=== PATIENT | female | born 1970 | race Caucasian/White ===

== ENCOUNTER 2019-09-07 18:00 | Emergency (ER) | payer SELFPAY ==
[~2019-09-07] VITALS: Ht 152.4 cm; Wt 59.0 kg
--- NOTE | 2019-09-07 18:30 | NUR ---
client stated to this RN that she no longer wanted to live, states that life without her son is too hard. client asked this RN to kill her, I advised Dr. Fulton of the conversation and called [facility] for sitter. client pulled her IV and let her arm dangle over the side of the bed to bleed onto the floor. this RN went into room to aske her why she had done that and she pretended to be unconcscious, clients eyes were twitching and client was asked to please stop this behavior. client awakened and began to cry.
[2019-09-07] MEDS ORDERED: SODIUM CHLORIDE 0.9% 1000ML 1,000 ML IV STA (19:11)
--- NOTE | 2019-09-07 19:20 | NUR ---
Seen pt lying on her right side, asleep. Sitter at bedside for continous monitoring.
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
[2019-09-07] MEDS ORDERED: ONDANSETRON HCL INJ 2MG/ML 2ML 2 MG/ML VIAL IV STA (20:36)
--- NOTE | 2019-09-07 20:54 | Diagnostic Imaging Report ---
Examination: Single AP view of the chest. COMPARISON: None. INDICATION: Seizure DISCUSSION: Lines/tubes: None. Lungs: The lungs are well inflated and clear. No pneumonia or pulmonary edema. Pleura: No pleural effusion or pneumothorax. Heart and mediastinum: The heart and the mediastinum are unremarkable. Bones and soft tissues: No acute bony abnormalities. IMPRESSION: 1. No acute cardiopulmonary abnormalities. Signed by: Dr. Daniel Parrish M.D. on 09/07/2019 8:50 PM
[2019-09-07 23:31] LABS: BASOPHILS # (AUTO) 0.1 (0.0-0.1); BASOPHILS % 0.9 % (0.0-1.0); EOSINOPHILS # (AUTO) 0.3 (0.0-0.4); EOSINOPHILS % 3.2 % (0.0-6.0); HEMATOCRIT 40.2 % (34.2-44.1); HEMOGLOBIN 13.3 g/dL (12.0-16.0); LYMPHOCYTES # (AUTO) 2.9 (1.0-3.2); LYMPHOCYTES % 36.2 % (18.0-39.1); MEAN CORPUSCULAR HEMOGLOBIN 32.1 pg (28-32); MEAN CORPUSCULAR HGB CONC 33.1 g/dL (31-35); MEAN CORPUSCULAR VOLUME 97.1 fL (81-99); MONOCYTES # (AUTO) 0.8 (0.2-0.8); MONOCYTES % 9.6 % (4.4-11.3); NEUTROPHILS # (AUTO) 4.1 (2.1-6.9); NEUTROPHILS % 49.7 % (38.7-80.0); PLATELET COUNT 288 x10e3/uL (140-360); RED BLOOD COUNT 4.14 x10e6/uL (3.6-5.1); RED CELL DISTRIBUTION WIDTH 14.1 % (11.7-14.4)
[2019-09-08 00:01] LABS: ALANINE AMINOTRANSFERASE 32 IU/L (0-55); ALBUMIN 3.8 g/dL (3.5-5.0); ALBUMIN/GLOBULIN RATIO 1.5 (0.8-2.0); ALKALINE PHOSPHATASE 76 IU/L (40-150); ANION GAP 15.1 mmol/L (8-16); BLOOD UREA NITROGEN 6 mg/dL (7-26); BUN/CREATININE RATIO 8 (6-25); CALCIUM 8.2 mg/dL (8.4-10.2); CARBON DIOXIDE 21 mmol/L (22-29); CHLORIDE 112 mmol/L (98-107); CREATINE KINASE 433 IU/L (29-168); CREATININE, SERUM 0.75 mg/dL (0.57-1.11); EST GLOMERULAR FILTRATION RATE > 60 ML/MIN (60-); GLUCOSE 102 mg/dL (74-118); POTASSIUM 3.1 mmol/L (3.5-5.1); SODIUM 145 mmol/L (136-145)
[2019-09-08 01:57] LABS: AMPHETAMINES SCREEN,URINE NEGATIVE (NEGATIVE); BENZODIAZEPINES SCREEN,URINE POSITIVE (NEGATIVE); PHENCYCLIDINE SCREEN,URINE NEGATIVE (NEGATIVE)
[2019-09-08] MEDS ORDERED: SODIUM CHLORIDE 0.9% 1000ML 1,000 ML IV STA (01:59)
[2019-09-08] MEDS: POTASSIUM CHLORIDE 20 MEQ TAB CR PO STA ×2 (05:45→06:10)
[2019-09-08] MEDS ORDERED: POTASSIUM CHLORIDE 20 MEQ TAB CR PO ONE (05:53)
[2019-09-08] MEDS ORDERED: SODIUM CHLORIDE 0.9% 1000ML 1,000 ML ONE (05:53)
== END 2019-09-08 09:11 | disposition home or self-care (01) ==
LOC: ER 18:00
DX: F10.10 Alcohol abuse, uncomplicated (principal); F17.210 Nicotine dependence, cigarettes, uncomplicated
CPT/HCPCS: 36415; 71045; 80053; 80307; 80320; 82550; 82553; 84484; 85025; 99285; J2405; J7030 ×2

== ENCOUNTER 2019-11-14 19:21 | Emergency (ER) | payer SELFPAY ==
[~2019-11-14] VITALS: Ht 152.4 cm; Wt 59.0 kg
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
[2019-11-14] MEDS ORDERED: BACITRACIN ZINC 0.9GM TP ONE (19:45)
--- NOTE | 2019-11-14 20:38 | Diagnostic Imaging Report ---
Exam: Left ankle 3 views History: Pain Comparison: None. Findings: No fracture or malalignment. Joint spaces preserved. No abnormal soft tissue calcification or soft tissue defect. Impression: No acute osseous abnormality Signed by: Dr. Daniel Parrish M.D. on 11/14/2019 8:35 PM
--- OUTSIDE RECORDS SUMMARY | 2019-11-14 22:39 | XMS REPORT | Continuity of Care Document ---
Author Author [facility] Organization [facility] Address [address] [place] [address] [address] [place] [address] Phone Unavailable Care Team Providers Care Hi Lo Driver Name Role Phone NO, PCP PCP Unavailable THEA MCKENZIE Attphys Unavailable Dameon JULES Attphys Unavailable Problems This patient has no known problems. Allergies, Adverse Reactions, Alerts This patient has no known allergies or adverse reactions. Social History Social Habit Start Date Stop Date Quantity Comments Source Sex Assigned At 1970 00:00:00 1970 00:00:00 Female [facility] Medications This patient has no known medications. Vital Signs Vital Name Observation Time Observation Value Comments Source Weight 2019-09-07 18:14:00 130 [lb_av] [facility] BMI (Body Mass Index) 2019-09-07 18:14:00 25.4 kg/m2 [facility] Procedures This patient has no known procedures. Plan of Care Planned Activity Planned Date Details Comments Source Instructions Alcohol Intoxication [facility] Results Test Description Test Time Test Comments Results Result Comments Source ANKLE 3+ VIEWS LEFT 2019-11-14 20:34:00 [facility] [address] [place], [place] [address] Patient Name: DORIAN DUBON MR #: [id number] : 1970 Age/Sex: 48/F Req #: [id number] Adm Physician: Ordered by: THEA MCKENZIE DO Report #: [id number] Location: ER Room/Bed: Procedure: [id number] DX/ANKLE 3+ VIEWS LEFT Exam Date: 11/14/19 Exam Time: 2009 REPORT STATUS: Signed Exam: Left ankle 3 views History: Pain Comparison: None. Findings: No fracture or malalignment. Joint spaces preserved. No abnormal soft tissue calcification or soft tissue defect. Impression: No acute osseous abnormality Signed by: Dr. Kristan Brennan M.D. on 11/14/2019 8:35 PM Dictated By: KRISTAN BRENNAN MD 34 Transcribed By: BETH on 11/14/192034 COPY TO: THEA MCKENZIE DO Urine opiates screening test 2019-09-08 01:10:00 Test Item Urine Opiates Screen (test code = 66147-1) NEGATIVE NEGATIVE ALL TESTS PERFORMED MANUALLY ON [employer] TOX/SEE TESTColumbus Community HospitalBarbiturates screen, [id number] 01:10:00* Test Item Value Reference Range Interpretation Comments Urine Barbiturates Screen (test code = 006505346) NEGATIVE NEGA TIVE [facility] HospitalU[facility] phencyclidine detection by screening [id number] 01:10:00* Test Item Value Reference Range Interpretation Comments Urine Phencyclidine Screen (test code = 66366-7) NEGATIVE NEGAT YAIMA [facility] HospitalUrine amphetamines detection by screen method > 1000 ng/bH1817-63-72 01:10:00* Test Item Value Reference Range Interpretation Comments Urine Amphetamines Screen (test code = 85110-3) NEGATIVE NEGATI VE [facility] HospitalFluoroscopic procedure less than one hour [id number] 01:10:00* Test Item Value Reference Range Interpretation Comments Urine Methamphetamines Screen (test code = Urine Metha mphetamines Screen) NEGATIVE NEGATIVE [facility] Hospital[facility] benzodiazepines detection by screening ilfmrc8285-45-71 01:10:00* Test Item Value Reference Range Interpretation Comments Urine Benzodiazepines Screen (test code = 29512-2) POSITIVE NEG ATIVE This test provides only a screen. Positive results should be repeated by a confi rmatory test.[facility] HospitalUrine cocaine measurement (mass/volume)2019-09-08 01:10:00* Test Item Value Reference Range Interpretation Comments Urine Cocaine Screen (test code = 3398-5) NEGATIVE NEGATIVE [facility] Hospital[facility] cannabinoids detection by screening udfutp2909-94-64 01:10:00* Test Item Value Reference Range Interpretation Comments Urine Cannabinoids Screen (test code = 52261-8) POSITIVE NEGATI VE This test provides only a screen. Positive results should be repeated by a confi rmatory test.[facility] HospitalU[facility] methadone screen 2019-09-08 01:10:00* Test Item Value Reference Range Interpretation Comments Urine Methadone Screen (test code = 26630-3) NEGATIVE NEGATIVE THESE RESULTS ARE FOR MEDICAL TREATMENT ONLYTHIS REPORT CONTAINS UNCONFIR MED SCREENING RESULTS*POSITIVE RESULTS WILL BE CONFIRMED BY REFERENCE LAB UPON R EQUEST CUT-OFFDRUG CLASS CONCENTRATION ng/mLAmphetamines 1000Methamphetamines 1000Cocaine Metabolite 300Opiate 300Phencyc lidine 25Cannabinoid 50Barbiturates 300Benzodiazepine 300Methadone 300[facility] automated count (number/volume) 2019-09-07 23:09:00* Test Item Value Reference Range Interpretation Comments White Blood Count (test code = 6690-2) 8.13 4.8-10.8 [facility]Blood erythrocytes automated count (number/volume)2019-09-07 23:09:00* Test Item Value Reference Range Interpretation Comments Red Blood Count (test code = 789-8) 4.14 3.6-5.1 [facility] HospitalBlood hemoglobin measurement (moles/volume)2019-09-07 23:09:00* Test Item Value Reference Range Interpretation Comments Hemoglobin (test code = 92773-8) 13.3 12.0-16.0 [facility] HospitalAutomated blood hematocrit (volume fraction)2019-09-07 23:09:00* Test Item Value Reference Range Interpretation Comments Hematocrit (test code = 4544-3) 40.2 34.2-44.1 [facility] HospitalAutomated erythrocyte mean corpuscular cwlypt5932-21-93 23:09:00* Test Item Value Reference Range Interpretation Comments Mean Corpuscular Volume (test code = 787-2) 97.1 81-99 [facility] HospitalAutom[facility] erythrocyte mean corpuscular hemoglobin (mass per erythrocyte)2019-09-07 23:09:00* Test Item Value Reference Range Interpretation Comments Mean Corpuscular Hemoglobin (test code = 785-6) 32.1 28-32 [facility] HospitalAutomated erythrocyte mean corpuscular hemoglobin concentration measurement (mass/volume)2019-09-07 23:09:00* Test Item Value Reference Range Interpretation Comments Mean Corpuscular Hemoglobin Concent (test code = 786-4) 33.1 31-35 [facility] HospitalRDW EjzDu-Mtg8897-60-29 23:09:00* Test Item Value Reference Range Interpretation Comments Red Cell Distribution Width (test code = 75855-9) 14.1 11.7 -14.4 [facility] HospitalAutom[facility] blood platelet count (count/volume)2019-09-07 23:09:00* Test Item Value Reference Range Interpretation Comments Platelet Count (test code = 777-3) 288 140-360 [facility] blood segmented neutrophil count as percentage of total bmohueqchf1783-27-98 23:09:00* Test Item Value Reference Range Interpretation Comments Neutrophils (%) (Auto) (test code = 10851-0) 49.7 38.7-80.0 [facility] HospitalAutom[facility] blood lymphocyte count as percentage ot total aawhjwyrmh8876-60-91 23:09:00* Test Item Value Reference Range Interpretation Comments Lymphocytes (%) (Auto) (test code = 736-9) 36.2 18.0-39.1 [facility] monocyte count as percentage of total pwpaueairj1586-12-61 23:09:00* Test Item Value Reference Range Interpretation Comments Monocytes (%) (Auto) (test code = 5905-5) 9.6 4.4-11.3 [facility] HospitalAutom[facility] blood eosinophil count as percentage of total zoxzmkbvxs7265-34-76 23:09:00* Test Item Value Reference Range Interpretation Comments Eosinophils (%) (Auto) (test code = 713-8) 3.2 0.0-6.0 [facility] HospitalAutnov[facility] hospitaled blood basophil count as percentage of total yyumfpekbv6082-34-99 23:09:00* Test Item Value Reference Range Interpretation Comments Basophils (%) (Auto) (test code = 706-2) 0.9 0.0-1.0 [facility] HospitalFluoroscopic procedure less than one hour jwjnrnjc5517-44-10 23:09:00* Test Item Value Reference Range Interpretation Comments IM GRANULOCYTES % (test code = IM GRANULOCYTES %) 0.4 0.0- 1.0 [facility] HospitalAutnov[facility] hospitaled blood neutrophil count 2019-09-07 23:09:00* Test Item Value Reference Range Interpretation Comments Neutrophils # (Auto) (test code = 751-8) 4.1 2.1-6.9 [facility] HospitalBlood lymphocytes count (number/volume) 2019-09-07 23:09:00* Test Item Value Reference Range Interpretation Comments Lymphocytes # (Auto) (test code = 76933-0) 2.9 1.0-3.2 [facility] monocytes automated count (number/volume)2019-09-07 23:09:00* Test Item Value Reference Range Interpretation Comments Monocytes # (Auto) (test code = 742-7) 0.8 0.2-0.8 [facility] HospitalAutomated blood eosinophil count 2019-09-07 23:09:00* Test Item Value Reference Range Interpretation Comments Eosinophils # (Auto) (test code = 711-2) 0.3 0.0-0.4 [facility] HospitalAutomated blood basophil count (count/volume)2019-09-07 23:09:00* Test Item Value Reference Range Interpretation Comments Basophils # (Auto) (test code = 704-7) 0.1 0.0-0.1 [facility] HospitalFluoroscopic procedure less than one hour qlprohlu9027-20-78 23:09:00* Test Item Value Reference Range Interpretation Comments Absolute Immature Granulocyte (auto (nely t code = Absolute Immature Granulocyte (auto) 0.03 0-0.1 [facility] or plasma sodium measurement (moles/volume)2019-09-07 23:09:00* Test Item Value Reference Range Interpretation Comments Sodium Level (test code = 2951-2) 145 136-145 [facility]ererum or plasma potassium measurement (moles/volume)2019-09-07 23:09:00* Test Item Value Reference Range Interpretation Comments Potassium Level (test code = 2823-3) 3.1 3.5-5.1 [facility]ere[facility] or plasma chloride measurement (moles/volume)2019-09-07 23:09:00* Test Item Value Reference Range Interpretation Comments Chloride Level (test code = 2075-0) 112 98-107 [facility]ererum or plasma carbon dioxide, total measurement (moles/volume)2019-09-07 23:09:00* Test Item Value Reference Range Interpretation Comments Carbon Dioxide Level (test code = 2028-9) 21 22- [facility]ererum or plasma anion dyx6529-75-90 23:09:00* Test Item Value Reference Range Interpretation Comments Anion Gap (test code = 29728-9) 15.1 8-16 [facility]ererum or plasma urea nitrogen measurement (mass/volume)2019-09-07 23:09:00* Test Item Value Reference Range Interpretation Comments Blood Urea Nitrogen (test code = 3094-0) 6 7-26 [facility]ererum or plasma creatinine measurement (mass/volume)2019-09-07 23:09:00* Test Item Value Reference Range Interpretation Comments Creatinine (test code = 2160-0) 0.75 0.57-1.11 [facility]ererum or plasma urea nitrogen/creatinine mass tvfct9601-53-49 23:09:00* Test Item Value Reference Range Interpretation Comments BUN/Creatinine Ratio (test code = 3097-3) 8 6-25 [facility] HospitalEstimated glomerular filtration rate (GFR) nqevbldgzftjj1528-42-88 23:09:00* Test Item Value Reference Range Interpretation Comments Estimat Glomerular Filtration Rate (test code = 344795062) > 60 >60 Ranges were taken from the National Kidney Disease Education Program and the [facility] Kidney Foundation literature.Reference ranges:60 or greater: Izzvdu69-07 ( for 3 consecutive months): Chronic kidney disease 15 or less: Kidney failureColumbus Community HospitalGlucose tbqdfdbccok0936-26-72 23:09:00* Test Item Value Reference Range Interpretation Comments Glucose Level (test code = EGL2672) 102 74-118 [facility]ererum or plasma calcium measurement (mass/volume)2019-09-07 23:09:00* Test Item Value Reference Range Interpretation Comments Calcium Level (test code = 27879-9) 8.2 8.4-10.2 [facility] HospitalFluoroscopic procedure less than one hour pfjvrott6664-71-72 23:09:00* Test Item Value Reference Range Interpretation Comments Aspartate Amino Transf (AST/SGOT) (test code = Aspartate Amino Transf (AST/SGOT)) 51 5-34 [facility]ererum or plasma alanine aminotransferase measurement (enzymatic activity/volume)2019-09-07 23:09:00* Test Item Value Reference Range Interpretation Comments Alanine Aminotransferase (ALT/SGPT) (test code = 1742-6) 32 0-55 [facility]ererum or plasma protein measurement (mass/volume)2019-09-07 23:09:00* Test Item Value Reference Range Interpretation Comments Total Protein (test code = 2885-2) 6.3 6.5-8.1 [facility]ererum or plasma albumin measurement (mass/volume)2019-09-07 23:09:00* Test Item Value Reference Range Interpretation Comments Albumin (test code = 1751-7) 3.8 3.5-5.0 [facility] HospitalPlasma globulin measurement (mass/volume) 2019-09-07 23:09:00* Test Item Value Reference Range Interpretation Comments Globulin (test code = 78284-6) 2.5 2.3-3.5 [facility]ererum or plasma albumin/globulin mass inrtu8427-31-48 23:09:00* Test Item Value Reference Range Interpretation Comments Albumin/Globulin Ratio (test code = 1759-0) 1.5 0.8-2.0 [facility]ererum or plasma alkaline phosphatase measurement (enzymatic activity/volume)2019-09-07 23:09:00* Test Item Value Reference Range Interpretation Comments Alkaline Phosphatase (test code = 6768-6) 76 40-150 [facility] Centererum or plasma creatine kinase measurement (enzymatic activity/volume)2019-09-07 23:09:00* Test Item Value Reference Range Interpretation Comments Creatine Kinase (test code = 2157-6) 433 29-168 [facility] Centererum or plasma creatine kinase MB measurement (mass/volume)2019-09-07 23:09:00* Test Item Value Reference Range Interpretation Comments Creatine Kinase MB (test code = 62621-2) 3.10 0-4.3 [facility] Centererum or plasma troponin i.cardiac measurement (mass/volume)2019-09-07 23:09:00* Test Item Value Reference Range Interpretation Comments Troponin I (test code = 38124-3) < 0.05 0.0-0.40 [facility] Centererum or plasma ethanol measurement (mass/volume)2019-09-07 23:09:00* Test Item Value Reference Range Interpretation Comments Ethyl Alcohol Level (test code = 5643-2) 210.8 0.0-10.0 [facility] HospitalCHEST SINGLE (PORTABLE)2019-09-07 20:49:00 [facility] [address] [place] [address] Patient Name: DORIAN DUBON MR #: [id number] : 1970 Age/Sex: 48/F Req #: [id number] Adm Physician: Ordered by: AMINAH GALLEGOS DO Report #: [id number] Location: ER Room/Bed: Procedure: [id number] DX/CHEST SIN GLE (PORTABLE) Exam Date: 09/07/19 Exam Time: 2014 REPORT STATUS: Signed Examination : Single AP view of the chest. COMPARISON: None. INDICATION: Seizure DISCUSSION: Lines/tubes: None. Lungs: The lungs are well in flated and clear. No pneumonia or pulmonary edema. Pleura: No pleural effu siddharth or pneumothorax. Heart and mediastinum: The heart and the mediastinum are unremarkable. Bones and soft tissues: No acute bony abnormalities. IMPRESSION: 1. No acute cardiopulmonary abnormalities. Signed by: Dr. Kristan Brennan M.D. on 09/07/2019 8:50 PM Dictated By: KRISTAN PATE MD 49 Trans cribed By: BETH on 09/07/192049 COPY TO: AMINAH GALLEGOS DO
== END 2019-11-14 21:10 | disposition home or self-care (01) ==
LOC: ER 19:32
DX: S91.002A Unspecified open wound, left ankle, initial encounter (principal); W10.8XXA Fall (on) (from) other stairs and steps, initial encounter; F10.10 Alcohol abuse, uncomplicated; F17.210 Nicotine dependence, cigarettes, uncomplicated
CPT/HCPCS: 99283

== ENCOUNTER 2019-12-06 08:51 | Emergency (ER) | payer SELFPAY ==
[~2019-12-06] VITALS: Ht 152.4 cm; Wt 59.0 kg
[2019-12-06] MEDS ORDERED: TYLENOL325 M2 PO (09:06)
[2019-12-06] MEDS ORDERED: AZITHROMYCIN250 MG PO (09:06)
[2019-12-06] MEDS ORDERED: DECADRON6 MG PO (09:06)
[2019-12-06] MEDS ORDERED: ZOFRAN4 MG SL (09:06)
[2019-12-06] MEDS ORDERED: ACETAMINOPHEN 325 MG TAB ONE (09:08)
[2019-12-06] MEDS ORDERED: ONDANSETRON HCL 4 MG ORAL DISINTEGRATING TAB ONE (09:08)
[2019-12-06] MEDS ORDERED: ACETAMINOPHEN 325 MG TAB PO ONE (09:15)
--- NOTE | 2019-12-06 09:17 | Emergency Department Note ---
History of Present Illnes History of Present Illness Chief Complaint: COVID PUI History of Present Illness This is a 49 year old female arrives the ED with complaints of cough fever and chills, states she is [facility] and there has been a recent outbreak of the coronavirus. Patient states she came to the ER to get checked out" with swabs. . 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 Arrival Mode: Car Onset (how long ago): day(s) Radiation: Reports non-radiation Severity: mild Duration (how long): day(s) Timing of current episode: constant Progression: waxing and waning Chronicity: new Context: Reports other (coronavirus exposure) Past Medical/Family History Physician Review I have reviewed the patient's past medical and family history. Any updates have been documented here. Past Medical History Recent Fever: No Clinical Suspicion of Infectio: Yes New/Unexplained Change in Ment: No Past Medical History: None Past Surgical History: Appendectomy, Hysterectomy, Other Surgery: PARTIAL HYSTERECTOMY RT KNEE SX Social History Physically hurt or threatened: No Review of Systems Review of Systems Constitutional: Reports fever EENTM: Reports no symptoms Cardiovascular: Reports no symptoms Respiratory: Reports as per HPI, Reports cough Gastrointestinal: Reports no symptoms Genitourinary: Reports no symptoms Musculoskeletal: Reports no symptoms Integumentary: Reports no symptoms Neurological: Reports no symptoms Psychological: Reports no symptoms Endocrine: Reports no symptoms Hematological/Lymphatic: Reports no symptoms Physical Exam Related Data Allergies: Coded Allergies: ketorolac (Verified Allergy, Intermediate, 12/06/19) meperidine (Verified Allergy, Intermediate, 12/06/19) tramadol (Verified Allergy, Intermediate, 12/06/19) Triage Vital Signs Vital Signs Date Time Temp Pulse Resp B/P (MAP) Pulse Ox O2 Delivery O2 Flow Rate FiO2 12/06/19 08:58 98.6 77 20 129/98 100 Room Air Vital signs reviewed: Yes Physical Exam CONSTITUTIONAL Constitutional: Present well-developed, Present well-nourished HENT HENT: Present normocephalic, Present atraumatic, Present oropharynx clear/moist, Present nose normal HENT L/R: Present left ext ear normal, Present right ext ear normal EYES Eyes: Reports PERRL, Reports conjunctivae normal NECK Neck: Present ROM normal PULMONARY Pulmonary: Present effort normal, Present breath sounds normal CARDIOVASCULAR Cardiovascular: Present regular rhythm, Present heart sounds normal, Present capillary refill normal, Present normal rate GASTROINTESTINAL Abdominal: Present soft, Present nontender, Present bowel sounds normal GENITOURINARY Genitourinary: Present exam deferred SKIN Skin: Present warm, Present dry MUSCULOSKELETAL Musculoskeletal: Present ROM normal NEUROLOGICAL Neurological: Present alert, Present oriented x 3, Present no gross motor or sensory deficits PSYCHOLOGICAL Psychological: Present mood/affect normal, Present judgement normal Assessment & Plan Medical Decision Making MDM 49-year-old well-appearing female arrives to the ED with complaints of cough fever loss of taste and smell. Patient is clinically presenting with signs and symptoms consistent with Covid 19. Patient informed she is positive until proven otherwise. Patient's oxygen saturation remained 99% even on exertion, no evidence of tachypnea or dyspnea noted in the ED. Spoke present length about the importance of sleeping on her stomach and rotating from side to side. Z-Aung given, signs and symptoms for return discussed. Assessment & Plan Final Impression: (1) COVID-19 Depart Disposition: HOME, SELF-CARE Last Vital Signs Date Time Temp Pulse Resp B/P (MAP) Pulse Ox O2 Delivery O2 Flow Rate FiO2 12/06/19 08:58 98.6 77 20 129/98 100 Room Air Home Meds Active Scripts Acetaminophen (Tylenol) 325 Mg Capsule, 650 MG PO Q8HR PRN for ELEVATED TEMPERATURE, #14 Prov:AMINAH GALLEGOS, DO 12/06/19 Dexamethasone (Decadron) 6 Mg Tablet, 6 MG PO DAILY, #5 Prov:AMINAH GALLEGOS, DO 12/06/19 Ondansetron Hcl* (ZOFRAN*) 4 Mg Tablet, 4 MG SL Q6HR PRN for NAUSEA, #14 MG 0 Refills Prov:SANGRDUTCHICA, DO 12/06/19 Azithromycin (Z-AUNG) 250 Mg Tablet, 1 PKG PO DIRECTED, #1 PKG 0 Refills Prov:AMINAH GALLEGOS DO 12/06/19 Medications in the ED Acetaminophen 650 mg STK-MED ONCE .ROUTE ; Start 12/06/19 at 09:08; Stop 12/06/19 at 09:01; Status DC Ondansetron HCl 4 mg STK-MED ONCE .ROUTE ; Start 12/06/19 at 09:08; Stop 12/06/19 at 09:01; Status DC [place], Dec 06, 2019 09:17
--- OUTSIDE RECORDS SUMMARY | 2019-12-06 09:20 | XMS REPORT | Clinical Summary ---
Author Author [facility] Organization [facility] Address Unknown Phone Unavailable Care Team Providers Care Hr Representative Name Role Phone PCP Unavailable Allergies Comments Active Allergy Reactions Severity Noted Date Povidone-Iodine 02/09/2019 Meperidine 02/09/2019 Ethyl Alcohol 02/09/2019 Ketorolac 02/09/2019 Tramadol 02/09/2019 Medications End Date Status Medication Sig Dispensed Refills Start Date Active gabapentin (NEURONTIN) Start with 1 80 tablet 2 800 mg tabletIndications: pills once 0 Radiculopathy day for 1-2 days and increase to 1 pills 2 times x 1-2 days and then if no side effects increase to 1 pills 3 times a day.. 07/19/2019 Discontinued (Therapy comple gretchen) acetaminophen-codeine Take 1 tablet 15 tablet 0 (TYLENOL/CODEINE #3) by mouth 9 300-30 mg per every 6 hours tabletIndications: as needed for Chronic low back pain Pain. with right-sided sciatica, unspecified back pain laterality 07/19/2019 Discontinued (Reorder) gabapentin (NEURONTIN) Take 1 tablet 70 tablet 1 0 800 mg tabletIndications: by mouth 3 0 Radiculopathy times daily. Active Problems Problem Noted Date Back pain 05/04/2019 Encounters Care Team Description Date Type Specialty Himanshu Delong MD Radiculopathy 07/19/2019 Telephonic Neurology Encounter Jesús Valencia MD Radiculopathy 06/01/2019 Hospital Radiology Encounter Jesús Valencia MD Khan, Abdul B, ResidentMD Radiculopathy (Primary Dx); Back pain 05/04/2019 Office Visit Neurosurgery Danitza Niteo Resident 05/04/2019 Orders Only Neurosurgery Dalton Mercado MD Chronic low back pain with right-sided s ciatica, unspecified back pain laterality (Primary Dx) 02/09/2019 Emergency Emergency Medicine after 12/05/2018 Family History Medical History Relation Name Comments Alzheimer's disease Mother Fibromyalgia Mother Relation Name Status Comments Mother Social History Date Tobacco Use Types Packs/Day Years Used Former Smoker Smokeless Tobacco: Never Used Sex Assigned at Date Recorded Not on file Industry Job Start Date Occupation Not on file Not on file Not on file Travel End Travel History Travel Start No recent travel history available. Last Filed Vital Signs Reading Time Taken Comments Vital Sign 105/73 05/04/2019 11:40 AM OIL OPERATOR Blood Pressure 108 05/04/2019 11:40 AM OIL OPERATOR Pulse 37 C (98.6 F) 05/04/2019 11:40 AM OIL OPERATOR Temperature 18 05/04/2019 11:40 AM OIL OPERATOR Respiratory Rate 99% 02/09/2019 12:08 PM CDT Oxygen Saturation - - Inhaled Oxygen Concentration 60.8 kg (134 lb) 05/04/2019 11:40 AM OIL OPERATOR Weight 157.5 cm (5' 2") 05/04/2019 11:40 AM OIL OPERATOR Height 24.51 05/04/2019 11:40 AM OIL OPERATOR Body Mass Index Plan of Treatment Health Maintenance Due Date Last Done Comments Cervical Cancer Scrn (3 1989 Yrs) Breast Cancer Scrn 2008 (Yearly) Colorectal Cancer Scrn 2018 Annual (FIT/FOBT) Age 50 to 75 IMM Influenza Seasonal 01/10/2020 Oct to June (>/= 19 yrs) Procedures Comments Procedure Name Priority Date/Time Associated Diag nosis MRI LUMBAR SPINE W/O OPAL 06/01/2019 Radiculop athy CONTRAST 10:26 AM OIL OPERATOR after 12/05/2018 Results * MRI LUMBAR SPINE W/O CONTRAST (06/01/2019 10:26 AM OIL OPERATOR) Specimen Impressions Performed At IMPRESSION: [facility] 1. Normal conus medullaris and cauda equina nerve roots. 2. Mild degenerative changes of the d isc and facet joints throughout the lumbar spine without significant sp inal canal or foraminal stenosis. No evidence of nerve root compression. 3. Subtle left-sided curvature. Dictated By: Jomar Grady MD, 06/04/2019 8 :11 AM I have reviewed the study and agree wit h the findings in this report. Signed By: Karis Silva MD, 06/05/2019 12 :52 AM Narrative Performed At Exam: MRI of the lumbar spine without contrast SMS History: Back pain, cauda equina syndro me suspected Radiculopathy Comparison studies: None Technique: Sagittal and axial T2, Sagittal T1 and Inversion recovery, axial T2 and spin density oblique. FINDINGS: Number of non-rib bearing lumbar verteb ral bodies: 5. Alignment: Normal lordosis.Subtle left- sided curvature. Soft tissues: No signal abnormalities. Posterior paraspinal muscles: Well pres erved. No signal abnormalities. Conus medullaris:Normal, ends at T12-L1 . Cauda equina: No masses or arachnoidi tis. Vertebrae: Normal in height and signal. No infection or neoplasm. Degenerative changes: Mildly degenerated discs from L1-2 to L 5-S1 with loss of normal T2 signal L1-L2: Minimal symmetric disc bulge without ca nal or foraminal stenosis. Patent spinal canal and foramina. L2-L3: Mild decreased disc height, asymmetric right disc bulge and bilateral facet arthroses. Minimal canal narrowin g. No foraminal stenosis. L3-L4 Mild asymmetric right disc bulge and bi lateral facet arthroses. No significant canal or foraminal stenoses . L4-L5: Mild bilateral facet arthroses. No sign ificant canal or foraminal stenoses. L5-S1: Mild facet arthrosis. No spinal canal o r foraminal stenosis. Procedure Note Interface, Rad/Mammog In - 06/05/2019 12:57 AM OIL OPERATOR Exam: MRI of the lumbar spine without contrast History: Back pain, cauda equina syndrome suspected Radiculopathy Comparison studies: None Technique: Sagittal and axial T2, Sagittal T1 and Inversion recovery, axial T2 and spin density oblique. FINDINGS: Number of non-rib bearing lumbar vertebral bodies: 5. Alignment: Normal lordosis.Subtle left-sided curvature. Soft tissues: No signal abnormalities. Posterior paraspinal muscles: Well preserved. No signal abnormalities. Conus medullaris:Normal, ends at T12-L1. Cauda equina: No masses or arachnoiditis. Vertebrae: Normal in height and signal. No infection or neoplasm. Degenerative changes: Mildly degenerated discs from L1-2 to L5-S1 with loss of normal T2 signal L1-L2: Minimal symmetric disc bulge without canal or foraminal stenosis. Patent spinal canal and foramina. L2-L3: Mild decreased disc height, asymmetric right disc bulge and bilateral facet arthroses. Minimal canal narrowing. No foraminal stenosis. L3-L4 Mild asymmetric right disc bulge and bilateral facet arthroses. No significant canal or foraminal stenoses. L4-L5: Mild bilateral facet arthroses. No significant canal or foraminal stenoses. L5-S1: Mild facet arthrosis. No spinal canal or foraminal stenosis. IMPRESSION IMPRESSION: 1. Normal conus medullaris and cauda eq uina nerve roots. 2. Mild degenerative changes of the dis c and facet joints throughout the lumbar spine without significant spinal canal or foraminal stenosis. No evidence of nerve root compression. 3. Subtle left-sided curvature. Dictated By: Jomar Grady MD, 06/04/2019 8:11 AM I have reviewed the study and agree with the findings in this report. Signed By: Karis Silva MD, 06/05/2019 12:52 AM Performing Organization Address City/State/Zipcode Ph one Number SMS after 12/05/2018 Insurance Type Payer Benefit Subscriber ID Effective Phone Address Plan / Dates Group [place] [employer] [place] 2019 [address] [employer] FAMILY - [id number] PLANNING [address] [place], [place] [id number] [facility] [employer] [employer] xxxxxxx 2019 [id number] [facility] [address] [place] [address]
--- OUTSIDE RECORDS SUMMARY | 2019-12-06 09:20 | XMS REPORT | Clinical Summary ---
Author Author [facility] Organization [facility] Address Unknown Phone Unavailable Care Team Providers Care User Experience Analyst Name Role Phone Selene Conteh MD PCP Allergies Comments Active Allergy Reactions Severity Noted Date Organ shut down Alcohol Other (See 04/15/2019 Comments) Isopropyl Alcohol Rash Low 04/15/2019 Prochlorperazine 07/12/2018 Meperidine 07/12/2018 Iodine Hives 08/20/2018 Ketorolac 07/12/2018 Tramadol 07/12/2018 Medications End Date Status Medication Sig Dispensed Refills Start Date Active gabapentin (NEURONTIN) Take 600 mg 0 600 mg tablet by mouth 3 (three) times a day. 12/17/2018 cyclobenzaprine Take 1 tablet 20 tablet 0 11/18/19 1 (FLEXERIL) 10 mg tablet (10 mg total) 9 by mouth 2 (two) times a day as needed for muscle spasms for up to 30 days. 02/02/2019 cyclobenzaprine Take 1 tablet 10 tablet 0 01/04/20 1 (FLEXERIL) 10 mg tablet (10 mg total) 9 by mouth 2 (two) times a day as needed for muscle spasms for up to 30 days. 01/08/2019 methylPREDNISolone follow 21 tablet 0 01 (MEDROL DOSEPAK) 4 mg package 9 tablet directions 01/04/2019 Discontinued (Reorder) acetaminophen-codeine Take 1 tablet 10 tablet 0 (TYLENOL WITH CODEINE #3) by mouth 9 300-30 mg per every 6 (six) tabletIndications: acute hours as pain needed for severe pain for up to 5 days .Acute Pain. 01/04/2019 Discontinued (Reorder) acetaminophen-codeine Take 1 tablet 10 tablet 0 (TYLENOL WITH CODEINE #3) by mouth 9 300-30 mg per every 6 (six) tabletIndications: acute hours as pain needed for severe pain for up to 5 days .Acute Pain. 01/09/2019 acetaminophen-codeine Take 1 tablet 10 tablet 0 (TYLENOL WITH CODEINE #3) by mouth 9 300-30 mg per every 6 (six) tabletIndications: acute hours as pain needed for severe pain for up to 5 days .Acute Pain. 02/08/2019 acetaminophen-codeine Take 1-2 15 tablet 0 01/10 (TYLENOL WITH CODEINE #3) tablets by 9 300-30 mg per mouth every 6 tabletIndications: acute (six) hours pain as needed for moderate pain for up to 4 days .Acute Pain. 03/15/2019 predniSONE (DELTASONE) 20 Take 2 20 tablet 0 mg tablet tablets (40 9 mg total) by mouth daily for 10 days. 04/04/2019 cyclobenzaprine Take 1 tablet 20 tablet 0 03/05/20 1 (FLEXERIL) 10 mg tablet (10 mg total) 9 by mouth 2 (two) times a day as needed for muscle spasms for up to 30 days. 04/15/2019 Discontinued (Med List Clean up) gabapentin (NEURONTIN) Take 300 mg 0 300 mg capsule by mouth 3 (three) times a day. 04/23/2019 methylPREDNISolone follow 21 tablet 0 02 (MEDROL, JOHNATHAN,) 4 mg package 0 tablet directions 04/25/2019 levoFLOXacin (LEVAQUIN) Take 1 tablet 7 tablet 0 750 MG tablet (750 mg 0 total) by mouth daily for 7 days. 05/18/2019 albuterol (PROAIR HFA) 90 Inhale 2 18 g 11 mcg/actuation inhaler puffs every 6 0 (six) hours as needed for wheezing for up to 30 days. 06/08/2019 acetaminophen-codeine Take 1 tablet 10 tablet 0 (TYLENOL WITH CODEINE #3) by mouth 0 300-30 mg per every 6 (six) tabletIndications: acute hours as pain needed for severe pain for up to 5 days .acute pain. Active Problems Problem Noted Date Acute renal failure 08/14/2018 Resolved Problems Problem Noted Date Resolved Date Lingular pneumonia 04/15/2019 04/18/2019 Encounters Care Team Description Date Type Specialty Ariana Real MD Sprain of left ankle, unspecified ligame nt, initial encounter (Primary Dx); Acute left ankle pain 06/03/2019 Emergency Emergency Medicine Yury Gamez Jr., MD Neela, Rekha Srinivas, MD Joglekar, Swati, MD Darr, Umar, MD Abouelseoud, Tanseem Hamad Mohamed A, MD Lingular pneumonia (Primary Dx) 04/15/2019 [facility] Internal Ks dicine - Encounter 04/18/2019 Anthony Prescott MD Chronic back pain, unspecified back loca tion, unspecified back pain laterality (Primary Dx) 03/05/2019 Emergency Emergency Medicine Eric Plata MD Chronic bilateral low back pain with rig ht-sided sciatica (Primary Dx) 02/04/2019 Emergency Emergency Medicine Carrillo Fiore MD Acute right-sided low back pain with augusto ateral sciatica (Primary Dx) 01/04/2019 Emergency Emergency Medicine Beltran Gomez MD Back pain with sciatica (Primary Dx) 01/03/2019 Emergency Emergency Medicine after 12/05/2018 Immunizations Name Administration Dates Next Due Pneumococcal 04/17/2019 (Deferred: Other - patient prefer Polysaccharide receiving at discharge) Social History Date Tobacco Use Types Packs/Day Years Used 07/16/2011 - 08/13/2018 Former Smoker Cigarettes 0.5 Smokeless Tobacco: Never Used Drinks/Week oz/Week Comments Alcohol Use stoipped alcohol use No Alcohol Habits Answer Date Recorded How often do you have a drink containing alcohol? Never 07/12/2018 How many drinks containing alcohol do you have on No t asked a typical day when you are drinking? How often do you have six or more drinks on one Not asked occasion? Sex Assigned at Date Recorded Not on file Industry Job Start Date Occupation Not on file Not on file Not on file Travel End Travel History Travel Start No recent travel history available. Last Filed Vital Signs Reading Time Taken Comments Vital Sign 100/71 06/03/2019 4:28 PM STARTING SHEET TANK OPERATOR Blood Pressure 92 06/03/2019 4:28 PM STARTING SHEET TANK OPERATOR Pulse 36.6 C (97.9 F) 06/03/2019 3:13 PM STARTING SHEET TANK OPERATOR Temperature 16 06/03/2019 4:28 PM STARTING SHEET TANK OPERATOR Respiratory Rate 96% 06/03/2019 4:28 PM STARTING SHEET TANK OPERATOR Oxygen Saturation - - Inhaled Oxygen Concentration 59 kg (130 lb) 06/03/2019 3:12 PM STARTING SHEET TANK OPERATOR Weight 157.5 cm (5' 2") 06/03/2019 3:12 PM STARTING SHEET TANK OPERATOR Height 23.78 06/03/2019 3:12 PM STARTING SHEET TANK OPERATOR Body Mass Index Plan of Treatment Health Maintenance Due Date Last Done Comments CERVICAL CANCER SCREENING 1989 BREAST CANCER SCREENING 2018 COLONOSCOPY SCREENING 2018 SHINGLES VACCINES (#1) 2018 INFLUENZA VACCINE 01/10/2020 01/09/2019 Procedures Comments Procedure Name Priority Date/Time Associated Diag nosis SPLINT APPLICATION Routine 06/03/2019 4:18 PM STARTING SHEET TANK OPERATOR XR ANKLE 3+ VW LEFT STAT 06/03/2019 3:37 PM STARTING SHEET TANK OPERATOR XR FOOT 3+ VW LEFT STAT 06/03/2019 3:37 PM STARTING SHEET TANK OPERATOR LACTIC ACID LEVEL Timed 04/16/2019 3:36 AM STARTING SHEET TANK OPERATOR LACTIC ACID LEVEL, SEPSIS Timed 04/15/2019 - NOW AND REPEAT 2X EVERY 11:56 PM STARTING SHEET TANK OPERATOR 3 HOURS LACTIC ACID LEVEL, SEPSIS Timed 04/15/2019 - NOW AND REPEAT 2X EVERY 8:51 PM STARTING SHEET TANK OPERATOR 3 HOURS LACTIC ACID LEVEL, SEPSIS Timed 04/15/2019 - NOW AND REPEAT 2X EVERY 5:44 PM STARTING SHEET TANK OPERATOR 3 HOURS CONSULT TO SEPSIS [facility]ine [facility]/15[facility]2019 [facility] RESPONSE TEAM 4:32 PM STARTING SHEET TANK OPERATOR CREATINE KINASE, TOTAL Routine 04/15/2019 (CPK) 3:21 PM STARTING SHEET TANK OPERATOR LACTIC ACID LEVEL Routine 04/15/2019 3:21 PM STARTING SHEET TANK OPERATOR BLOOD CULTURE, AEROBIC & Routine 04/15/2019 ANAEROBIC 10:47 AM STARTING SHEET TANK OPERATOR BLOOD CULTURE, AEROBIC & Routine 04/15/2019 ANAEROBIC 10:23 AM STARTING SHEET TANK OPERATOR XR CHEST 2 VW STAT 04/15/2019 9:28 AM STARTING SHEET TANK OPERATOR ESTIMATED GFR STAT 04/15/2019 9:03 AM STARTING SHEET TANK OPERATOR COMPREHENSIVE METABOLIC STAT 04/15/2019 PANEL 9:03 AM STARTING SHEET TANK OPERATOR HC COMPLETE BLD COUNT STAT 04/15/2019 W/AUTO DIFF 9:03 AM STARTING SHEET TANK OPERATOR STREP SCREEN CULTURE STAT 04/15/2019 9:00 AM STARTING SHEET TANK OPERATOR RESPIRATORY PATHOGEN Routine 04/15/2019 PANEL 8:46 AM STARTING SHEET TANK OPERATOR GROUP A STREP, RAPID Routine 04/15/2019 ANTIGEN 8:46 AM STARTING SHEET TANK OPERATOR INFLUENZA ANTIGEN TEST, Routine 04/15/2019 REFLEX NEGATIVE TO RPP 8:46 AM STARTING SHEET TANK OPERATOR MRI LUMBAR SPINE WO STAT 02/04/2019 CONTRAST 10:49 PM CDT ESTIMATED GFR STAT 02/04/2019 9:55 PM CDT COMPREHENSIVE METABOLIC STAT 02/04/2019 PANEL 9:55 PM CDT HC COMPLETE BLD COUNT STAT 02/04/2019 W/AUTO DIFF 9:[address] RENAL STONE PROTOCOL STAT 01/04/2019 10:53 PM CDT URINALYSIS SCREEN AND Routine 01/04/2019 MICROSCOPY, WITH REFLEX 8:[address] TO C[address]URE [address] LUMBAR SPINE WO STAT 01/03/2019 CONTRAST 12:04 PM CDT after 12/05/2018 Results * Splint Application (06/03/2019 4:18 PM STARTING SHEET TANK OPERATOR) Narrative Performed At Karl Dutton NP 2019 4:28 PM Splint Application Performed by: Karl Dutton NP Authorized by: Karl Dutton NP Consent: Consent obtained: Verbal Consent given by: Patient Risks discussed: Skin discoloration , distal paresthesia, pain and swelling Alternatives discussed: Referral Pre-procedure details: Sensation: Normal Skin color: [place] Procedure details: Laterality: Left Location: Ankle Ankle: L ankle Supplies used: Aircast and James wrap. Post-procedure details: Pain: Unchanged Sensation: Normal Skin color: [place] Patient tolerance of procedure: Cookie erated well, no immediate complications * XR Ankle 3+ Vw Left (06/03/2019 3:37 PM STARTING SHEET TANK OPERATOR) Specimen Narrative Performed At EXAMINATION: XR ANKLE 3 VW LEFT [facility] CLINICAL HISTORY: Ankle pain initia l exam COMPARISON: No Prior IMPRESSION: 1.The bones, soft tissues and joints ar e unremarkable. [facility]-[id number] Procedure Note Interface, Radiology Results Incoming - 06/03/2019 3:53 PM STARTING SHEET TANK OPERATOR EXAMINATION: XR ANKLE 3 VW LEFT CLINICAL HISTORY: Ankle pain initial exam COMPARISON: No Prior IMPRESSION: 1.The bones, soft tissues and joints are unremarkable. [id number] Performing Organization Address [facility] Ph one Number [facility] [address] [place] [address] * XR Foot 3+ Vw Left (06/03/2019 3:37 PM STARTING SHEET TANK OPERATOR) Specimen Narrative Performed At EXAMINATION: XR FOOT 3 VW LEFT [facility] CLINICAL HISTORY: Foot pain chronic etiol unknown initial exam COMPARISON: None. TECHNIQUE: 3 views of the left foot obt ained. IMPRESSION: Mild degenerative spurring at the ankle . Tiny plantar calcaneal spur. No acute fracture or dislocation or periarticula r erosion identified. [facility]-[id number] Procedure Note Interface, Radiology Results Incoming - 06/03/2019 3:42 PM STARTING SHEET TANK OPERATOR EXAMINATION: XR FOOT 3 VW LEFT CLINICAL HISTORY: Foot pain chronic etiol unknown initial exam COMPARISON: None. TECHNIQUE: 3 views of the left foot obtained. IMPRESSION: Mild degenerative spurring at the ankle. Tiny plantar calcaneal spur. No acute fracture or dislocation or periarticular erosion identified. [id number] Performing Organization Address [facility] one Number [facility] [address] [place] [address] * Lactic acid level (04/16/2019 3:36 AM STARTING SHEET TANK OPERATOR) Only the most recent of 2 results within the time period is included. Lactic acid 1.8 0.5 - 2.2 mmol/L [facility] Specimen Blood Performing Organization Address City/[facility] Ph one Number [facility] [address] [place] [address] PATHOLOGY AND GENOMIC MEDICINE [facility] [address] * Lactic acid level, SEPSIS - Now and repeat 2x every 3 hours (04/15/2019 11:56 PM STARTING SHEET TANK OPERATOR) Only the most recent of 3 results within the time period is included. Lactic acid 2.7 (H) 0.5 - 2.2 mmol/L [facility] Comment: [facility] Results called to and read [place] back by Ernesto Cordero/TAX PREPARER at HOSPITAL 04/16/2019 00:26 by ln. Specimen Blood Performing Organization Address City/State/[facility] Ph one Number [facility] [address] [place] [address] PATHOLOGY AND GENOMIC MEDICINE [facility] [address] * Sepsis Clinical Assessment (04/15/2019 4:32 PM STARTING SHEET TANK OPERATOR) Narrative Performed At Lucia Wilburn NP 04/15/2019 4:42 PM Source: Respiratory IVF Bolus: 500 cc bolus/ additional res ucitation in process IVF Maintenance: LR at 100/hr Blood Cultures: pending UA/UCX: n/a Sputum CX: RPP pending Lactic Acid: 3.5, continue to trend Anti-infective first dose: Azith/Roceph in Anti-infective scheduled dose: Azith/Ro cephin All measures in place for antibiotic co verage, continue trend lactic acid. Lingular PNA noted on chest xray. Discu ssed with Emmanual TAX PREPARER, additional fluid resuscitation being added. Defer further management to primary team. Patient appears in no acute distress at this time. Sepsis Clinical Assessment Performed by: Lucia Wilburn NP Authorized by: Lucia Wilburn NP Sepsis Clinical Assessment General Assessment Information Current sepsis score: 0 On comfort care?: No If score does not worsen, snooze alerts until: 04/15/2019 04:32 STARTING SHEET TANK OPERATOR SIRS Criteria Heart rate > 90 bpm due to acute condit ion Organ Dysfunction Lactate > 2.0 mmol/L due to acute condi tion Sepsis Assessment Clinical suspicion of infection? Yes Time of suspicion of infection: 020 4:33 PM Clinical suspicion of sepsis?: Yes Sepsis staging: Sepsis Sepsis protocol started? Yes Where did the protocol start?: ED Sta rted Clinical disposition: Remain in room Suspected Type/Source of Infection Suspected Type of Infection: Bacterial Suspected Source of Infection: Pneumoni a Other Acute Diagnoses Other Acute Diagnosis: Pneumonia Focus Exam Sepsis focus exam performed at 04/15/2019 4:33 PM Cardiopulmonary Exam Heart: Regular rate & rhythm Left Lung: Decreased Right Lung: Decreased Capillary Refill Capillary refill rate: Brisk, < 3 s Peripheral Pulses Left dorsalis pedis: Normal Right dorsalis pedis: Normal Left radial: Normal Right radial: Normal Skin Exam Skin exam: Skin color normal Sepsis Related Vitals Heart rate: 92 Temperature: (!) 97.3 F Respiratory rate: 17 Blood pressure: 90/54 Altered mental status: WBC (k/uL) Date Value 04/15/2019 10.1 02/04/2019 9.2 Weight-Based Fluid Bolus Calculation The recommended weight-based bolus volu me: 1,632 mL (dosing weight) Please refer to the MAR for actual med/ fluid administrations. * Creatine kinase, total (CPK) (04/15/2019 3:21 PM STARTING SHEET TANK OPERATOR) Creatine kinase 63 26 - 192 U/L [facility] Specimen Plasma specimen Performing Organization Address City/[facility] Ph one Number [facility] [address] [place] [address] PATHOLOGY AND GENOMIC MEDICINE [facility] [address] [facility] [address] * Blood culture, aerobic & anaerobic (04/15/2019 10:47 AM STARTING SHEET TANK OPERATOR) Only the most recent of 2 results within the time period is included. Blood culture No growth after 5 days of [facility] isolate incubation. [facility] Comment: HOSPITAL Specimen Information Specimen Source: Blood Specimen Site: LFT HAND Specimen Blood Performing Organization Address City/[facility] Ph one Number [facility] DEPARTMENT OF [address] [place] [address] PATHOLOGY AND GENOMIC MEDICINE [address] * XR Chest 2 Vw (04/15/2019 9:28 AM STARTING SHEET TANK OPERATOR) Specimen Narrative Performed At EXAMINATION: XR CHEST 2 VW [facility] CLINICAL HISTORY: Cough new onset COMPARISON: August 18, 2017 chest IMPRESSION: Moderate lingular pneumonia Previously noted right lower lobe pneum onia has cleared No congestion effusion or pneumothorax Cardiomediastinal silhouette normal siz e. Cervical fixator as on previous Two view chest. [id number] Procedure Note Hm Interface, Radiology Results Incoming - 04/15/2019 9:37 AM STARTING SHEET TANK OPERATOR EXAMINATION: XR CHEST 2 VW CLINICAL HISTORY: Cough new onset COMPARISON: August 18, 2017 chest IMPRESSION: Moderate lingular pneumonia Previously noted right lower lobe pneumonia has cleared No congestion effusion or pneumothorax Cardiomediastinal silhouette normal size. Cervical fixator as on previous Two view chest. [id number] Performing Organization Address [facility] Ph one Number [facility] [address] [place] [address] * Estimated GFR (04/15/2019 9:03 AM STARTING SHEET TANK OPERATOR) Only the most recent of 2 results within the time period is included. Pathologist [facility] Estimated GFR 74 mL/min/1.73 m2 [facility] Comment: [facility] G1 >=90 Normal or high G2 60-89 Mildly decreased G3a 45-59 Mildly to moderately decreased G3b 30-44 Moderately to severely decreased G4 15-29 Severely decreased G5 <15 Kidney failure The eGFR was calculated using the Chronic Kidney Disease Epidemiology Collaboration (CKD-EPI) equation. Interpretation is based on recommendations of the National Kidney Foundation-Kidney Disease Outcomes Quality Initiative (NKF-KDOQI) published in 2014. Specimen Plasma specimen Performing Organization Address City/[facility] Ph one Number [facility] [address] [place] [address] PATHOLOGY AND GENOMIC MEDICINE [facility] [address] * CBC with platelet and differential (04/15/2019 9:03 AM STARTING SHEET TANK OPERATOR) Only the most recent of 2 results within the time period is included. WBC 10.1 4.2 - 11.0 k/uL [facility] RBC 4.50 4.04 - 5.86 m/uL [facility] HGB 14.2 11.5 - 15.3 g/dL [facility] HCT 42.7 34.0 - 45.0 % [facility] MCV 94.9 80.0 - 98.0 fL [facility] MCH 31.6 27.0 - 34.0 pg [facility] MCHC 33.3 31.5 - 36.5 g/dL [facility] RDW - SD 44.8 37.0 - 51.0 fL [facility] MPV 9.8 7.4 - 10.4 fL [facility] Platelet count 320 150 - 400 k/uL [facility] Nucleated RBC 0.00 /100 WBC [facility] Neutrophils 68.4 (H) 36.0 - 66.0 % [facility] Lymphocytes 17.8 (L) 24.0 - 44.0 % [facility] Monocytes 9.7 (H) 0.0 - 6.0 % [facility] Eosinophils 3.0 0.0 - 6.0 % [facility] Basophils 0.7 0.0 - 1.2 % [facility] Immature 0.4 0.0 - 1.0 % [facility] granulocytes [facility] Specimen Blood Performing Organization Address City/State/Zipcode Ph one Number [facility] [place] [address] PATHOLOGY AND GENOMIC MEDICINE [address] * Comprehensive metabolic panel (04/15/2019 9:03 AM STARTING SHEET TANK OPERATOR) Only the most recent of 2 results within the time period is included. Sodium 135 135 - 150 mEq/L [facility] Potassium 4.2 3.5 - 5.0 mEq/L [facility] Chloride 99 98 - 112 mEq/L [facility] CO2 22 (L) 24 - 31 mmol/L [facility] Anion gap 14@ANIO 7 - 15 mEq/L [facility] BUN 8 7 - 18 mg/dL [facility] Creatinine 0.90 0.50 - 0.90 mg/dL [facility] Glucose 93 65 - 100 mg/dL [facility] Calcium 9.6 8.3 - 10.2 mg/dL [facility] Protein 7.4 6.3 - 8.3 g/dL [facility] Albumin 3.7 3.5 - 5.0 g/dL [facility] A/G ratio 1.0 0.7 - 3.8 [facility] Alkaline 77 0 - 104 U/L [facility] phosphatase [facility] AST 18 10 - 35 U/L [facility] ALT 14 5 - 50 U/L [facility] Total bilirubin 1.3 (H) 0.2 - 1.2 mg/dL [facility] Specimen Plasma specimen Performing Organization Address City/[facility] Ph one Number [facility] [address] [place] [id number] PATHOLOGY AND GENOMIC MEDICINE [facility] [address] [place] [address] * Strep screen culture (04/15/2019 9:00 AM STARTING SHEET TANK OPERATOR) [facility] Strep screen No beta hemolytic Streptococci [facility] culture isolate isolated [facility] Comment: HOSPITAL Specimen Information Specimen Source: Throat Specimen Site: Not otherwise specified Specimen Throat - Not otherwise specified Performing Organization Address City/[facility] Ph one Number [facility] DEPARTMENT OF [address] [place] [address] PATHOLOGY AND GENOMIC MEDICINE [address] * Respiratory pathogen panel (04/15/2019 8:46 AM STARTING SHEET TANK OPERATOR) [facility] Respiratory Negative for all pathogens [facility] pathogen panel tested: [facility] Negative for Adenovirus [facility] Negative for Coronavirus HKU1 Negative for Coronavirus NL63 Negative for Coronavirus 229E Negative for Coronavirus OC43 Negative for Human Metapneumovirus Negative for Rhinovirus/Enterovirus Negative for Influenza A Negative for Influenza A/H1 Negative for Influenza A/H3 Negative for Influenza A/H1-2009 Negative for Influenza B Negative for Parainfluenza Virus 1 Negative for Parainfluenza Virus 2 Negative for Parainfluenza Virus 3 Negative for Parainfluenza Virus 4 Negative for Respiratory Syncytial Virus Negative for Bordetella pertussis Negative for Chlamydophila pneumoniae Negative for Mycoplasma pneumoniae This real-time PCR assay detects the presence of nucleic acids (RNA or DNA) for the respiratory pathogens listed. A result of "Not-detected" does not exclude the possibility of the presence of one or more pathogens at concentrations less than the detectable limits of the assay. Comment: Specimen Information Specimen Source: Nasopharyngeal Specimen Site: Not otherwise specified Specimen Nasopharyngeal - Not otherwise specified Performing Organization Address City/[facility] Ph one Number [facility] [place] [place] [address] PATHOLOGY AND GENOMIC MEDICINE [address] * Influenza antigen test, reflex negative to RPP (04/15/2019 8:46 AM STARTING SHEET TANK OPERATOR) Influenza Negative for Influenza A/B [facility] antigen antigen. [facility] Comment: [place] Specimen [facility] Specimen Source: Nasopharyngeal Specimen Site: Not otherwise specified Specimen Nasopharyngeal - Not otherwise specified Performing Organization Address [facility] Ph one Number [facility] [address] [place] [address] PATHOLOGY AND GENOMIC MEDICINE [facility] [address] * Group A strep, rapid antigen (04/15/2019 8:46 AM STARTING SHEET TANK OPERATOR) Group A strep, Negative for Group A [facility] rapid antigen Streptococcus antigen. [facility] result Comment: [place] Specimen [facility] Specimen Source: Throat Specimen Site: Not otherwise specified Specimen Throat - Not otherwise specified Performing Organization Address [facility] Ph one Number [facility] [address] [place] [address] PATHOLOGY AND GENOMIC MEDICINE [facility] [address] * MRI Lumbar Spine Wo Contrast (02/04/2019 10:49 PM CDT) Specimen Narrative Performed At [facility] EXAMINATION: MRI LUMBAR SPINE WO CONT RAST CLINICAL HISTORY: subacute back pa in reports legs gave out COMPARISON: CT lumbar spine January 03, 2019 FINDINGS: There is no fracture demonstrated. L5-S1: There is no significant abnormal ity in the disc. There are mild to moderate hypertrophic changes in the fa cet joints without stenosis. L4-5: There is no significant abnormali ty in the disc. There are mild hypertrophic and degenerative changes t he facet joints without stenosis L3-4: There is minimal spondylosis and minimal loss of normal signal intensity in the disc. There is no stenosis. L2-3: There is moderate ventral spondyl osis and some loss of normal signal intensity in the disc. There is a minim al dorsal disc bulge. There is a minimal dorsal lateral annular fissure. There i s a possible minimal lateral foraminal disc protrusion on the left. There is however no foraminal stenosis. L1-2: There is moderate ventral spond ylosis. There is otherwise no significant abnormality in the disc. Imaging of the thoracolumbar junction d emonstrates no evidence of a conus lesion. IMPRESSION: Avsx-qh-nucmuhdy degenerative changes w ithout spinal canal or foraminal stenosis. There is no fracture demonstr ated. [id number] Procedure Note Interface, Radiology Results Incoming - 02/04/2019 11:00 PM CDT EXAMINATION: MRI LUMBAR SPINE WO CONTRAST CLINICAL HISTORY: subacute back pain reports legs gave out COMPARISON: CT lumbar spine January 03, 2019 FINDINGS: There is no fracture demonstrated. L5-S1: There is no significant abnormality in the disc. There are mild to moderate hypertrophic changes in the facet joints without stenosis. L4-5: There is no significant abnormality in the disc. There are mild hypertrophic and degenerative changes the facet joints without stenosis L3-4: There is minimal spondylosis and minimal loss of normal signal intensity in the disc. There is no stenosis. L2-3: There is moderate ventral spondylosis and some loss of normal signal intensity in the disc. There is a minimal dorsal disc bulge. There is a minimal dorsal lateral annular fissure. There is a possible minimal lateral foraminal disc protrusion on the left. There is however no foraminal stenosis. L1-2: There is moderate ventral spondylosis. There is otherwise no significant abnormality in the disc. Imaging of the thoracolumbar junction demonstrates no evidence of a conus lesion. IMPRESSION: Cygu-om-dsdwduww degenerative changes without spinal canal or foraminal stenosis. There is no fracture demonstrated. [id number] Performing Organization Address City/State/Zipcode Ph one Number [facility] [address] [place] [address] * CT Renal Stone Protocol (01/04/2019 10:53 PM CDT) Specimen Narrative Performed At Examination: [facility] Clinical History: Flank pain stone di sease suspected Comparison: None. Findings: CT scans are performed using radiation dose reduction techniques. Technical factors are evaluated and adjusted to e nsure appropriate moderation of exposure. Automated dose management technology is applied to adjust radiation exposure while achieving a diagnostic quality image. CT imaging wa s performed with iterative reconstruction techniques and/or automated exposure co ntrol to reduce radiation dose. CT scan of the abdomen and pelvis was p erformed without intravenous contrast. The liver, spleen, pancreas, gallbladde r, and adrenal glands are unremarkable. The kidneys are within normal limits wi thout hydronephrosis or urinary calculus. No bowel thickening or fat stranding is seen. No bowel dilatation is seen. Scattered colonic diverticuli are noted . No free air or fluid is seen. Urinary bladder is unremarkable. The visualized lung bases are clear. IMPRESSION: 1. Scattered colonic diverticuli withou t evidence of inflammation. 2. Otherwise no acute abnormality ident ified in the abdomen or pelvis. [id number] Procedure Note Interface, Radiology Results Incoming - 01/04/2019 11:02 PM CDT Examination: CT RENAL STONE PROTOCOL Clinical History: Flank pain stone disease suspected Comparison: None. Findings: CT scans are performed using radiation dose reduction techniques. Technical factors are evaluated and adjusted to ensure appropriate moderation of exposure. Automated dose management technology is applied to adjust radiation exposure while achieving a diagnostic quality image. CT imaging was performed with iterative reconstruction techniques and/or automated exposure control to reduce radiation dose. CT scan of the abdomen and pelvis was performed without intravenous contrast. The liver, spleen, pancreas, gallbladder, and adrenal glands are unremarkable. The kidneys are within normal limits without hydronephrosis or urinary calculus. No bowel thickening or fat stranding is seen. No bowel dilatation is seen. Scattered colonic diverticuli are noted. No free air or fluid is seen. Urinary bladder is unremarkable. The visualized lung bases are clear. IMPRESSION: 1. Scattered colonic diverticuli without evidence of inflammation. 2. Otherwise no acute abnormality identi fied in the abdomen or pelvis. [id number] Performing Organization Address City/[facility] Ph one Number [facility] [address] [place] [address] * Urinalysis screen and microscopy, with reflex to culture (01/04/2019 8:30 PM CDT) Specimen site Clean catch [facility] Color, UA Yellow [facility] Appearance, UA Clear [facility] Specific 1.020 1.001 - 1.035 [place] gravity, UA [facility] pH, UA 7.0 5.0 - 8.5 [facility] Protein, UA Negative Negative [facility] Glucose, UA Negative Negative [facility] Ketones, UA Negative Negative [facility] Bilirubin, UA Negative Negative [facility] Blood, UA Moderate (A) Negative [facility] Nitrite, UA Negative Negative [facility] Urobilinogen, Negative <2.0 [facility] Leukocyte Negative Negative [place] esterase, UA [facility] Epithelial Few /HPF [place] cells, UA [facility] WBC, UA None seen 0 - 5 /HPF [facility] RBC, UA 14 (H) 0 - 5 /HPF [facility] Bacteria, UA Trace None seen [facility] Yeast, UA None seen [facility] Yeast with None seen [place] pseudohyphae, [facility] Specimen Urine Performing Organization Address City/[facility] Ph one Number [facility] [address] [place] [address] PATHOLOGY AND GENOMIC MEDICINE [facility] [address] [place] [address] [address] * CT Lumbar Spine Wo Contrast (01/03/2019 12:04 PM CDT) Specimen Narrative Performed At EXAMINATION: CT LUMBAR SPINE WO CONTRAST [facility] T COMPARISON: None CLINICAL HISTORY: Back pain 6wks conservative tx persistent sx COMMENTS: Axial CT scan slices of the lumbar spine were obtained. Sagittal and coronal reconstructions were obtained. CT imaging was performed with iterative reconstruction technique and/or automated exposure control to reduce ra diation dose. FINDINGS: L5-S1 shows mild disc bulge and facet disease. L4-5 shows mild facet disease ligament flavum thickening. There is mild disc bulge. L3-4 shows minimal disc bulge and mild facet disease. L2-3 shows mild disc bulge. There is le ft lateral and foraminal mild broad-based disc protrusion. There is minimal narro wing left-sided foramen. There is mild facet disease. The lumbar spine shows no acute fractur e or subluxation. IMPRESSION: Mild degenerative change. The details can be further evaluated with MRI. [id number] Procedure Note Hm Interface, Radiology Results Incoming - 01/03/2019 12:14 PM CDT EXAMINATION: CT LUMBAR SPINE WO CONTRAST COMPARISON: None CLINICAL HISTORY: Back pain 6wks conservative tx persistent sx COMMENTS: Axial CT scan slices of the lumbar spine were obtained. Sagittal and coronal reconstructions were obtained. CT imaging was performed with iterative reconstruction technique and/or automated exposure control to reduce radiation dose. FINDINGS: L5-S1 shows mild disc bulge and facet disease. L4-5 shows mild facet disease ligament flavum thickening. There is mild disc bulge. L3-4 shows minimal disc bulge and mild facet disease. L2-3 shows mild disc bulge. There is left lateral and foraminal mild broad-based disc protrusion. There is minimal narrowing left-sided foramen. There is mild facet disease. The lumbar spine shows no acute fracture or subluxation. IMPRESSION: Mild degenerative change. The details can be further evaluated with MRI. 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
--- OUTSIDE RECORDS SUMMARY | 2019-12-06 09:21 | XMS REPORT | Continuity of Care Document ---
Author Author [facility] t Organization [facility] Address 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 Role Phone NO, PCP PCP Unavailable THEA MCKENZIE Attphys Unavailable Dameon JULES Attphys Unavailable Baljeet MA, Therese Downs Attphys Farhan MA, Eyjonny Attphys Erik MA, P Jesús Attphys Jasmina Mcnamara Attphys Franco MA, Osmany Cotton Attphys Maryanne MA, Narinder Mckoy Attphys Claudine MA, Nasra Attphys Andrew MA, Lela Attphys Frankie MA, Ashlee Gomez Attphys Selene Conteh Attphys Memo MedWill Kumar Attphys Unavailab Gilbert Khan Attphys Kenyon MA, Rubin Cruz Attphys [phone] Sandhya Jackman Attphys Nay Glynn Attphys Unavailable Marilu An Attphys Unavailable Ailin Morris Attphys Unavailable Brian Sepulveda Attphys Unavailable Rogelio MA, Chris Hoffman Attphys Plata MD, Aguila Reyes Attphys Adebayo MA, Adry Vizcaino Attphys Jason MA, Alex Gong Attphys Lani Leal Attphys Unavailable Alfredo, Will Merrill Attphys Unavailable Bethany Berumen Attphys Unavailable Idalmis Gurrola Attphys Unavailable Jennifer Alberts Attphys Unavailable Denisa Hays Attphys Unavailable Marlena Keys Attphys [phone] Alma Dutton Attphys Unavailable Louisa Wells Attphys Unavailable Mariama Hylton Attphys Nanette Houser Attphys Unavailable MACK WATKINS Admphys Unavailable Gilbert Mitchell Unavailable Selene Conteh Unavailable Payers Payer Name Policy Type Policy Number Effective Date Expiration Date S angie [employer] [employer]ANN[employer] [id number]/31/2019-10/30/[id number], [place] [address] xxxxxxx 2019 00:00:00 2020 23:59:59 [facility] PLANFINANCIAL ASSISTANCE [id number]/2019-10/30/[id number] [place] [address] xxxxxxx 2019 00:00:00 2020 23:59:59 [facility] [id number] 2018 00:00:00 2019 00:00 :00 [facility] Problems Condition Name Condition Details Condition Category Status Onset Date Resolution Date Last Treatment Date Treating Clinician Comments Source Back pain Back pain Disease Active 2019-05-04 00:00:[address] [facility] Chronic low back pain Condition Active 2019-02-14 00:00:0 0 2019-02-14 09:16:40 Gilbert Mitchell [facility] Screening for lipid disorder Condition Active 2018-09-27 00:00:00 2018-09-28 14[facility]08[facility] Depression / anxiety Condition Active 2018-09-27 00:00:00 2018-09-28 14:08:31 [facility] Elevated liver enzymes Condition Active 2018-09-27 00:00: 00 2018-09-28 14:08:31 [facility] Arm pain, left Condition Active 2018-09-27 00:00:00 [facility] 12-16-19 [facility]08[facility] failure Acute renal failure Disease Active 2018-08-14 00:00 :00 Pepito Mcnulty Wound of left ankle Problem Active [facility] History of Past Illness Condition Name Condition Details Condition Category Status Onset Date Resolution Date Last Treatment Date Treating Clinician Comments Source Lingular pneumonia Lingular pneumonia Disease Resolved 5 00:00:00 2019-04-18 00:00:00 2019-04-18 08:25:27 Pepito Mcnulty Allergies, Adverse Reactions, Alerts Allergy Name Allergy Type Status Severity Reaction(s) Onset Date Inacti ve Date Treating Clinician Comments Source Tramadol Allergy to substance Active Moderate 2019-11-14 00:00:00 [facility] Meperidine Allergy to substance Active Moderate 2019-11-14 00:00:0 0 [facility] Ketorolac Allergy to substance Active Moderate 2019-11-14 00:00:00 [facility] iodine DA Active 2019-09-24 00:00:00 [facility] tramadol DA Active 2019-09-24 00:00:00 [facility] ketorolac DA Active SV 2019-09-24 00:00:00 [facility] Alcohol Propensity to adverse reactions to drug Active Other (See Comments) 2019-04-15 00:00:00 Organ shut down [place] [facility] Isopropyl Alcohol Propensity to adverse reactions to drug Active Rash 2019-04-15 00:00:00 [place] [facility] Povidone-Iodine Propensity to adverse reactions to drug Active 2019-02-09 00:00:[address] [facility] Meperidine Propensity to adverse reactions to drug Active 2019-02-09 00:00:[address] [facility] Ethyl Alcohol Propensity to adverse reactions to drug Active 2019-02-09 00:00:[address] [facility] Ketorolac Propensity to adverse reactions to drug Active 2019-02-09 00:00:[address] [facility] Tramadol Propensity to adverse reactions to drug Active 2019-02-09 00:00:[address] [facility] TRAMADOL Drug allergy (disorder) Active 2018-09-27 00:00:00 [facility] TORADOL Drug allergy (disorder) Active 2018-09-27 00:00:00 [facility] LODINE Drug allergy (disorder) Active 2018-09-27 00:00:00 [facility] DEMEROL Drug allergy (disorder) Active 2018-09-27 00:00:00 [facility] COMPAZINE Drug allergy (disorder) Active 2018-09-27 00:00:0 0 [facility] Iodine Propensity to adverse reactions to drug Active Hives 2018-08-20 00:00:00 [facility] Prochlorperazine Propensity to adverse reactions to drug Active 2018-07-12 00:00:00 [facility] Meperidine Propensity to adverse reactions to drug Active 2018-07-12 00:00:00 [facility] Ketorolac Propensity to adverse reactions to drug Active 2018-07-12 00:00:00 [facility] Tramadol Propensity to adverse reactions to drug Active 2018-07-12 00:00:00 Pepito Lirianoist No Allergy Information Available DA Active U 2017-11-01 0 0:00:00 [facility] Family History Family Member Diagnosis Comments Start Date Stop Date Source Natural mother Alzheimer's disease [facility] Natural mother Fibromyalgia [facility] Social History Social Habit Start Date Stop Date Quantity Comments Source History SDOH Alcohol Std Drinks [facility] History SDOH Alcohol Binge [place] [facility] Sex Assigned At [facility] Cigarettes smoked current (pack per day) - Reported 00:00:00 2019-04-15 00:00:00 [facility] Alcohol intake 2019-04-15 00:00:00 2019-04-15 00:00:00 Current non-drinker of alcohol (finding) [facility] drug use, illicit 2019-02-14 08:06:28 2019-02-14 08:06:28 Never [facility] alcohol use 2019-02-14 08:06:28 2019-02-14 08:06:28 Never [facility] social history reviewed E&M 2019-02-14 08:06:28 2019-02-14 08:06 :28 reviewed today [facility] social history E&M 2019-02-14 08:06:28 2019-02-14 08:06:28 [place] e. Homeless. Employed part-time. Highest education level: 9th-12th grade. [facility] sexual orientation 2019-02-14 08:06:28 2019-02-14 08:06:28 Heterosexu al [facility] assessment of health literacy (NCQA [facility] 2014 Standard s, 3C10) 2019-02-14 08:06:28 2019-02-14 08:06:28 Adequate [facility] passive cigarette smoke exposure 2019-02-14 08:06:28 2019-02-14 08:06 :28 No [facility] time of call 2019-02-12 12:44:00 2019-02-12 12:44:00 02/12/2019 12:44 PM [facility] is there any chance that you could be ? 2018-10-30 0 8:39:36 2018-10-30 08:39:36 No 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 situation, assessment 2018-09-27 09:17:30 2018-09-27 09:17:30 pt lives i a homeless retirement here in [facility] Alcohol Comment 2018-08-14 00:00:00 2018-08-14 00:00:00 stoipped alco hol use Pepito Mcnulty History of tobacco use 2011-07-16 00:00:00 2018-08-13 00:00:00 Curren t smoker Pepito Mcnulty History SDOH Alcohol Frequency 2018-07-12 00:00:00 2018-07-12 00:00:0 0 1 Pepito Mcnulty Smoking Status Start Date Stop Date Source Former smoker 2019-04-15 00:00:00 2019-04-15 00:00:00 Pepito Mcnulty Medications Ordered Medication Name Filled Medication Name Start Date Stop Da te Current Medication? Ordering Clinician Indication Dosage Frequency Signature (SIG) Comments Components Source gabapentin (NEURONTIN) 800 mg tablet 2019-07-19 00:00:00 Yes Radiculopathy Start with 1 pills o nce day for 1-2 days and increase to 1 pills 2 times x 1-2 days and then if no side effects increase to 1 pills 3 times a day.. [facility] acetaminophen-codeine (TYLENOL WITH CODEINE #3) 300-30 mg pe r tablet 2019-06-03 00:00:00 2019-06-08 23:59:00 No acute pain 1{tbl} Q6H Take 1 tablet by mouth every 6 (six) hours as needed for severe pain for up to 5 days .acute pain. Pepito Mcnulty gabapentin (NEURONTIN) 800 mg tablet 2019-05-04 00:00: 00 2019-07-19 00:00:00 No Radiculopathy 800mg Take 1 tablet by mouth [address] [facility] gabapentin (NEURONTIN) 600 mg tablet 2019-04-18 14:50:09 Yes 600mg Q.[id number] Take 600 mg by mouth 3 (three) times a day. Pepito Mcnulty albuterol (PROAIR HFA) 90 mcg/actuation inhaler 2019-04-18 00:00:00 2019-05-18 23:59:00 No 2{puff} Q6H Inhale 2 puffs every 6 (six) hours as needed for wheezing for up to 30 days. Pepito shaw levoFLOXacin (LEVAQUIN) 750 MG tablet 2019-04-18 00:00 :00 2019-04-25 23:59:00 No 750mg QD Take 1 tablet (750 mg total) by mouth da govind for 7 days. Pepito Mcnulty methylPREDNISolone (MEDROL, JOHNATHAN,) 4 mg tablet 20 30-04-07 00:00:00 2019-04-23 23:59:00 No follow package directions Pepito Mcnulty gabapentin (NEURONTIN) 300 mg capsule 2019-04-16 16:37 :06 2019-04-15 00:00:00 No 300mg Q.[id number] Take 300 mg b y mouth 3 (three) times a day. Pepito Mcnulty cyclobenzaprine (FLEXERIL) 10 mg tablet 00:00:00 2019-04-04 23:59:00 No 10mg Q.5D Take 1 tablet (10 mg total) by mouth 2 (two) times a day as needed for muscle spasms for up to 30 days. Pepito Mcnulty predniSONE (DELTASONE) 20 mg tablet 2019-03-05 00:00:0 0 2019-03-15 23:59:00 No 40mg QD Take 2 tablets (40 mg total) by mouth da govind for 10 days. Pepito Mcnulty (GABAPENTIN) 600 MG TABS 2019-02-14 00:00:00 Yes Selene Wero 1{Tablet} 3xD 1 tablet three times a day [facility] TYLENOL WITH CODEINE #3 (ACETAMINOPHEN-CODEINE) 300-30 MG TA BS 2019-02-14 00:00:00 Yes Gilbert Mitchell 1{Tablet} 4xD take 1 tablet every 6 hours as needed [facility] acetaminophen-codeine (TYLENOL/CODEINE #3) 300-30 mg per tab let 2019-02-09 00:00:00 2019-07-19 00:00:00 No Chronic low back pain with right-sided sciatica, unspecified back pain laterality 1{tbl} Take 1 tablet by mouth every 6 hours as needed for Pain. Alvaro bates acetaminophen-codeine (TYLENOL WITH CODEINE #3) 300-30 mg pe r tablet 2019-02-04 00:00:00 2019-02-08 23:59:00 No acute pain 1{tbl} Q6H Take 1-2 tablets by mouth every 6 (six) hours as needed for moderate pain for up to 4 days .Acute Pain. Pepito Mcnulty acetaminophen-codeine (TYLENOL WITH CODEINE #3) 300-30 mg pe r tablet 2019-01-04 00:00:00 2019-01-09 23:59:00 No acute pain 1{tbl} Q6H Take 1 tablet by mouth every 6 (six) hours as needed for severe pain for up to 5 days .Acute Pain. Pepito Mcnulty acetaminophen-codeine (TYLENOL WITH CODEINE #3) 300-30 mg pe r tablet 2019-01-04 00:00:00 2019-01-04 00:00:00 No acute pain 1{tbl} Q6H Take 1 tablet by mouth every 6 (six) hours as needed for severe pain for up to 5 days .Acute Pain. Pepito Mcnulty acetaminophen-codeine (TYLENOL WITH CODEINE #3) 300-30 mg pe r tablet 2019-01-04 00:00:00 2019-01-04 00:00:00 No acute pain 1{tbl} Q6H Take 1 tablet by mouth every 6 (six) hours as needed for severe pain for up to 5 days .Acute Pain. Pepito Mcnulty cyclobenzaprine (FLEXERIL) 10 mg tablet 00:00:00 2019-02-02 23:59:00 No 10mg Q.5D Take 1 tablet (10 mg total) by mouth 2 (two) times a day as needed for muscle spasms for up to 30 days. Pepito Mcnulty methylPREDNISolone (MEDROL DOSEPAK) 4 mg tablet 2019-01-03 00:00:00 2019-01-08 23:59:00 No follow package directions Pepito Mcnulty cyclobenzaprine (FLEXERIL) 10 mg tablet 00:00:00 2018-12-17 23:59:00 No 10mg Q.5D Take 1 tablet (10 mg total) by mouth 2 (two) times a day as needed for muscle spasms for up to 30 days. Pepito Mcnulty MOBIC (MELOXICAM) 15 MG TABS 2018-10-30 00:00:00 Yes Selene Wero 1{Tablet} 1xD 1 by mouth daily [facility] D[employer] WELLBUTRIN XL (BUPROPION HCL) 150 MG [id number] 2018-09-27 00:00:00 Yes Selene Wero 1{Tablet} 1xD 1 tab By Mouth Every Day [facility] (GABAPENTIN) 300 MG CAPS 2018-09-27 00:00:00 Yes Selene Wero 1{Capsule} 3xD 1 by mouth three times a day as needed [facility] TYLENOL WITH CODEINE #3 (ACETAMINOPHEN-CODEINE) 300-30 MG TA BS 2018-09-27 00:00:00 Yes Selene Wero 1 by mouth every 6-8 ho urs as needed [facility] Immunizations Ordered Immunization Name Filled Immunization Name Date Status Comments Source engerix-b im 20 mcg/ml [id number] 2018-11-02 14:04: 00 Completed [facility] Vital Signs Vital Name Observation Time Observation Value Comments Source Weight 2019-11-14 19:36:00 130 [lb_av] [facility] BMI (Body Mass Index) 2019-11-14 19:36:00 25.4 kg/m2 [facility] Weight 2019-09-07 18:14:00 130 [lb_av] [facility] BMI (Body Mass Index) 2019-09-07 18:14:00 25.4 kg/m2 [facility] Systolic blood pressure 2019-06-03 16:28:10 100 mm[Hg] Pepito Mcnulty Diastolic blood pressure 2019-06-03 16:28:10 71 mm[Hg] Pepito Mcnulty Heart rate 2019-06-03 16:28:10 92 /min [place] [facility] Respiratory rate 2019-06-03 16:28:10 16 /min Joaquin Mcnulty Oxygen saturation in Arterial blood by Pulse oximetry 06-03 16:28:10 96 /min [facility] Body temperature 2019-06-03 15:13:48 36.61 Ashley Joaquin Mcnulty Body height 2019-06-03 15:12:00 157.5 cm Pepito Mcnulty Body weight 2019-06-03 15:12:00 58.968 kg Pepito Mcnulty BMI 2019-06-03 15:12:00 23.78 kg/m2 Pepito Mcnulty Systolic blood pressure 2019-05-04 11:40:00 105 mm[Hg] [facility] Diastolic blood pressure 2019-05-04 11:40:00 73 mm[Hg] [facility] Heart rate 2019-05-04 11:40:00 108 /min [facility] Body temperature 2019-05-04 11:40:00 37 Ashley Suni is [facility] Respiratory rate 2019-05-04 11:40:00 18 /min Suni is [facility] Body height 2019-05-04 11:40:00 157.5 cm [facility] Body weight 2019-05-04 11:40:00 60.782 kg [facility] BMI 2019-05-04 11:40:00 24.51 kg/m2 [facility] Oxygen saturation in Arterial blood by Pulse oximetry 2018-04 12:08:00 99 /min [facility] Procedures Procedure Date / Time Performed Performing Clinician [facility] e SPLINT APPLICATION 2019-06-03 16:18:40 Karl Dutton XR ANKLE 3+ VW LEFT 2019-06-03 15:37:57 Ariana Real XR FOOT 3+ VW LEFT 2019-06-03 15:37:14 Karl Dutton MRI LUMBAR SPINE W/O CONTRAST 2019-06-01 10:26:40 Danitza N[address] [facility] LACTIC ACID LEVEL 2019-04-16 03:36:00 Ernesto Cordero LACTIC ACID LEVEL, SEPSIS - NOW AND REPEAT 2X EVERY 3 HOURS 2019-04-15 23:56:00 Valentina Abbott LACTIC ACID LEVEL, SEPSIS - NOW AND REPEAT 2X EVERY 3 HOURS 2019-04-15 20:51:00 Valentina Abbott LACTIC ACID LEVEL, SEPSIS - NOW AND REPEAT 2X EVERY 3 HOURS 2019-04-15 17:44:00 Valentina Abbott CONSULT TO SEPSIS RESPONSE TEAM 2019-04-15 16:32:18 Lucia Encarnacion LACTIC ACID LEVEL 2019-04-15 15:21:00 Zach Smith CREATINE KINASE, TOTAL (CPK) 2019-04-15 15:21:00 Tracy Smith BLOOD CULTURE, AEROBIC & ANAEROBIC 2019-04-15 10:47:00 EsperanzaElizabethlinden Mcnulty BLOOD CULTURE, AEROBIC & ANAEROBIC 2019-04-15 10:23:00 EsperanzaElizabethlinden Mcnulty XR CHEST 2 VW 2019-04-15 09:28:19 MataElizabethlinden Mcnulty HC COMPLETE BLD COUNT W/AUTO DIFF 2019-04-15 09:03:00 EsperanzaLeonardlinden Mcnulty COMPREHENSIVE METABOLIC PANEL 2019-04-15 09:03:00 Esperanza Elizabethnarayan Briceñolinden Mcnulty ESTIMATED GFR 2019-04-15 09:03:00 EsperanzaElizabethlinden Mcnulty STREP SCREEN CULTURE 2019-04-15 09:00:00 Yury Gamez INFLUENZA ANTIGEN TEST, REFLEX NEGATIVE TO RPP 2019-04-15 08 :46:00 Esperanza Elizabeth Mcnulty GROUP A STREP, RAPID ANTIGEN 2019-04-15 08:46:00 Michelle Matany Katelyn Mcnulty RESPIRATORY PATHOGEN PANEL 2019-04-15 08:46:00 Elizabeth Mata MRI LUMBAR SPINE WO CONTRAST 2019-02-04 22:49:52 Rico Plata HC COMPLETE BLD COUNT W/AUTO DIFF 2019-02-04 21:55:00 Tameka Plata COMPREHENSIVE METABOLIC PANEL 2019-02-04 21:55:00 Shin Plata ESTIMATED GFR 2019-02-04 21:55:[address] RENAL STONE PROTOCOL 2019-01-04 22:53:11 Karl Dutton URINALYSIS SCREEN AND MICROSCOPY, WITH REFLEX TO CULTURE 201 12-18-25 20:30:[address] LUMBAR SPINE WO CONTRAST 2019-01-03 12:04:25 Ayanna Lemon [facility] Brief Follow Up 2018-11-27 12:59:34 Bethany Berumen [facility] Psychotherapy 30 (16-37*) min - [id number] (with patient an d/or family member) 2018-11-27 12:59:34 Bethany Berumen [facility] First Vx - Ix admin via ID IM or jet injects without c ounseling by physician 2018-11-02 14:03:08 Wero Selene [facility] Engerix-B Injection Suspension 20 MCG/ML 2018-11-02 14:03:08 Elliott Selene jackson [facility] Vaccines Ordered - Print Consent/Declination Forms 2018-10-10 10:26:59 Wero Selene [facility] IBH Assessment - Monotyper 2018-10-18 14:03:02 Chase Berumen [facility] Diagnostic evaluation (no medical) - [id number] 2018-10-18 14:03:02 Kanu goodson [facility] Plan of Care Planned Activity Planned Date Details Comments Source [facility] Scheduled Test 2020-01-10 00:00:00 IMM Influenza Seas onal Jan to June (>/= 19 yrs) [code = IMM Influenza Seasonal Jan to June (>/= 19 yrs)] [facility] Scheduled Test 2020-01-10 00:00:00 INFLUENZA VACCINE [code = INFLUENZA VACCINE] [facility] Scheduled Test 2018 00:00:00 Screening for luis gnant neoplasm of colon (procedure) [code = 316835227] [facility] Scheduled Test 2018 00:00:00 BREAST CANCER SCRE ENING [code = BREAST CANCER SCREENING] [facility] Scheduled Test 2018 00:00:00 COLONOSCOPY SCREEN ING [code = COLONOSCOPY SCREENING] [facility] Scheduled Test 2018 00:00:00 SHINGLES VACCINES (#1) [code = SHINGLES VACCINES (#1)] [facility] Scheduled Test 2008 00:00:00 Breast Cancer Scrn (Yearly) [code = Breast Cancer Scrn (Yearly)] [facility] Scheduled Test 1989 00:00:00 Screening for luis gnant neoplasm of cervix (procedure) [code = 502192709] [facility] Scheduled Test 1989 00:00:00 Screening for luis gnant neoplasm of cervix (procedure) [code = 705377231] [facility] Wound Care (General) [facility] Encounters Start Date/Time End Date/Time Encounter Type Admission Type Attendi Clinicians Care Facility Care Department Encounter ID Source 2019-11-14 19:32:00 2019-11-14 21:10:00 Departed Emergency Room THEA MCKENZIE [facility] [id number] [facility] 2019-09-07 18:00:00 2019-09-08 09:11:00 Departed Emergency Room MARIE LUKE [facility] [id number] [facility] 2019-07-19 07:15:16 2019-07-19 07:15:16 Outpatient [facility] [id number] [facility] 2019-07-03 00:00:00 2019-07-03 00:00:00 Outpatient [facility] [id number] [facility] 2019-06-21 00:00:00 2019-06-21 00:00:00 Outpatient [facility] [id number] [facility] 2019-06-19 00:00:00 2019-06-19 00:00:00 Outpatient [facility] [id number] [facility] 2019-06-08 00:00:00 2019-06-08 00:00:00 Outpatient [facility] [id number] [facility] 2019-06-03 00:00:00 2019-06-03 00:00:00 Emergency PAUL REAL [facility] [id number] [facility] 2019-06-01 08:56:05 2019-06-01 08:56:05 Outpatient [facility] [id number] [facility] 2019-05-04 11:39:40 2019-05-04 11:39:40 Outpatient [facility] [id number] [facility] 2019-04-15 00:00:00 2019-04-18 00:00:00 Inpatient ARVIND ESCUDERO [facility] [id number] [facility] 2019-03-19 00:00:00 2019-03-19 00:00:00 Office Visit Selene Francis Jaquelin S [facility] Encounter/[id number] [facility] 2019-03-16 00:00:00 2019-03-16 00:00:00 Office Visit Gilbert Recinos Jaquelin S [facility] Encounter/[id number] [facility] 2019-03-05 00:00:00 2019-03-05 00:00:00 Emergency VALENTE SPARKS [id number] [facility] 2019-03-05 00:00:00 2019-03-05 00:00:00 [facility] Encounter/[id number] [facility] 2019-02-14 00:00:00 2019-02-14 00:00:00 Office Visit Gilbert Mitchell [facility] Encounter/[id number] [facility] 2019-02-14 00:00:00 2019-02-14 00:00:00 [facility]/[id number] [facility] 2019-02-14 00:00:00 2019-02-14 00:00:00 Office Visit Gilbert Recinos Kiera Perez, Maria Castillo Cruz, Jeanette [facility] Encounter/[id number] [facility] 2019-02-12 00:00:00 2019-02-12 00:00:00 Office Visit Selene Francis Lindsey Martinez, Luis E [facility] Encounter/[id number] [facility] 2019-02-09 10:17:54 2019-02-09 10:17:54 Emergency [facility] [id number] [facility] 2019-02-04 00:00:00 2019-02-04 00:00:00 Emergency TAMEKA PLATA [facility] [id number] [facility] 2019-02-04 00:00:00 2019-02-04 00:00:00 Office Visit Gilbert Mitchell [facility] Encounter/[id number] [facility] 2019-02-04 00:00:00 2019-02-04 00:00:00 Office [facility] Encounter/[id number] [facility] 2019-01-04 00:00:00 2019-01-04 00:00:00 Office Visit Selene Conteh [facility] Encounter/[id number] [facility] 2019-01-03 00:00:00 2019-01-03 00:00:00 Office Visit Selene Cnoteh [id number] [facility] 2018-11-29 00:00:00 2018-11-29 00:00:00 Office Visit Selene Conteh [facility] Encounter/[id number] [facility] 2018-11-29 00:00:00 2018-11-29 00:00:00 Office Visit Selene Francis Rebeca [facility] [facility] Practice Encounter/[id number] [facility] 2018-11-28 00:00:00 2018-11-28 00:00:00 Office Visit Ailin Morris [facility] Encounter/[id number] [facility] 2018-11-17 00:00:00 2018-11-17 00:00:00 Office Visit Selene Conteh [facility] Encounter/[id number] [facility] 2018-11-02 00:00:00 2018-11-02 00:00:00 Office Visit Dameon Fuentes [facility] Encounter/[id number] [facility] 2018-10-30 00:00:00 2018-10-30 00:00:00 Office Visit Bethany Berumen [facility] Encounter/[id number] [facility] 2018-10-30 00:00:00 2018-10-30 00:00:00 [facility][id number] [facility] 2018-10-30 00:00:00 2018-10-30 00:00:00 [facility] En[facility]/[id number] [facility] 2018-10-30 00:00:00 2018-10-30 00:00:00 Office Visit Selene Francis Jacqueline Gonzales, Christina [facility] Encounter/[id number] [facility] 2018-10-10 00:00:00 2018-10-10 00:00:00 Office Visit Ata Bethany [facility] Encounter/[id number] [facility] 2018-10-10 00:00:00 2018-10-10 00:00:00 [facility] Encounter/[id number] [facility] 2018-10-10 00:00:00 2018-10-10 00:00:00 [facility] Encounter/[id number] [facility] 2018-09-27 00:00:00 2018-09-27 00:00:00 [facility] Encounter/[id number] [facility] 2018-09-27 00:00:00 2018-09-27 00:00:00 [facility] Encounter/[id number] [facility] 2018-09-27 00:00:00 2018-09-27 00:00:00 Office Visit Selene Francis Sandra Garcia, Alma Wells, Lani Melgar [facility] Encounter/[id number] [facility] 2018-08-29 00:00:00 2018-08-29 00:00:00 Office Visit Ailin Morris [facility] Encounter/[id number] [facility] 2018-08-28 00:00:00 2018-08-28 00:00:00 Office Visit Mariama Riggins Lindsey Foster, [place] [facility] Encounter/[id number] [facility] 2018-08-23 00:00:00 2018-08-23 00:00:00 Office Visit Selene Conteh [facility] Encounter/[id number] [facility] 2018-08-21 00:00:00 2018-08-21 00:00:00 Office Visit Selene Conteh [facility] Encounter/[id number] [facility] Results Test Description Test Time Test Comments Results Result Comments Source ANKLE 3+ VIEWS LEFT 2019-11-14 20:34:00 [place] [address] Patient Name: DORIAN DUBON MR #: [id number] : 1970 Age/Sex: 48/F Req #: [id number] Adm Physician: Ordered by: THEA MCKENZIE DO Report #: [id number] Location: ER Room/Bed: Procedure: [id number] DX/ANKLE 3+ VIEWS LEFT Exam Date: 11/14/19 [...] on 11/14/192034 COPY TO: THEA MCKENZIE DO TROPONIN-I 2019-10-27 02:29:00 Test Item TROPONIN-I (test code = TROPI) <0.015 ng/mL 0-0.045 N - XR CHEST 1 [id number] 23:58:00 FAX: Shireen Cleveland DO [place]: B St: REG Name: DORIAN KNAPP [facility] : [birth year] Age/S: 48/F [address] [facility] Unit #: [id number] Loc: [place] [address] Phys: Shireen Cleveland DO Acct: [id number] Dis Date: Status: REG ER PHONE #: [phone] Exam Date: 10/26/2019 6581 FAX #: [phone] Reason: CHEST PAIN EXAMS: CPT CODE: [id number] XR CHEST 1 V 47895 Location: H 3 CHEST X- RAY: PA frontal projection, one view, 10/26/19 CLINICAL HISTORY: Chest pain, emergency room presentation COMPARISON EXAMS: 10/10/19 chest x-ray exam FINDINGS: Heart, lungs, and media stinal structures are within normal limits. No evolving process or pleura l based finding. No active CHF or pneumonia. IMPRESSION: No acute finding at 9460 Reported and signed by: Ludmila Mccormick M.D. CC: Shireen Cleveland DO Technologist: RT JAMES(R) Trnscrd Date/Time/By: 10/26/2019 (2037) : By: [email or web address] Orig Print D/T: S: 10/27/2019 (0002) PAGE 1 Signed Report HEPATIC FUNCTION [id number] 23:53:00* Test Item Value Reference Range Interpretation Comments TOTAL PROTEIN (test code = PROT) 7.5 gram/dL 6.4-8.2 N ALBUMIN (test code = ALB) 3.7 g/dL 3.4-5.0 N GLOBULIN (test code = GLOB) 3.8 gram/dL 2.7-4.2 N ALBUMIN/GLOBULIN RATIO (test code = A/G) 1.0 0.75-1.50 N BILIRUBIN TOTAL (test code = BILT) 0.90 mg/dL 0.0-1.0 N BILIRUBIN DIRECT (test code = BILD) 0.24 mg/dL 0.0-0.20 H SGOT/AST (test code = AST) 30 IUnit/L 15-37 N SGPT/ALT (test code = ALT) 35 IUnit/L 12-78 N ALKALINE PHOSPHATASE TOTAL (test code = ALKP) 113 IUnit/L 45-117 N Note change in reference range due to change in reagent. [id number] 23:53:00* Test Item Value Reference Range Interpretation Comments LIPASE (test code = LIP) 94 U/L 73.0-393.0 N [id number] 23:53:00* Test Item Value Reference Range Interpretation Comments TROPONIN-I (test code = TROPI) <0.015 ng/mL 0-0.045 N BASIC METABOLIC [id number] 23:49:00* Test Item Value Reference Range Interpretation Comments SODIUM (test code = NA) 145 mmol/L 136-145 N POTASSIUM (test code = K) 3.4 mmol/L 3.5-5.1 L CHLORIDE (test code = CL) 108.0 mmol/L 98-107 H CARBON DIOXIDE (test code = CO2) 28.0 mmol/L 21-32 N ANION GAP (test code = GAP) 12.4 10-20 N GLUCOSE (test code = GLU) 126 mg/dL 74-106 H BLOOD UREA NITROGEN (test code = BUN) 8 mg/dL 7-18 N GLOMERULAR FILTRATION RATE (test code = GFR) > 60 mL/min >=60 Estimated GFR by using Modified MDRD formula.Chronic kidney disease is defined as either kidney damageor GFR <60 mL/min/1.73 m2 for >3 months. CREATININE (test code = CREAT) 0.70 mg/dL 0.55-1.02 N Note change in reference range due to change in reagent. BUN/CREATININE RATIO (test code = BUN/CREA) 10.9 10-20 N CALCIUM (test code = CA) 8.5 mg/dL 8.5-10.1 N HCG SERUM [id number] 23:49:00* Test Item Value Reference Range Interpretation Comments HCG SERUM QUAL (test code = HCGQL) NEGATIVE NEGATIVE This HCGQL test is NOT applicable for MALE patients.Check with nurse about probable order error.If Tumor Marker Test needed, nurse should order test "HCGTU"(Test #550.39912) BASIC METABOLIC [id number] 23:41:00* Test Item Value Reference Range Interpretation Comments SODIUM (test code = NA) 145 mmol/L 136-145 N POTASSIUM (test code = K) 3.4 mmol/L 3.5-5.1 L CHLORIDE (test code = CL) 108.0 mmol/L 98-107 H CARBON DIOXIDE (test code = CO2) mmol/L 21-32 ANION GAP (test code = GAP) 10-20 GLUCOSE (test code = GLU) mg/dL 74-106 BLOOD UREA NITROGEN (test code = BUN) mg/dL 7-18 GLOMERULAR FILTRATION RATE (test code = GFR) mL/min >=60 CREATININE (test code = CREAT) mg/dL 0.55-1.02 BUN/CREATININE RATIO (test code = BUN/CREA) 10-20 CALCIUM (test code = CA) mg/dL 8.5-10.1 HCG SERUM [id number] 23:41:00* Test Item Value Reference Range Interpretation Comments HCG SERUM QUAL (test code = HCGQL) NEGATIVE NEGATIVE This HCGQL test is NOT applicable for MALE patients.Check with nurse about probable order error.If Tumor Marker Test needed, nurse should order test "HCGTU"(Test #550.98575) BASIC METABOLIC [id number] 23:39:00* Test Item Value Reference Range Interpretation Comments SODIUM (test code = NA) mmol/L 136-145 POTASSIUM (test code = K) mmol/L 3.5-5.1 CHLORIDE (test code = CL) mmol/L 98-107 CARBON DIOXIDE (test code = CO2) mmol/L 21-32 ANION GAP (test code = GAP) 10-20 GLUCOSE (test code = GLU) mg/dL 74-106 BLOOD UREA NITROGEN (test code = BUN) mg/dL 7-18 GLOMERULAR FILTRATION RATE (test code = GFR) mL/min >=60 CREATININE (test code = CREAT) mg/dL 0.55-1.02 BUN/CREATININE RATIO (test code = BUN/CREA) 10-20 CALCIUM (test code = CA) mg/dL 8.5-10.1 HCG SERUM [id number] 23:39:00* Test Item Value Reference Range Interpretation Comments HCG SERUM QUAL (test code = HCGQL) NEGATIVE NEGATIVE This HCGQL test is NOT applicable for MALE patients.Check with nurse about probable order error.If Tumor Marker Test needed, nurse should order test "HCGTU"(Test #550.07635) CBC W/AUTO [id number] 23:26:00* Test Item Value Reference Range Interpretation Comments WHITE BLOOD CELL (test code = WBC) 7.6 K/mm3 4.5-12.5 N RED BLOOD CELL (test code = RBC) 4.90 mill/mm3 3.7-5.2 N HEMOGLOBIN (test code = HGB) 16.2 gram/dL 11.5-15.5 H HEMATOCRIT (test code = HCT) 46.1 % 36.0-46.0 H MEAN CELL VOLUME (test code = MCV) 94.1 fL 80-98 N MEAN CELL HGB (test code = MCH) 33.1 picogram 27.0-33.0 H MEAN CELL HGB CONCETRATION (test code = MCHC) 35.1 gram/dL 33.0-36. 0 N RED CELL DISTRIBUTION WIDTH (test code = RDW) 14.4 % 11.6-16. 2 N RED CELL DISTRIBUTION WIDTH SD (test code = RDW-SD) 49.1 fL 37 .0-51.0 N PLATELET COUNT (test code = PLT) 293 K/mm3 150-450 N MEAN PLATELET VOLUME (test code = MPV) 9.6 fL 6.7-11.0 N NEUTROPHIL % (test code = NT%) 38.4 % 39.0-69.0 L IMMATURE GRANULOCYTE % (test code = IG%) 0.3 % 0.0-5.0 N LYMPHOCYTE % (test code = LY%) 52.8 % 25.0-55.0 N MONOCYTE % (test code = MO%) 7.3 % 0.0-10.0 N EOSINOPHIL % (test code = EO%) 0.8 % 0.0-5.0 N BASOPHIL % (test code = BA%) 0.4 % 0.0-1.0 N NUCLEATED RBC % (test code = NRBC%) 0.0 % 0-0 N NEUTROPHIL # (test code = NT#) 2.92 K/mm3 1.8-7.7 N IMMATURE GRANULOCYTE # (test code = IG#) 0.02 x10 3/uL 0-0.03 N LYMPHOCYTE # (test code = LY#) 4.00 K/mm3 1.0-5.0 N MONOCYTE # (test code = MO#) 0.55 K/mm3 0-0.8 N EOSINOPHIL # (test code = EO#) 0.06 K/mm3 0.0-0.5 N BASOPHIL # (test code = BA#) 0.03 K/mm3 0.0-0.2 N NUCLEATED RBC # (test code = NRBC#) 0.00 K/mm3 0.0-0.1 N MANUAL DIFF REQUIRED (test code = MDIFF) NO - CT HEAD/BRAIN W/O [id number] 23:08:00 Name: DORIAN DUBON [facility] : 1970 Age/S: 48 / F [address] [facility] Unit #: [id number] Loc: [place] [address] Phys: Shireen Cleveland DO Acct: [id number] Dis Date: Status: REG ER PHONE #: [phone] Exam Date: 10/26/2019 1422 FAX #: [phone] Reason: Headache EXAMS: CPT CODE: [id number] CT HEAD/BRAIN W/O CONT 43512 EXAM: - CT HEAD/BRAIN W/O CONT HISTORY: AMS. TECHNIQUE: Axial tomograms through the brain were obtained without intravenous contrast. This exam was performed according to our departmental dose-optimization program, which includes automated exposure control, adjustment of the mA and/or kV according to patient size and/or use of iterative reconstruction technique. COMPARISON: October 10, 2019. FINDINGS: There is no intracranial hemorrhage, mass, or mass effect. The ventricular system and sulci are age-appropriate. There is no significant change compared to previous exam. The osseous structures and orbits, show no sig nificant abnormalities. The visualized sinuses are relatively clear. The soft tissues are unremarkable. IMPRESSION: No evidence of acute intracranial hemorrhage. No interval change. at 2308 Reported and signed by: Jordon Jacobson MD CC: Shireen Cleveland DO Technologist:YUKO HERRON, RT; Jemal Xiao CTDI: DLP: Trnscb Date/Time: 10/26/2019 (2307) t.[email or web address] Orig Print D/T: S: 10/26/2019 (7602) PAGE 1 Signed Report DRUGS OF ABUSE SCREEN [id number] 01:50:00* Test Item Value Reference Range Interpretation Comments UA PH DIPSTICK (test code = DOUG) 6.0 5.0-8.0 URN COCAINE (test code = COCAURN) NEGATIVE <300 ng/mL URN CANNABINOIDS (test code = CANNABURN) POSITIVE <50 ng/mL A This test provides only a preliminary test result. A morespecific alternate chemical method must be used in order toobtain a confirmed analytical result. Gas chromatography/mass spectrometry (GC/MS) is thepreferred confirmatory method. Other chemical confirmationmethods are available. Clinical consideration and professional judgment should be applied to any drug of abusetest result, particularly when preliminary positive resultsare used.Unconfirmed screening results must not be used fornon-medical purposes (e.g., employment testing, legaltesting). URN AMPHETAMINE (test code = AMPHETURN) NEGATIVE <1000 ng/mL URN BARBITURATE (test code = BARBITURN) NEGATIVE <200 ng/mL URN BENZODIAZEPINE (test code = BENZOURN) NEGATIVE <200 ng/mL URN OPIATES (test code = OPIATURN) NEGATIVE <300 ng/mL URN PHENCYCLIDINE (PCP) (test code = PHENCURN) NEGATIVE <25 ng/ mL URN METHADONE (test code = METHAURN) NEGATIVE <300 ng/mL DRUGS OF ABUSE SCREEN [id number] 00:16:00* Test Item Value Reference Range Interpretation Comments UA PH DIPSTICK (test code = DOUG) 5.0-8.0 URN COCAINE (test code = COCAURN) NEGATIVE <300 ng/mL URN CANNABINOIDS (test code = CANNABURN) POSITIVE <50 ng/mL A This test provides only a preliminary test result. A morespecific alternate chemical method must be used in order toobtain a confirmed analytical result. Gas chromatography/mass spectrometry (GC/MS) is thepreferred confirmatory method. Other chemical confirmationmethods are available. Clinical consideration and professional judgment should be applied to any drug of abusetest result, particularly when preliminary positive resultsare used.Unconfirmed screening results must not be used fornon-medical purposes (e.g., employment testing, legaltesting). URN AMPHETAMINE (test code = AMPHETURN) NEGATIVE <1000 ng/mL URN BARBITURATE (test code = BARBITURN) NEGATIVE <200 ng/mL URN BENZODIAZEPINE (test code = BENZOURN) NEGATIVE <200 ng/mL URN OPIATES (test code = OPIATURN) NEGATIVE <300 ng/mL URN PHENCYCLIDINE (PCP) (test code = PHENCURN) NEGATIVE <25 ng/ mL URN METHADONE (test code = METHAURN) NEGATIVE <300 ng/mL - CTA [id number] 22:12:00 Name: DORIAN DUBON [facility] : 1970 Age/S: 48 / F [address] [facility] Unit #: [id number] Loc: [place] [address] Phys: Shireen Cleveland DO Acct: [id number] Dis Date: Status: REG ER PHONE #: [phone] Exam Date: 10/10/20192129 FAX #: [phone] Reason: HEADACHE EXAMS: CPT CODE: [id number] CTA HEAD 81375 HISTORY: HEADACHE TECHNIQUE: Cerebral CT angiography was acquired in the axial plane after bolus IV administration of iodinated contrast. . Coronal and sagittal reformats were obtained. Automated exposure control for dose reduction. COMPARISON: None FINDINGS: Bilateral distal cervical ICAs are patent. Atherosclerotic vascular calcification and luminal irregularity of the bilateral cavernous ICA segments. Bilateral petrous and supraclinoid ICA segments are patent. Normal enhancement of the bilateral ophthalmic arteries. Bilateral A1 and distal SANTA segments are patent. Anterior communicating artery is present. Bilateral M1 and distal MCA branches are patent. No aneurysm. Bilateral distal vertebral arteries are patent. Basilar artery is patent. Bilateral PICAs and SCAs are patent. Normal appearance of the basilar tip. Bilateral P1 and distal CAD DRAFTER segments are patent. Bilateral posterior communicating arteries are present. No aneurysm. Dural venous sinuses and proximal internal jugular veins are patent. Visualized brain parenchyma is unremarkable. No mass- effect or midline shift. No hydrocephalus. Visualized paranasal sinuses and mastoid air cells are clear. Regional osseous structures structures are intact. IMPRESSION: Negative c erebral CT angiography. Location: [facility] Signed by Jason Oliveira MD on 10/10/2019 at 2212 Reported and signed by: Jason Oliveira MD PAGE 1 Signed Report (CONTINUED) Name: DORIAN DUBON [facility] : 1970 Age/S: 48 / F [address] [facility] Unit #: [id number] Loc: [place] [address] Phys: Shireen Cleveland DO Acct: [id number] Dis Date: Status: REG ER PHONE #: [phone] Exam Date: 20190 FAX #: [phone] Reason: HEADACHE EXAMS: CPT CODE: [id number] CTA HEAD 36323 <Continued> CC: Shireen Cleveland DO Technologist:Joie Henry RT(R); NASEEM Ramirez CTDI: DLP: Trnscb Date/Time: 10/10/2019 (2211) t.SDR.RR31/t.SDR.RR31 Orig Print D/T: S: 10/10/2019 (5) PAGE 2 Signed Report - XR CHEST 1 [id number] 18:29:00 FAX: Shireen Cleveland DO [place]: B St: REG Name: DORIAN KNAPP [facility] : [birth year] Age/S: 48/F [facility] Unit #: [id number] Loc: [facility] [place] [address] Phys: Shireen Cleveland DO Acct: [id number] Dis Date: Status: REG ER PHONE #: [phone] Exam Date: 10/10/2019 1800 FAX #: [phone] Reason: Altered Mental Status EXAMS: CPT CODE: [id number] XR CHEST 1 V 06564 REASON FOR EXAM: Altered M ental Status Exam Order Date: 10/10/2019 4:04 PM Order ing MMartinez: Shireen Cleveland DO PROCEDURE: - XR CHEST 1 V COMPARISON: Chest x-ray August 29, 2019 FINDINGS: The aniceto ngs are clear. There is no pleural effusion or pneumothorax. Pulmonary va scularity is within normal limits. Cardiomediastinal silhouette is normal in size for technique. The mediastinal contours are within normal limits. Hardware in the cervical spine is unchanged from the prior exam. The visualized upper abdomen is within normal limits. IMPRESSION: No acute cardiopulmonary process. Location: [facility] at 1829 Reported and signed by: Jason Gonzalez CC: Shireen Cleveland DO Techno logist: RT IHSAN(R) Trnscrd Date/Time /By: 10/10/2019 (1828) : By: [email or web address] Orig Print D/T: S: 10/10/2019 ( 183) PAGE 1 Signed Report COVID 19 INHOUSE [id number] 18:17:00* Test Item Value Reference Range Interpretation Comments COVID 19 INHOUSE AG (test code = [id number]) NEGATIVE Is patient requiring admission or transfer? YIndication for rapid COVID-19 testi ng: Mod Clinical SuspicionURINALYSIS [id number] 18:06:00* Test Item Value Reference Range Interpretation Comments UA COLOR (test code = COLU) COLORLESS YELLOW A UA APPEARANCE (test code = APPU) CLEAR CLEAR UA GLUCOSE DIPSTICK (test code = DGLUU) NEGATIVE mg/dL NEGATIVE UA BILIRUBIN DIPSTICK (test code = BILU) NEGATIVE mg/dL NEGATIVE UA KETONE DIPSTICK (test code = KETU) NEGATIVE mg/dL NEGATIVE UA SPECIFIC GRAVITY (test code = SGU) 1.004 1.001-1.035 UA BLOOD DIPSTICK (test code = GERA) 0.1 mg/dL (1+) mg/dL NEGATIVE A UA PH DIPSTICK (test code = DOUG) 6.0 5.0-8.0 UA PROTEIN DIPSTICK (test code = PROU) NEGATIVE mg/dL NEGATIVE UA UROBILINIOGEN DIPSTICK (test code = URO) Normal mg/dL NEGATIVE UA NITRITE DIPSTICK (test code = YRIS) NEGATIVE NEGATIVE UA LEUKOCYTE ESTERASE W REFLEX (test code = LEUUR) 250 Sam/u L (2+) Sam/uL NEGATIVE A UA WBC (test code = WBCU) 10-20 per HPF 0-5 A UA RBC (test code = RBCU) 0-2 #/HPF 0-5 UA WBC CLUMPS (test code = WBCUCL) 3-6 /HPF NONE A UA EPITHELIAL CELLS (test code = EPIU) FEW per HPF FEW UA BACTERIA (test code = BACU) MANY #/HPF NONE UA RENAL CELLS (test code = LILIA) FEW #/HPF 0-5 UA YEAST (test code = YEASTU) FEW #/HPF NONE Urine Source? Clean CatchBASIC METABOLIC [id number] 17:31:00* Test Item Value Reference Range Interpretation Comments SODIUM (test code = NA) 143 mmol/L 136-145 N POTASSIUM (test code = K) 3.4 mmol/L 3.5-5.1 L CHLORIDE (test code = CL) 111.0 mmol/L 98-107 H CARBON DIOXIDE (test code = CO2) 23.0 mmol/L 21-32 N ANION GAP (test code = GAP) 12.4 10-20 N GLUCOSE (test code = GLU) 112 mg/dL 74-106 H BLOOD UREA NITROGEN (test code = BUN) 6 mg/dL 7-18 L GLOMERULAR FILTRATION RATE (test code = GFR) > 60 mL/min >=60 Estimated GFR by using Modified MDRD formula.Chronic kidney disease is defined as either kidney damageor GFR <60 mL/min/1.73 m2 for >3 months. CREATININE (test code = CREAT) 0.70 mg/dL 0.55-1.02 N Note change in reference range due to change in reagent. BUN/CREATININE RATIO (test code = BUN/CREA) 9.0 10-20 L CALCIUM (test code = CA) 8.8 mg/dL 8.5-10.1 N HEPATIC FUNCTION [id number] 17:31:00* Test Item Value Reference Range Interpretation Comments TOTAL PROTEIN (test code = PROT) 7.8 gram/dL 6.4-8.2 N ALBUMIN (test code = ALB) 4.0 g/dL 3.4-5.0 N GLOBULIN (test code = GLOB) 3.8 gram/dL 2.7-4.2 N ALBUMIN/GLOBULIN RATIO (test code = A/G) 1.1 0.75-1.50 N BILIRUBIN TOTAL (test code = BILT) 0.80 mg/dL 0.0-1.0 N BILIRUBIN DIRECT (test code = BILD) 0.20 mg/dL 0.0-0.20 N SGOT/AST (test code = AST) 28 IUnit/L 15-37 N SGPT/ALT (test code = ALT) 32 IUnit/L 12-78 N ALKALINE PHOSPHATASE TOTAL (test code = ALKP) 115 IUnit/L 45-117 N Note change in reference range due to change in reagent. [id number] 17:31:00* Test Item Value Reference Range Interpretation Comments TROPONIN-I (test code = TROPI) <0.015 ng/mL 0-0.045 N [id number] 17:24:00* Test Item Value Reference Range Interpretation Comments ALCOHOL (test code = ALC) 268 mg/dL 0.0-3.0 H -- INTERPRETIVE DATA NOTE: POSITIVE SCREENING RESULTS SHOULD BE CONSIDERED PRESUMPTIVE.WHEN COLLECTED FOR MEDICAL PURPOSES ONLY. SPECIMEN WILL NOTBE COLLECTED BY CHAIN OF CUSTODY.IF A CONFIRMATION OF POSITIVE RESULTS IS DESIRED, ACONFIRMATION TEST MUST BE REQUESTED BY THE PHYSICIAN [facility] THE [facility]IENT. BASIC METABOLIC [id number] 17:22:00* Test Item Value Reference Range Interpretation Comments SODIUM (test code = NA) 143 mmol/L 136-145 N POTASSIUM (test code = K) 3.4 mmol/L 3.5-5.1 L CHLORIDE (test code = CL) 111.0 mmol/L 98-107 H CARBON DIOXIDE (test code = CO2) mmol/L 21-32 ANION GAP (test code = GAP) 10-20 GLUCOSE (test code = GLU) mg/dL 74-106 BLOOD UREA NITROGEN (test code = BUN) mg/dL 7-18 GLOMERULAR FILTRATION RATE (test code = GFR) mL/min >=60 CREATININE (test code = CREAT) mg/dL 0.55-1.02 BUN/CREATININE RATIO (test code = BUN/CREA) 10-20 CALCIUM (test code = CA) mg/dL 8.5-10.1 HEPATIC FUNCTION [id number] 17:22:00* Test Item Value Reference Range Interpretation Comments TOTAL PROTEIN (test code = PROT) gram/dL 6.4-8.2 ALBUMIN (test code = ALB) g/dL 3.4-5.0 GLOBULIN (test code = GLOB) gram/dL 2.7-4.2 ALBUMIN/GLOBULIN RATIO (test code = A/G) 0.75-1.50 BILIRUBIN TOTAL (test code = BILT) mg/dL 0.0-1.0 BILIRUBIN DIRECT (test code = BILD) mg/dL 0.0-0.20 SGOT/AST (test code = AST) IUnit/L 15-37 SGPT/ALT (test code = ALT) IUnit/L 12-78 ALKALINE PHOSPHATASE TOTAL (test code = ALKP) IUnit/L 45-117 [id number] 17:22:00* Test Item Value Reference Range Interpretation Comments TROPONIN-I (test code = TROPI) ng/mL 0-0.045 - CT HEAD/BRAIN W/O [id number] 17:18:00 Name: DORIAN DUBON [facility] : 1970 Age/S: 48 / F [address] [facility] Unit #: [id number] Loc: [place] [address] Phys: Shireen Cleveland DO Acct: [id number] Dis Date: Status: REG ER PHONE #: [phone] Exam Date: 10/10/2019 1650 FAX #: [phone] Reason: Altered Mental Status EXAMS: CPT CODE: [id number] CT HEAD/BRAIN W/O CONT 56919 HISTORY: Altered Mental Status TECHNIQUE: Noncontrast 2.[address] of the head. Examination acquired within 24 hours of arrival. Automated exposure control for dose reduction. COMPARISON: None FINDINGS: No lacerations or contusions of the scalp or facial soft tissues. Calvarium and skull base are intact. No acute hemorrhage. No intracranial mass, mass effect, or midline shift. No effacement of the sulci or veras- white matter interface. No cortical atrophy. No signs of white matter small-vessel disease. No hydrocephalus.. No extra-axial fluid collection. Visualized paranasal sinuses are clear. Mastoid air cells and middle ear cavities are clear. Orbital contents are unremarkable. IMPRESSION: Negative CT head. Location: [facility] at 1718 Reported and signed by: Jason Oliveira MD CC: Shireen Cleveland DO Technologist:Joie Henry RT(R); NASEEM Ramirez CTDI: DLP: Trnscb Date/Time: 10/10/2019 (1718) [email or web address] Orig Print D/T: S: 10/10/2019 (1723) PAGE 1 Signed Report CBC W/AUTO [id number] 17:05:00* Test Item Value Reference Range Interpretation Comments WHITE BLOOD CELL (test code = WBC) 8.2 K/mm3 4.5-12.5 N RED BLOOD CELL (test code = RBC) 4.75 mill/mm3 3.7-5.2 N HEMOGLOBIN (test code = HGB) 15.6 gram/dL 11.5-15.5 H HEMATOCRIT (test code = HCT) 45.9 % 36.0-46.0 N MEAN CELL VOLUME (test code = MCV) 96.6 fL 80-98 N MEAN CELL HGB (test code = MCH) 32.8 picogram 27.0-33.0 N MEAN CELL HGB CONCETRATION (test code = MCHC) 34.0 gram/dL 33.0-36. 0 N RED CELL DISTRIBUTION WIDTH (test code = RDW) 14.2 % 11.6-16. 2 N RED CELL DISTRIBUTION WIDTH SD (test code = RDW-SD) 50.5 fL 37 .0-51.0 N PLATELET COUNT (test code = PLT) 459 K/mm3 150-450 H MEAN PLATELET VOLUME (test code = MPV) 9.5 fL 6.7-11.0 N NEUTROPHIL % (test code = NT%) 53.8 % 39.0-69.0 N IMMATURE GRANULOCYTE % (test code = IG%) 0.2 % 0.0-5.0 N LYMPHOCYTE % (test code = LY%) 35.8 % 25.0-55.0 N MONOCYTE % (test code = MO%) 5.7 % 0.0-10.0 N EOSINOPHIL % (test code = EO%) 3.5 % 0.0-5.0 N BASOPHIL % (test code = BA%) 1.0 % 0.0-1.0 N NUCLEATED RBC % (test code = NRBC%) 0.0 % 0-0 N NEUTROPHIL # (test code = NT#) 4.40 K/mm3 1.8-7.7 N IMMATURE GRANULOCYTE # (test code = IG#) 0.02 x10 3/uL 0-0.03 N LYMPHOCYTE # (test code = LY#) 2.93 K/mm3 1.0-5.0 N MONOCYTE # (test code = MO#) 0.47 K/mm3 0-0.8 N EOSINOPHIL # (test code = EO#) 0.29 K/mm3 0.0-0.5 N BASOPHIL # (test code = BA#) 0.08 K/mm3 0.0-0.2 N NUCLEATED RBC # (test code = NRBC#) 0.00 K/mm3 0.0-0.1 N MANUAL DIFF REQUIRED (test code = MDIFF) NO [id number] 16:49:00* Test Item Value Reference Range Interpretation Comments GLUBED (test code = GLUBED) 111 mg/dL 74-106 H Performed by certified grinder setup operator at [facility] - US ABDOMEN [id number] 11:02:00 Name: DORIAN DUBON [facility] : 1970 Age/S: 48 / F [address] [facility] Unit #: [id number] Loc: [place] [address] Phys: Lexa Escobar MD Acct: [id number] Dis Date: Status: REG ER PHONE #: [phone] Exam Date: 09/24/2019 1041 FAX #: [phone] Reason: upper abdominal pain EXAMS: CPT CODE: [id number] US ABDOMEN COMPLETE [address] REASON FOR EXAM: upper abdominal pain EXAM ORDER DATE: 09/24/2019 10:09 AM Attending MMartinez: Lexa Escobar MD PROCEDURE: - US ABDOMEN COMPLETE Technique: Grayscale and color Doppler images of the abdomen. Comparison study: None FINDINGS: Aorta and IVC: Patent and grossly normal in caliber. Liver: Size: 13.1 cm craniocaudally Parenchyma and contour: Smooth contour. Normal echogenicity. Cysts and/or masses: None. Intrahepatic bile ducts: No intrahepatic biliary ductal dilation Common bile duct: 3.2 mm in diameter. No echogenic filling defects in visualized duct. Gallbladder: Stones/sludge: No intraluminal stones or sludge. Wall: 1.4 mm in thickness. No discontinuity. No polyps. No pericholecystic fluid. No hyperemia. Sonographic Valenzuela's sign: Negative Portal vein: Portal vein caliber is within normal limits. Portal vein is patent with hepatopetal flow. Pancreas: Incompletely visualized. However the visualized portions are grossly within normal limits. Right kidney: parenchyma echogenicity: Normal echogenicity size: 9.1 x 4.5 x 4.2 cm stones: none cysts/masses: none hydronephrosis: none PAGE 1 Signed Report (CONTINUED) Name: DORIAN DUBON [facility] : 1970 Age/S: 48 / F [address] [facility] Unit #: [id number] Loc: [place] [address] Phys: Lexa Escobar MD Acct: [id number] Dis Date: Status: REG ER PHONE #: [phone] Exam Date: 09/24/2019 1041 FAX #: [phone] Reason: upper abdominal pain EXAMS: CPT CODE: [id number] US ABDOMEN COMPLETE 95459 < Continued> Left kidney: parenchyma echogenicity: Normal echogenicity size: 9.9 x 4.9 x 5.0 cm stones: none cysts/masses: none hydronephrosis: none Spleen: size: 8.0 x 2.8 x 3.5 cm cysts/masses: Parenchyma is sonographically unremarkable. Ascites/pleural effusions: None IMPRESSION: Sonographically unremarkable abdomen. Location: [facility] at 1102 Reported and signed by: Jason Oliveira MD CC: Lexa Escobar MD Technologist: Karlene Sanchez RDMS Trnscb Date/Time: 09/24/2019 (1101) [email or web address] Orig Print D/T: S: 09/24/2019 (4168) Probe: PAGE 2 Signed Report URINALYSIS [id number] 10:21:00* Test Item Value Reference Range Interpretation Comments UA COLOR (test code = COLU) YELLOW YELLOW UA APPEARANCE (test code = APPU) HAZY CLEAR A UA GLUCOSE DIPSTICK (test code = DGLUU) norm mg/dL NEGATIVE UA BILIRUBIN DIPSTICK (test code = BILU) NEGATIVE mg/dL NEGATIVE UA KETONE DIPSTICK (test code = KETU) neg mg/dL NEGATIVE UA SPECIFIC GRAVITY (test code = SGU) 1.015 1.001-1.035 UA BLOOD DIPSTICK (test code = GERA) 250 (4+) Brice/uL NEGATIVE A UA PH DIPSTICK (test code = DOUG) 7.0 5.0-8.0 UA PROTEIN DIPSTICK (test code = PROU) 15 (TRACE) mg/dL Neg-15 A UA UROBILINIOGEN DIPSTICK (test code = URO) norm mg/dL 0.0-0.2 UA NITRITE DIPSTICK (test code = YRIS) NEGATIVE NEGATIVE UA LEUKOCYTE ESTERASE DIPSTICK (test code = LEUU) 100 Sam/uL (1+) u L NEGATIVE A UA WBC (test code = WBCU) 6-10 per HPF 0-5 A UA RBC (test code = RBCU) 11-20 per HPF 0-5 UA EPITHELIAL CELLS (test code = EPIU) Moderate (5-10/hpf) per HPF Few UA BACTERIA (test code = BACU) FEW per HPF NONE UA MUCUS (test code = MUCU) MODERATE per LPF NONE-FEW A Urine Source? Clean CatchURINALYSIS [id number] 10:15:00* Test Item Value Reference Range Interpretation Comments UA COLOR (test code = COLU) YELLOW YELLOW UA APPEARANCE (test code = APPU) HAZY CLEAR A UA GLUCOSE DIPSTICK (test code = DGLUU) norm mg/dL NEGATIVE UA BILIRUBIN DIPSTICK (test code = BILU) NEGATIVE mg/dL NEGATIVE UA KETONE DIPSTICK (test code = KETU) neg mg/dL NEGATIVE UA SPECIFIC GRAVITY (test code = SGU) 1.015 1.001-1.035 UA BLOOD DIPSTICK (test code = GERA) 250 (4+) Brice/uL NEGATIVE A UA PH DIPSTICK (test code = DOUG) 7.0 5.0-8.0 UA PROTEIN DIPSTICK (test code = PROU) 15 (TRACE) mg/dL Neg-15 A UA UROBILINIOGEN DIPSTICK (test code = URO) norm mg/dL 0.0-0.2 UA NITRITE DIPSTICK (test code = YRIS) NEGATIVE NEGATIVE UA LEUKOCYTE ESTERASE DIPSTICK (test code = LEUU) 100 Sam/uL (1+) u L NEGATIVE A UA WBC (test code = WBCU) per HPF 0-5 UA RBC (test code = RBCU) per HPF 0-5 UA EPITHELIAL CELLS (test code = EPIU) per HPF Few UA BACTERIA (test code = BACU) per HPF NONE Urine Source? Clean CatchBASIC METABOLIC [id number] 09:55:00* Test Item Value Reference Range Interpretation Comments SODIUM (test code = NA) 147 mmol/L 136-145 H POTASSIUM (test code = K) 3.9 mmol/L 3.5-5.1 N CHLORIDE (test code = CL) 112 mmol/L 101-109 H CARBON DIOXIDE (test code = CO2) 30.3 mmol/L 21-32 N ANION GAP (test code = GAP) 9 mmol/L 10-20 L GLUCOSE (test code = GLU) 95 mg/dL 74-106 N BLOOD UREA NITROGEN (test code = BUN) 9 mg/dL 3-21 N GLOMERULAR FILTRATION RATE (test code = GFR) > 60 mL/min >=60 Estimated GFR by using Modified MDRD formula.Chronic kidney disease is defined as either kidney damageor GFR <60 mL/min/1.73 m2 for >3 months. CREATININE (test code = CREAT) 0.93 mg/dL 0.55-1.3 N BUN/CREATININE RATIO (test code = BUN/CREA) 9.7 10-20 L CALCIUM (test code = CA) 8.2 mg/dL 8.4-10.2 L HEPATIC FUNCTION [id number] 09:55:00* Test Item Value Reference Range Interpretation Comments TOTAL PROTEIN (test code = PROT) 6.0 g/dL 6.5-8.4 L ALBUMIN (test code = ALB) 3.3 g/dL 3.4-4.8 L GLOBULIN (test code = GLOB) 2.7 G/DL 1-10 N ALBUMIN/GLOBULIN RATIO (test code = A/G) 1.22 RATIO 0.75-1.50 N BILIRUBIN TOTAL (test code = BILT) 0.40 mg/dL 0.0-1.0 N BILIRUBIN DIRECT (test code = BILD) 0.10 mg/dL 0.0-0.30 N SGOT/AST (test code = AST) 20 U/L 6-32 N SGPT/ALT (test code = ALT) 25 U/L 12-78 N N ote: Change in REFERENCE RANGE due to new reagent method. ALKALINE PHOSPHATASE TOTAL (test code = ALKP) 72 U/L 38-126 N [id number] 09:55:00* Test Item Value Reference Range Interpretation Comments LIPASE (test code = LIP) 126 U/L 128-270 L HCG SERUM [id number] 09:55:00* Test Item Value Reference Range Interpretation Comments HCG SERUM QUAL (test code = HCGQL) NEGATIVE NEGATIVE This HCGQL test is NOT applicable for MALE patients.Check with nurse about probable order error.If Tumor Marker Test needed, nurse should order test "HCGTU"(Test #550.80163) [id number] 09:55:00* Test Item Value Reference Range Interpretation Comments TROPONIN-I (test code = TROPI) <0.015 ng/mL 0.00-0.056 N BASIC METABOLIC [id number] 09:52:00* Test Item Value Reference Range Interpretation Comments SODIUM (test code = NA) 147 mmol/L 136-145 H POTASSIUM (test code = K) 3.9 mmol/L 3.5-5.1 N CHLORIDE (test code = CL) 112 mmol/L 101-109 H CARBON DIOXIDE (test code = CO2) 30.3 mmol/L 21-32 N ANION GAP (test code = GAP) 9 mmol/L 10-20 L GLUCOSE (test code = GLU) 95 mg/dL 74-106 N BLOOD UREA NITROGEN (test code = BUN) 9 mg/dL 3-21 N GLOMERULAR FILTRATION RATE (test code = GFR) > 60 mL/min >=60 Estimated GFR by using Modified MDRD formula.Chronic kidney disease is defined as either kidney damageor GFR <60 mL/min/1.73 m2 for >3 months. CREATININE (test code = CREAT) 0.93 mg/dL 0.55-1.3 N BUN/CREATININE RATIO (test code = BUN/CREA) 9.7 10-20 L CALCIUM (test code = CA) 8.2 mg/dL 8.4-10.2 L HEPATIC FUNCTION [id number] 09:52:00* Test Item Value Reference Range Interpretation Comments TOTAL PROTEIN (test code = PROT) gram/dL 6.4-8.2 ALBUMIN (test code = ALB) g/dL 3.4-5.0 GLOBULIN (test code = GLOB) g/dL 2.7-4.2 ALBUMIN/GLOBULIN RATIO (test code = A/G) 0.75-1.50 BILIRUBIN TOTAL (test code = BILT) mg/dL 0.2-1.2 BILIRUBIN DIRECT (test code = BILD) mg/dL 0.0-0.20 SGOT/AST (test code = AST) IUnit/L 15-37 SGPT/ALT (test code = ALT) U/L 10-69 ALKALINE PHOSPHATASE TOTAL (test code = ALKP) IUnit/L 45-117 [id number] 09:52:00* Test Item Value Reference Range Interpretation Comments LIPASE (test code = LIP) Unit/L 144-286 HCG SERUM [id number] 09:52:00* Test Item Value Reference Range Interpretation Comments HCG SERUM QUAL (test code = HCGQL) NEGATIVE NEGATIVE This HCGQL test is NOT applicable for MALE patients.Check with nurse about probable order error.If Tumor Marker Test needed, nurse should order test "HCGTU"(Test #550.72422) [id number] 09:52:00* Test Item Value Reference Range Interpretation Comments TROPONIN-I (test code = TROPI) ng/mL 0-0.045 BASIC METABOLIC [id number] 09:47:00* Test Item Value Reference Range Interpretation Comments SODIUM (test code = NA) mmol/L 135-148 POTASSIUM (test code = K) mmol/L 3.5-5.1 CHLORIDE (test code = CL) mmol/L 101-109 CARBON DIOXIDE (test code = CO2) mmol/L 21-32 ANION GAP (test code = GAP) mmol/L 10-20 GLUCOSE (test code = GLU) mg/dL 74-106 BLOOD UREA NITROGEN (test code = BUN) mg/dL 3-21 GLOMERULAR FILTRATION RATE (test code = GFR) mL/min >=60 CREATININE (test code = CREAT) mg/dL 0.55-1.3 BUN/CREATININE RATIO (test code = BUN/CREA) 10-20 CALCIUM (test code = CA) mg/dL 8.4-10.2 HEPATIC FUNCTION [id number] 09:47:00* Test Item Value Reference Range Interpretation Comments TOTAL PROTEIN (test code = PROT) gram/dL 6.4-8.2 ALBUMIN (test code = ALB) g/dL 3.4-5.0 GLOBULIN (test code = GLOB) g/dL 2.7-4.2 ALBUMIN/GLOBULIN RATIO (test code = A/G) 0.75-1.50 BILIRUBIN TOTAL (test code = BILT) mg/dL 0.2-1.2 BILIRUBIN DIRECT (test code = BILD) mg/dL 0.0-0.20 SGOT/AST (test code = AST) IUnit/L 15-37 SGPT/ALT (test code = ALT) U/L 10-69 ALKALINE PHOSPHATASE TOTAL (test code = ALKP) IUnit/L 45-117 [id number] 09:47:00* Test Item Value Reference Range Interpretation Comments LIPASE (test code = LIP) Unit/L 144-286 HCG SERUM [id number] 09:47:00* Test Item Value Reference Range Interpretation Comments HCG SERUM QUAL (test code = HCGQL) NEGATIVE NEGATIVE This HCGQL test is NOT applicable for MALE patients.Check with nurse about probable order error.If Tumor Marker Test needed, nurse should order test "HCGTU"(Test #[id number]) [id number] 09:47:00* Test Item Value Reference Range Interpretation Comments TROPONIN-I (test code = TROPI) ng/mL 0-0.045 CBC W/O [id number] 09:45:00* Test Item Value Reference Range Interpretation Comments WHITE BLOOD CELL (test code = WBC) 7.3 K/mm3 4.5-12.5 N RED BLOOD CELL (test code = RBC) 3.70 mill/mm3 3.7-5.2 N HEMOGLOBIN (test code = HGB) 12.4 gram/dL 11.5-15.5 N HEMATOCRIT (test code = HCT) 38.0 % 36.0-46.0 N MEAN CELL VOLUME (test code = MCV) 102.7 fL 80-98 H MEAN CELL HGB (test code = MCH) 33.5 picogram 27.0-33.0 H MEAN CELL HGB CONCETRATION (test code = MCHC) 32.6 gram/dL 33.0-36. 0 L RED CELL DISTRIBUTION WIDTH (test code = RDW) 14.3 % 11.6-16. 2 N RED CELL DISTRIBUTION WIDTH SD (test code = RDW-SD) 55.2 fL 37 .0-51.0 H PLATELET COUNT (test code = PLT) 239 K/mm3 150-450 N MEAN PLATELET VOLUME (test code = MPV) 10.4 fL 6.7-11.0 N Urine opiates screening [id number] 01:10:00* Test Item Value Reference Range Interpretation Comments Urine Opiates Screen (test code = 27772-0) NEGATIVE NEGATIVE ALL TESTS PERFORMED MANUALLY ON BIORAD TOX/SEE TESTD[facility] TexasBarbiturates screen, [id number] 01:10:00* Test Item Value Reference Range Interpretation Comments Urine Barbiturates Screen (test code = 504830332) NEGATIVE NEGA TIVE [facility] TexasUrine phencyclidine detection by screening [id number] 01:10:00* Test Item Value Reference Range Interpretation Comments Urine Phencyclidine Screen (test code = 79965-6) NEGATIVE NEGAT YAIMA [facility] TexasUrine amphetamines detection by screen method > 1000 [id number] 01:10:00* Test Item Value Reference Range Interpretation Comments Urine Amphetamines Screen (test code = 48918-9) NEGATIVE NEGATI VE [facility] TexasFluoroscopic procedure less than one hour [id number] 01:10:00* Test Item Value Reference Range Interpretation Comments Urine Methamphetamines Screen (test code = Urine Metha mphetamines Screen) NEGATIVE NEGATIVE [facility] TexasUrine benzodiazepines detection by screening [id number] 01:10:00* Test Item Value Reference Range Interpretation Comments Urine Benzodiazepines Screen (test code = 01987-1) POSITIVE NEG ATIVE This test provides only a screen. Positive results should be repeated by a confi rmatory test.[facility] TexasUrine cocaine measurement (mass/volume)2019-09-08 01:10:00* Test Item Value Reference Range Interpretation Comments Urine Cocaine Screen (test code = 3398-5) NEGATIVE NEGATIVE [facility] TexasUrine cannabinoids detection by screening [id number] 01:10:00* Test Item Value Reference Range Interpretation Comments Urine Cannabinoids Screen (test code = 79767-8) POSITIVE NEGATI VE This test provides only a screen. Positive results should be repeated by a confi rmatory test.[facility] TexasUrine methadone screen 2019-09-08 01:10:00* Test Item Value Reference Range Interpretation Comments Urine Methadone Screen (test code = 02259-2) NEGATIVE NEGATIVE THESE RESULTS ARE FOR MEDICAL TREATMENT ONLYTHIS REPORT CONTAINS UNCONFIR MED SCREENING RESULTS*POSITIVE RESULTS WILL BE CONFIRMED BY REFERENCE LAB UPON R EQUEST CUT-OFFDRUG CLASS CONCENTRATION ng/mLAmphetamines 1000Methamphetamines 1000Cocaine Metabolite 300Opiate 300Phencyc lidine 25Cannabinoid 50Barbiturates 300Benzodiazepine 300Methadone 300[facility] CenterU[facility] opiates screening [id number] 01:10:00* Test Item Value Reference Range Interpretation Comments Urine Opiates Screen (test code = 80977-7) NEGATIVE NEGATIVE ALL TESTS PERFORMED MANUALLY ON sage[employer] TOX/SEE TESTD[facility] of TexasBarbiturates screen, [id number] 01:10:00* Test Item Value Reference Range Interpretation Comments Urine Barbiturates Screen (test code = 712635294) NEGATIVE NEGA TIVE [facility] TexasUrine phencyclidine detection by screening [id number] 01:10:00* Test Item Value Reference Range Interpretation Comments Urine Phencyclidine Screen (test code = 28029-2) NEGATIVE NEGAT YAIMA [facility] TexasUrine amphetamines detection by screen method > 1000 [id number] 01:10:00* Test Item Value Reference Range Interpretation Comments Urine Amphetamines Screen (test code = 75995-0) NEGATIVE NEGATI VE [facility] TexasFluoroscopic procedure less than one hour [id number] 01:10:00* Test Item Value Reference Range Interpretation Comments Urine Methamphetamines Screen (test code = Urine Metha mphetamines Screen) NEGATIVE NEGATIVE [facility] TexasUrine benzodiazepines detection by screening [id number] 01:10:00* Test Item Value Reference Range Interpretation Comments Urine Benzodiazepines Screen (test code = 71816-4) POSITIVE NEG ATIVE This test provides only a screen. Positive results should be repeated by a confi rmatory test.[facility] TexasUrine cocaine measurement (mass/volume)2019-09-08 01:10:00* Test Item Value Reference Range Interpretation Comments Urine Cocaine Screen (test code = 3398-5) NEGATIVE NEGATIVE [facility] TexasUrine cannabinoids detection by screening [id number] 01:10:00* Test Item Value Reference Range Interpretation Comments Urine Cannabinoids Screen (test code = 58392-7) POSITIVE NEGATI VE This test provides only a screen. Positive results should be repeated by a confi rmatory test.[facility] TexasUrine methadone screen 2019-09-08 01:10:00* Test Item Value Reference Range Interpretation Comments Urine Methadone Screen (test code = 94334-3) NEGATIVE NEGATIVE THESE RESULTS ARE FOR MEDICAL TREATMENT ONLYTHIS REPORT CONTAINS UNCONFIR MED SCREENING RESULTS*POSITIVE RESULTS WILL BE CONFIRMED BY REFERENCE LAB UPON R EQUEST CUT-OFFDRUG CLASS CONCENTRATION ng/mLAmphetamines 1000Methamphetamines 1000Cocaine Metabolite 300Opiate 300Phencyc lidine 25Cannabinoid 50Barbiturates 300Benzodiazepine 300Methadone 300[facility] CenterBlood leukocytes automated count (number/volume) 2019-09-07 23:09:00* Test Item Value Reference Range Interpretation Comments White Blood Count (test code = 6690-2) 8.13 4.8-10.8 [facility] TexasBlood erythrocytes automated count (number/volume)2019-09-07 23:09:00* Test Item Value Reference Range Interpretation Comments Red Blood Count (test code = 789-8) 4.14 3.6-5.1 [facility] TexasBlood hemoglobin measurement (moles/volume)2019-09-07 23:09:00* Test Item Value Reference Range Interpretation Comments Hemoglobin (test code = 89203-2) 13.3 12.0-16.0 [facility] TexasAutomated blood hematocrit (volume fraction)2019-09-07 23:09:00* Test Item Value Reference Range Interpretation Comments Hematocrit (test code = 4544-3) 40.2 34.2-44.1 [facility] TexasAutomated erythrocyte mean corpuscular [id number] 23:09:00* Test Item Value Reference Range Interpretation Comments Mean Corpuscular Volume (test code = 787-2) 97.1 81-99 [facility] TexasAutomated erythrocyte mean corpuscular hemoglobin (mass per erythrocyte)2019-09-07 23:09:00* Test Item Value Reference Range Interpretation Comments Mean Corpuscular Hemoglobin (test code = 785-6) 32.1 28-32 [facility] TexasAutomated erythrocyte mean corpuscular hemoglobin concentration measurement (mass/volume)2019-09-07 23:09:00* Test Item Value Reference Range Interpretation Comments Mean Corpuscular Hemoglobin Concent (test code = 786-4) 33.1 31-35 [facility] of TexasRDW [id number] 23:09:00* Test Item Value Reference Range Interpretation Comments Red Cell Distribution Width (test code = 14501-0) 14.1 11.7 -14.4 [facility] TexasAutomated blood platelet count (count/volume)2019-09-07 23:09:00* Test Item Value Reference Range Interpretation Comments Platelet Count (test code = 777-3) 288 140-360 [facility] TexasAutcritical access hospitaled blood segmented neutrophil count as percentage of total [id number] 23:09:00* Test Item Value Reference Range Interpretation Comments Neutrophils (%) (Auto) (test code = 59385-6) 49.7 38.7-80.0 [facility] blood lymphocyte count as percentage ot total [id number] 23:09:00* Test Item Value Reference Range Interpretation Comments Lymphocytes (%) (Auto) (test code = 736-9) 36.2 18.0-39.1 [facility] TexasAutomated blood monocyte count as percentage of total vseciacvgp8656-00-20 23:09:00* Test Item Value Reference Range Interpretation Comments Monocytes (%) (Auto) (test code = 5905-5) 9.6 4.4-11.3 [facility] TexasAutcritical access hospitaled blood eosinophil count as percentage of total [id number] 23:09:00* Test Item Value Reference Range Interpretation Comments Eosinophils (%) (Auto) (test code = 713-8) 3.2 0.0-6.0 [facility] TexasAutomated blood basophil count as percentage of total [id number] 23:09:00* Test Item Value Reference Range Interpretation Comments Basophils (%) (Auto) (test code = 706-2) 0.9 0.0-1.0 [facility] TexasFluoroscopic procedure less than one hour [id number] 23:09:00* Test Item Value Reference Range Interpretation Comments IM GRANULOCYTES % (test code = IM GRANULOCYTES %) 0.4 0.0- 1.0 [facility] TexasAutomated blood neutrophil count 2019-09-07 23:09:00* Test Item Value Reference Range Interpretation Comments Neutrophils # (Auto) (test code = 751-8) 4.1 2.1-6.9 [facility] TexasBlood lymphocytes count (number/volume) 2019-09-07 23:09:00* Test Item Value Reference Range Interpretation Comments Lymphocytes # (Auto) (test code = 45921-8) 2.9 1.0-3.2 [facility] TexasBlood monocytes automated count (number/volume)2019-09-07 23:09:00* Test Item Value Reference Range Interpretation Comments Monocytes # (Auto) (test code = 742-7) 0.8 0.2-0.8 [facility] TexasAutomated blood eosinophil count 2019-09-07 23:09:00* Test Item Value Reference Range Interpretation Comments Eosinophils # (Auto) (test code = 711-2) 0.3 0.0-0.4 [facility] TexasAutomated blood basophil count (count/volume)2019-09-07 23:09:00* Test Item Value Reference Range Interpretation Comments Basophils # (Auto) (test code = 704-7) 0.1 0.0-0.1 [facility] TexasFluoroscopic procedure less than one hour [id number] 23:09:00* Test Item Value Reference Range Interpretation Comments Absolute Immature Granulocyte (auto (nely t code = Absolute Immature Granulocyte (auto) 0.03 0-0.1 [facility] Campuserum or plasma sodium measurement (moles/volume)2019-09-07 23:09:00* Test Item Value Reference Range Interpretation Comments Sodium Level (test code = 2951-2) 145 136-145 [facility] Campuserum or plasma potassium measurement (moles/volume)2019-09-07 23:09:00* Test Item Value Reference Range Interpretation Comments Potassium Level (test code = 2823-3) 3.1 3.5-5.1 [facility] Campuserum or plasma chloride measurement (moles/volume)2019-09-07 23:09:00* Test Item Value Reference Range Interpretation Comments Chloride Level (test code = 2075-0) 112 98-107 [facility] Campuserum or plasma carbon dioxide, total measurement (moles/volume)2019-09-07 23:09:00* Test Item Value Reference Range Interpretation Comments Carbon Dioxide Level (test code = 2028-9) [facility] Campuserum or plasma anion [id number] 23:09:00* Test Item Value Reference Range Interpretation Comments Anion Gap (test code = 49379-2) 15.1 8-16 [facility] Campuserum or plasma urea nitrogen measurement (mass/volume)2019-09-07 23:09:00* Test Item Value Reference Range Interpretation Comments Blood Urea Nitrogen (test code = 3094-0) 6 7-26 [facility] [facility] creatinine [facility] (mass/volume)2019-09-07 23:09:00* Test Item Value Reference Range Interpretation Comments Creatinine (test code = 2160-0) 0.75 0.57-1.11 [facility] urea nitrogen/creatinine mass [id number] 23:09:00* Test Item Value Reference Range Interpretation Comments BUN/Creatinine Ratio (test code = 3097-3) 8 6-25 [facility] TexasEstimated glomerular filtration rate (GFR) bxomqrflxucnd6707-26-22 23:09:00* Test Item Value Reference Range Interpretation Comments Estimat Glomerular Filtration Rate (test code = 092296379) > 60 >60 Ranges were taken from the National Kidney Disease Education Program and the [facility] literature.Reference ranges:60 or greater: Bnhukn79-57 ( for 3 consecutive months): Chronic kidney disease 15 or less: Kidney failureD[facility] of TexasGlucose tygdyglnvwv1157-18-54 23:09:00* Test Item Value Reference Range Interpretation Comments Glucose Level (test code = BEY4813) 102 74-118 [facility] calcium measurement (mass/volume)2019-09-07 23:09:00* Test Item Value Reference Range Interpretation Comments Calcium Level (test code = 55815-3) 8.2 8.4-10.2 [facility] TexasFluoroscopic procedure less than one hour kttrryyy1036-21-35 23:09:00* Test Item Value Reference Range Interpretation Comments Aspartate Amino Transf (AST/SGOT) (test code = Aspartate Amino Transf (AST/SGOT)) 51 5-34 [facility] alanine aminotransferase measurement (enzymatic activity/volume)2019-09-07 23:09:00* Test Item Value Reference Range Interpretation Comments Alanine Aminotransferase (ALT/SGPT) (test code = 1742-6) 32 0-55 [facility] protein measurement (mass/volume)2019-09-07 23:09:00* Test Item Value Reference Range Interpretation Comments Total Protein (test code = 2885-2) 6.3 6.5-8.1 [facility] albumin measurement (mass/volume)2019-09-07 23:09:00* Test Item Value Reference Range Interpretation Comments Albumin (test code = 1751-7) 3.8 3.5-5.0 [facility] TexasPlasma globulin measurement (mass/volume) 2019-09-07 23:09:00* Test Item Value Reference Range Interpretation Comments Globulin (test code = 52287-3) 2.5 2.3-3.5 [facility] albumin/globulin mass gozsr8444-39-16 23:09:00* Test Item Value Reference Range Interpretation Comments Albumin/Globulin Ratio (test code = 1759-0) 1.5 0.8-2.0 [facility] alkaline phosphatase measurement (enzymatic activity/volume)2019-09-07 23:09:00* Test Item Value Reference Range Interpretation Comments Alkaline Phosphatase (test code = 6768-6) 76 40-150 [facility] plasma creatine kinase measurement (enzymatic activity/volume)2019-09-07 23:09:00* Test Item Value Reference Range Interpretation Comments Creatine Kinase (test code = 2157-6) 433 29-168 [facility] plasma creatine kinase MB measurement (mass/volume)2019-09-07 23:09:00* Test Item Value Reference Range Interpretation Comments Creatine Kinase MB (test code = 74662-5) 3.10 0-4.3 [facility] plasma troponin i.cardiac measurement (mass/volume)2019-09-07 23:09:00* Test Item Value Reference Range Interpretation Comments Troponin I (test code = 18981-7) < 0.05 0.0-0.40 [facility] plasma ethanol measurement (mass/volume)2019-09-07 23:09:00* Test Item Value Reference Range Interpretation Comments Ethyl Alcohol Level (test code = 5643-2) 210.8 0.0-10.0 [facility] TexasBlood leukocytes automated count (number/volume)2019-09-07 23:09:00* Test Item Value Reference Range Interpretation Comments White Blood Count (test code = 6690-2) 8.13 4.8-10.8 [facility] TexasBlood erythrocytes automated count (number/volume)2019-09-07 23:09:00* Test Item Value Reference Range Interpretation Comments Red Blood Count (test code = 789-8) 4.14 3.6-5.1 [facility] TexasBlood hemoglobin measurement (moles/volume)2019-09-07 23:09:00* Test Item Value Reference Range Interpretation Comments Hemoglobin (test code = 61334-9) 13.3 12.0-16.0 [facility] TexasAutomated blood hematocrit (volume fraction)2019-09-07 23:09:00* Test Item Value Reference Range Interpretation Comments Hematocrit (test code = 4544-3) 40.2 34.2-44.1 [facility] TexasAutomated erythrocyte mean corpuscular bdlslv0127-70-64 23:09:00* Test Item Value Reference Range Interpretation Comments Mean Corpuscular Volume (test code = 787-2) 97.1 81-99 [facility] TexasAutomated erythrocyte mean corpuscular hemoglobin (mass per erythrocyte)2019-09-07 23:09:00* Test Item Value Reference Range Interpretation Comments Mean Corpuscular Hemoglobin (test code = 785-6) 32.1 28-32 [facility] TexasAutomated erythrocyte mean corpuscular hemoglobin concentration measurement (mass/volume)2019-09-07 23:09:00* Test Item Value Reference Range Interpretation Comments Mean Corpuscular Hemoglobin Concent (test code = 786-4) 33.1 31-35 [facility] of TexasRDW VlkJx-Jnb1529-60-29 23:09:00* Test Item Value Reference Range Interpretation Comments Red Cell Distribution Width (test code = 74407-6) 14.1 11.7 -14.4 [facility] TexasAutomated blood platelet count (count/volume)2019-09-07 23:09:00* Test Item Value Reference Range Interpretation Comments Platelet Count (test code = 777-3) 288 140-360 [facility] TexasAutcritical access hospitaled blood segmented neutrophil count as percentage of total hytlzudurt8448-12-04 23:09:00* Test Item Value Reference Range Interpretation Comments Neutrophils (%) (Auto) (test code = 50483-3) 49.7 38.7-80.0 [facility] TexasAutomated blood lymphocyte count as percentage ot total dhkhhfwmxo3603-42-42 23:09:00* Test Item Value Reference Range Interpretation Comments Lymphocytes (%) (Auto) (test code = 736-9) 36.2 18.0-39.1 [facility] TexasAutomated blood monocyte count as percentage of total cvcdxnzvmx6796-24-63 23:09:00* Test Item Value Reference Range Interpretation Comments Monocytes (%) (Auto) (test code = 5905-5) 9.6 4.4-11.3 [facility] TexasAutomated blood eosinophil count as percentage of total zjbzayjdlc8380-90-78 23:09:00* Test Item Value Reference Range Interpretation Comments Eosinophils (%) (Auto) (test code = 713-8) 3.2 0.0-6.0 [facility] TexasAutomated blood basophil count as percentage of total bqnqofgybd3248-08-98 23:09:00* Test Item Value Reference Range Interpretation Comments Basophils (%) (Auto) (test code = 706-2) 0.9 0.0-1.0 [facility] TexasFluoroscopic procedure less than one hour mxyjkvkf3114-28-89 23:09:00* Test Item Value Reference Range Interpretation Comments IM GRANULOCYTES % (test code = IM GRANULOCYTES %) 0.4 0.0- 1.0 [facility] TexasAutomated blood neutrophil count 2019-09-07 23:09:00* Test Item Value Reference Range Interpretation Comments Neutrophils # (Auto) (test code = 751-8) 4.1 2.1-6.9 [facility] TexasBlood lymphocytes count (number/volume) 2019-09-07 23:09:00* Test Item Value Reference Range Interpretation Comments Lymphocytes # (Auto) (test code = 05263-8) 2.9 1.0-3.2 [facility] TexasBlst. john[facility] hospital monocytes automated count (number/volume)2019-09-07 23:09:00* Test Item Value Reference Range Interpretation Comments Monocytes # (Auto) (test code = 742-7) 0.8 0.2-0.8 [facility] TexasAutomated blood eosinophil count 2019-09-07 23:09:00* Test Item Value Reference Range Interpretation Comments Eosinophils # (Auto) (test code = 711-2) 0.3 0.0-0.4 [facility] TexasAutomated blood basophil count (count/volume)2019-09-07 23:09:00* Test Item Value Reference Range Interpretation Comments Basophils # (Auto) (test code = 704-7) 0.1 0.0-0.1 [facility] TexasFluoroscopic procedure less than one hour nivjkzsg4431-28-28 23:09:00* Test Item Value Reference Range Interpretation Comments Absolute Immature Granulocyte (auto (nely t code = Absolute Immature Granulocyte (auto) 0.03 0-0.1 [facility] sodium measurement (moles/volume)2019-09-07 23:09:00* Test Item Value Reference Range Interpretation Comments Sodium Level (test code = 2951-2) 145 136-145 [facility] potassium measurement (moles/volume)2019-09-07 23:09:00* Test Item Value Reference Range Interpretation Comments Potassium Level (test code = 2823-3) 3.1 3.5-5.1 [facility] plasma chloride measurement (moles/volume)2019-09-07 23:09:00* Test Item Value Reference Range Interpretation Comments Chloride Level (test code = 2075-0) 112 98-107 [facility] plasma carbon dioxide, total measurement (moles/volume)2019-09-07 23:09:00* Test Item Value Reference Range Interpretation Comments Carbon Dioxide Level (test code = 2028-9) 21 - [facility] plasma anion [id number] 23:09:00* Test Item Value Reference Range Interpretation Comments Anion Gap (test code = 96129-4) 15.1 8-16 [facility] plasma urea nitrogen measurement (mass/volume)2019-09-07 23:09:00* Test Item Value Reference Range Interpretation Comments Blood Urea Nitrogen (test code = 3094-0) 6 7-26 [facility] plasma creatinine measurement (mass/volume)2019-09-07 23:09:00* Test Item Value Reference Range Interpretation Comments Creatinine (test code = 2160-0) 0.75 0.57-1.11 [facility] plasma urea nitrogen/creatinine mass dlnbb8277-23-31 23:09:00* Test Item Value Reference Range Interpretation Comments BUN/Creatinine Ratio (test code = 3097-3) 8 6-25 [facility] TexasEstimated glomerular filtration rate (GFR) iwqgctigbvlsm0114-43-54 23:09:00* Test Item Value Reference Range Interpretation Comments Estimat Glomerular Filtration Rate (test code = 361410617) > 60 >60 Ranges were taken from the National Kidney Disease Education Program and the [facility] literature.Reference ranges:60 or greater: Cpojfd75-12 ( for 3 consecutive months): Chronic kidney disease 15 or less: Kidney failureD[facility] The University of TexasGlucose abmhviqwkfg7543-24-46 23:09:00* Test Item Value Reference Range Interpretation Comments Glucose Level (test code = DGA4735) 102 74-118 [facility] calcium measurement (mass/volume)2019-09-07 23:09:00* Test Item Value Reference Range Interpretation Comments Calcium Level (test code = 38323-3) 8.2 8.4-10.2 [facility] plasma total bilirubin measurement (mass/volume)2019-09-07 23:09:00* Test Item Value Reference Range Interpretation Comments Total Bilirubin (test code = 1975-2) 0.7 0.2-1.2 [facility] TexasFluoroscopic procedure less than one hour vftigmmd3230-12-98 23:09:00* Test Item Value Reference Range Interpretation Comments Aspartate Amino Transf (AST/SGOT) (test code = Aspartate Amino Transf (AST/SGOT)) 51 5-34 [facility] alanine aminotransferase measurement (enzymatic activity/volume)2019-09-07 23:09:00* Test Item Value Reference Range Interpretation Comments Alanine Aminotransferase (ALT/SGPT) (test code = 1742-6) 32 0-55 [facility] protein measurement (mass/volume)2019-09-07 23:09:00* Test Item Value Reference Range Interpretation Comments Total Protein (test code = 2885-2) 6.3 6.5-8.1 [facility] albumin measurement (mass/volume)2019-09-07 23:09:00* Test Item Value Reference Range Interpretation Comments Albumin (test code = 1751-7) 3.8 3.5-5.0 [facility] TexasPlasma globulin measurement (mass/volume) 2019-09-07 23:09:00* Test Item Value Reference Range Interpretation Comments Globulin (test code = 48620-2) 2.5 2.3-3.5 [facility] albumin/globulin mass yevbo5635-30-96 23:09:00* Test Item Value Reference Range Interpretation Comments Albumin/Globulin Ratio (test code = 1759-0) 1.5 0.8-2.0 [facility] alkaline phosphatase measurement (enzymatic activity/volume)2019-09-07 23:09:00* Test Item Value Reference Range Interpretation Comments Alkaline Phosphatase (test code = 6768-6) 76 40-150 [facility] plasma creatine kinase measurement (enzymatic activity/volume)2019-09-07 23:09:00* Test Item Value Reference Range Interpretation Comments Creatine Kinase (test code = 2157-6) 433 29-168 [facility] plasma creatine kinase MB measurement (mass/volume)2019-09-07 23:09:00* Test Item Value Reference Range Interpretation Comments Creatine Kinase MB (test code = 52348-9) 3.10 0-4.3 [facility] plasma troponin i.cardiac measurement (mass/volume)2019-09-07 23:09:00* Test Item Value Reference Range Interpretation Comments Troponin I (test code = 81133-5) < 0.05 0.0-0.40 [facility] ethanol measurement (mass/volume)2019-09-07 23:09:00* Test Item Value Reference Range Interpretation Comments Ethyl Alcohol Level (test code = 5643-2) 210.8 0.0-10.0 [facility] TexasCHEST SINGLE (PORTABLE)2019-09-07 20:49:00 [place] [address] Patient Name: DORIAN DUBON MR #: [id number] : 1970 Age/Sex: 48/F Req #: [id number] Adm Physician: Ordered by: AMINAH GALLEGOS DO Report #: [id number] Location: ER Room/Bed: Procedure: [id number] DX/CHEST SIN GLE (PORTABLE) Exam Date: 09/07/19 Exam Time: 2014 REPORT STATUS: Signed Examination: Single AP view of the chest. COMPARISON: [...] on 09/07/192049 COPY TO: AMINAH GALLEGOS DO URINALYSIS [id number] 23:42:00* Test Item Value Reference Range Interpretation Comments UA COLOR (test code = COLU) Light-Yellow YELLOW UA APPEARANCE (test code = APPU) CLEAR CLEAR UA GLUCOSE DIPSTICK (test code = DGLUU) NEGATIVE mg/dL NEGATIVE UA BILIRUBIN DIPSTICK (test code = BILU) NEGATIVE mg/dL NEGATIVE UA KETONE DIPSTICK (test code = KETU) NEGATIVE mg/dL NEGATIVE UA SPECIFIC GRAVITY (test code = SGU) 1.021 1.001-1.035 UA BLOOD DIPSTICK (test code = GERA) 0.2 mg/dL (2+) mg/dL NEGATIVE A UA PH DIPSTICK (test code = DOUG) 7.0 5.0-8.0 UA PROTEIN DIPSTICK (test code = PROU) 10 (Trace) mg/dL NEGATIVE A UA UROBILINIOGEN DIPSTICK (test code = URO) Normal mg/dL NEGATIVE UA NITRITE DIPSTICK (test code = YRIS) NEGATIVE NEGATIVE UA LEUKOCYTE ESTERASE W REFLEX (test code = LEUUR) NEGATIVE Sam/uL NEGATIVE UA WBC (test code = WBCU) 0-5 per HPF 0-5 UA RBC (test code = RBCU) 6-10 #/HPF 0-5 A UA EPITHELIAL CELLS (test code = EPIU) None seen per HPF FEW UA BACTERIA (test code = BACU) MODERATE #/HPF NONE A UA MUCUS (test code = MUCU) FEW #/LPF FEW Urine Source? Clean CatchDRUGS OF ABUSE SCREEN [id number] 23:42:00* Test Item Value Reference Range Interpretation Comments URN COCAINE (test code = COCAURN) NEGATIVE <300 ng/mL URN CANNABINOIDS (test code = CANNABURN) POSITIVE <50 ng/mL A This test provides only a preliminary test result. A morespecific alternate chemical method must be used in order toobtain a confirmed analytical result. Gas chromatography/mass spectrometry (GC/MS) is thepreferred confirmatory method. Other chemical confirmationmethods are available. Clinical consideration and professional judgment should be applied to any drug of abusetest result, particularly when preliminary positive resultsare used.Unconfirmed screening results must not be used fornon-medical purposes (e.g., employment testing, legaltesting). URN AMPHETAMINE (test code = AMPHETURN) NEGATIVE <1000 ng/mL URN BARBITURATE (test code = BARBITURN) NEGATIVE <200 ng/mL URN BENZODIAZEPINE (test code = BENZOURN) NEGATIVE <200 ng/mL URN OPIATES (test code = OPIATURN) NEGATIVE <300 ng/mL URN PHENCYCLIDINE (PCP) (test code = PHENCURN) NEGATIVE <25 ng/ mL URN METHADONE (test code = METHAURN) NEGATIVE <300 ng/mL Urine Source? Clean CatchURINALYSIS [id number] 23:22:00* Test Item Value Reference Range Interpretation Comments UA COLOR (test code = COLU) Light-Yellow YELLOW UA APPEARANCE (test code = APPU) CLEAR CLEAR UA GLUCOSE DIPSTICK (test code = DGLUU) NEGATIVE mg/dL NEGATIVE UA BILIRUBIN DIPSTICK (test code = BILU) NEGATIVE mg/dL NEGATIVE UA KETONE DIPSTICK (test code = KETU) NEGATIVE mg/dL NEGATIVE UA SPECIFIC GRAVITY (test code = SGU) 1.021 1.001-1.035 UA BLOOD DIPSTICK (test code = GERA) 0.2 mg/dL (2+) mg/dL NEGATIVE A UA PH DIPSTICK (test code = DOUG) 7.0 5.0-8.0 UA PROTEIN DIPSTICK (test code = PROU) 10 (Trace) mg/dL NEGATIVE A UA UROBILINIOGEN DIPSTICK (test code = URO) Normal mg/dL NEGATIVE UA NITRITE DIPSTICK (test code = YRIS) NEGATIVE NEGATIVE UA LEUKOCYTE ESTERASE W REFLEX (test code = LEUUR) NEGATIVE Sam/uL NEGATIVE UA WBC (test code = WBCU) 0-5 per HPF 0-5 UA RBC (test code = RBCU) 6-10 #/HPF 0-5 A UA EPITHELIAL CELLS (test code = EPIU) None seen per HPF FEW UA BACTERIA (test code = BACU) MODERATE #/HPF NONE A UA MUCUS (test code = MUCU) FEW #/LPF FEW Urine Source? Clean CatchDRUGS OF ABUSE SCREEN [id number] 23:22:00* Test Item Value Reference Range Interpretation Comments URN COCAINE (test code = COCAURN) <300 ng/mL URN CANNABINOIDS (test code = CANNABURN) <50 ng/mL URN AMPHETAMINE (test code = AMPHETURN) <1000 ng/mL URN BARBITURATE (test code = BARBITURN) <200 ng/mL URN BENZODIAZEPINE (test code = BENZOURN) <200 ng/mL URN OPIATES (test code = OPIATURN) <300 ng/mL URN PHENCYCLIDINE (PCP) (test code = PHENCURN) <25 ng/ mL URN METHADONE (test code = METHAURN) <300 ng/mL Urine Source? Clean CatchURINALYSIS [id number] 23:17:00* Test Item Value Reference Range Interpretation Comments UA COLOR (test code = COLU) Light-Yellow YELLOW UA APPEARANCE (test code = APPU) CLEAR CLEAR UA GLUCOSE DIPSTICK (test code = DGLUU) NEGATIVE mg/dL NEGATIVE UA BILIRUBIN DIPSTICK (test code = BILU) NEGATIVE mg/dL NEGATIVE UA KETONE DIPSTICK (test code = KETU) NEGATIVE mg/dL NEGATIVE UA SPECIFIC GRAVITY (test code = SGU) 1.021 1.001-1.035 UA BLOOD DIPSTICK (test code = GERA) 0.2 mg/dL (2+) mg/dL NEGATIVE A UA PH DIPSTICK (test code = DOUG) 7.0 5.0-8.0 UA PROTEIN DIPSTICK (test code = PROU) 10 (Trace) mg/dL NEGATIVE A UA UROBILINIOGEN DIPSTICK (test code = URO) Normal mg/dL NEGATIVE UA NITRITE DIPSTICK (test code = YRIS) NEGATIVE NEGATIVE UA LEUKOCYTE ESTERASE W REFLEX (test code = LEUUR) NEGATIVE Sam/uL NEGATIVE UA WBC (test code = WBCU) per HPF 0-5 UA RBC (test code = RBCU) per HPF 0-5 UA EPITHELIAL CELLS (test code = EPIU) per HPF Few UA BACTERIA (test code = BACU) per HPF NONE Urine Source? Clean CatchDRUGS OF ABUSE SCREEN [id number] 23:17:00* Test Item Value Reference Range Interpretation Comments URN COCAINE (test code = COCAURN) <300 ng/mL URN CANNABINOIDS (test code = CANNABURN) <50 ng/mL URN AMPHETAMINE (test code = AMPHETURN) <1000 ng/mL URN BARBITURATE (test code = BARBITURN) <200 ng/mL URN BENZODIAZEPINE (test code = BENZOURN) <200 ng/mL URN OPIATES (test code = OPIATURN) <300 ng/mL URN PHENCYCLIDINE (PCP) (test code = PHENCURN) <25 ng/ mL URN METHADONE (test code = METHAURN) <300 ng/mL Urine Source? Clean Catch- XR CHEST 1 [id number] 22:36:00 FAX: Danya Sutton [phone] [place]: [address] St: REG Name: DORIAN KNAPP [facility] : [birth year] Age/S: 48/F [address] Unit #: [id number] Loc: [place] [address] Phys: Danya Alejandro MD Acct: [id number] Dis Date: Status: REG ER PHONE #: [phone] Exam Date: 09/06/20192204 FAX #: [phone] Reason: CHEST PAIN EXAMS: CPT CODE: [id number] XR CHEST 1 V 88844 LOCATION: H43 EXAM: - XR CHEST 1 V HISTORY: CHEST PAIN TECHNIQUE: Frontal view of the chest. COMPARISON: 11/01/2017 FINDINGS: The lungs are adequately inflated and clear. No evidence of pne umothorax or pleural effusion. Normal heart size. Mediastinal con tours are within normal limits. Partially visualized postsurgical changes noted at the lower cervical spine. IMPRESSION: No evidence of acute cardiopulmonary disease. at 2236 Reported and signed by: Bruna Carty M.D. CC: Danya Alejandro MD Technologist: JOSESITO RM; Zachery Landry De [place] R panchito, RT(R Trnscrd Date/Time/By: 09/06/2019 (8) : By: [email or web address] Orig Print D/T: S: 09/06/2019 (3528) PAGE 1 Signed Report B-TYPE NATRIURETIC [id number] 21:52:00* Test Item Value Reference Range Interpretation Comments B-TYPE NATRIURETIC PEPTIDE (test code = BNP) 30.77 pgram/mL 0-100 N BASIC METABOLIC [id number] 21:34:00* Test Item Value Reference Range Interpretation Comments SODIUM (test code = NA) 145 mmol/L 136-145 N POTASSIUM (test code = K) 3.2 mmol/L 3.5-5.1 L CHLORIDE (test code = CL) 108.0 mmol/L 98-107 H CARBON DIOXIDE (test code = CO2) 23.0 mmol/L 21-32 N ANION GAP (test code = GAP) 17.2 10-20 N GLUCOSE (test code = GLU) 111 mg/dL 74-106 H BLOOD UREA NITROGEN (test code = BUN) 11 mg/dL 7-18 N GLOMERULAR FILTRATION RATE (test code = GFR) > 60 mL/min >=60 Estimated GFR by using Modified MDRD formula.Chronic kidney disease is defined as either kidney damageor GFR <60 mL/min/1.73 m2 for >3 months. CREATININE (test code = CREAT) 0.80 mg/dL 0.55-1.02 N Note change in reference range due to change in reagent. BUN/CREATININE RATIO (test code = BUN/CREA) 13.0 10-20 N CALCIUM (test code = CA) 9.0 mg/dL 8.5-10.1 N HEPATIC FUNCTION [id number] 21:34:00* Test Item Value Reference Range Interpretation Comments TOTAL PROTEIN (test code = PROT) 7.7 gram/dL 6.4-8.2 N ALBUMIN (test code = ALB) 4.0 g/dL 3.4-5.0 N GLOBULIN (test code = GLOB) 3.7 gram/dL 2.7-4.2 N ALBUMIN/GLOBULIN RATIO (test code = A/G) 1.1 0.75-1.50 N BILIRUBIN TOTAL (test code = BILT) 0.50 mg/dL 0.0-1.0 N BILIRUBIN DIRECT (test code = BILD) 0.15 mg/dL 0.0-0.20 N SGOT/AST (test code = AST) 26 IUnit/L 15-37 N SGPT/ALT (test code = ALT) 26 IUnit/L 12-78 N ALKALINE PHOSPHATASE TOTAL (test code = ALKP) 90 IUnit/L 45-117 N Note change in reference range due to change in reagent. [id number] 21:34:00* Test Item Value Reference Range Interpretation Comments LIPASE (test code = LIP) 107 U/L 73.0-393.0 N [id number] 21:34:00* Test Item Value Reference Range Interpretation Comments MAGNESIUM (test code = MAG) 2.3 mg/dL 1.8-2.4 N HCG SERUM [id number] 21:34:00* Test Item Value Reference Range Interpretation Comments HCG SERUM QUAL (test code = HCGQL) NEGATIVE NEGATIVE This HCGQL test is NOT applicable for MALE patients.Check with nurse about probable order error.If Tumor Marker Test needed, nurse should order test "HCGTU"(Test #[id number]) [id number] 21:34:00* Test Item Value Reference Range Interpretation Comments TROPONIN-I (test code = TROPI) <0.015 ng/mL 0-0.045 N [id number] 21:34:00* Test Item Value Reference Range Interpretation Comments ALCOHOL (test code = ALC) 265 mg/dL 0.0-3.0 H -- INTERPRETIVE DATA NOTE: POSITIVE SCREENING RESULTS SHOULD BE CONSIDERED PRESUMPTIVE.WHEN COLLECTED FOR MEDICAL PURPOSES ONLY. SPECIMEN WILL NOTBE COLLECTED BY CHAIN OF CUSTODY.IF A CONFIRMATION OF POSITIVE RESULTS IS DESIRED, ACONFIRMATION TEST MUST BE REQUESTED BY THE PHYSICIAN AT ANADDITIONAL CHARGE TO THE PATIENT. PROTHROMBIN [id number] 21:32:00* Test Item Value Reference Range Interpretation Comments PROTHROMBIN TIME PATIENT (test code = PTP) 10.2 seconds 9.0-14.0 N INTERNATIONAL NORMAL RATIO (test code = INR) 0.9 0.8-1.2 N The therapeutic range for oral anticoagulant therapy formost indications is an international normalized ratio (INR)of between 2.0 and 3.0. The recommended therapeutic INRrange for various clinical situations is listed below: Clinical Situation INR range Pulmonary e mbolism treatment (2.0-3.0)Venous thrombosis treatmentVenous thrombosis prophylaxis (high risk surgery)Prevention of systemic embolism from: Acute myocardial infarction Valvular heart disease Atrial fibrillation Mechanical prosthetic heart valves (2.5-3.5) IS PATIENT ON ANTICOAGULANTS? NTHROMBOPLASTIN TIME [id number] 21:32:00* Test Item Value Reference Range Interpretation Comments THROMBOPLASTIN TIME PARTIAL (test code = PTT) 33.8 seconds 23.0-37. 0 N IS PATIENT ON ANTICOAGULANTS? [id number] 21:29:00* Test Item Value Reference Range Interpretation Comments ACETAMINOPHEN (test code = ACET) < 10 mcg/mL 10-30 L A RANGE OF 10-30 mcg/mL IS A THERAPEUTIC RANGE. TOXIC CONCENTRATIONS: >150 mcg/mL AT 4 HOURS AFTER INGESTION >= 50 mcg/mL AT 12 HOURS AFTER INGESTION [id number] 21:29:00* Test Item Value Reference Range Interpretation Comments SALICYLATE (test code = DIANN) < 1.7 mg/dL 2.8-20.0 L BASIC METABOLIC [id number] 21:23:00* Test Item Value Reference Range Interpretation Comments SODIUM (test code = NA) 145 mmol/L 136-145 N POTASSIUM (test code = K) 3.2 mmol/L 3.5-5.1 L CHLORIDE (test code = CL) 108.0 mmol/L 98-107 H CARBON DIOXIDE (test code = CO2) mmol/L 21-32 ANION GAP (test code = GAP) 10-20 GLUCOSE (test code = GLU) mg/dL 74-106 BLOOD UREA NITROGEN (test code = BUN) mg/dL 7-18 GLOMERULAR FILTRATION RATE (test code = GFR) mL/min >=60 CREATININE (test code = CREAT) mg/dL 0.55-1.02 BUN/CREATININE RATIO (test code = BUN/CREA) 10-20 CALCIUM (test code = CA) mg/dL 8.5-10.1 HEPATIC FUNCTION [id number] 21:23:00* Test Item Value Reference Range Interpretation Comments TOTAL PROTEIN (test code = PROT) gram/dL 6.4-8.2 ALBUMIN (test code = ALB) g/dL 3.4-5.0 GLOBULIN (test code = GLOB) gram/dL 2.7-4.2 ALBUMIN/GLOBULIN RATIO (test code = A/G) 0.75-1.50 BILIRUBIN TOTAL (test code = BILT) mg/dL 0.0-1.0 BILIRUBIN DIRECT (test code = BILD) mg/dL 0.0-0.20 SGOT/AST (test code = AST) IUnit/L 15-37 SGPT/ALT (test code = ALT) IUnit/L 12-78 ALKALINE PHOSPHATASE TOTAL (test code = ALKP) IUnit/L 45-117 [id number] 21:23:00* Test Item Value Reference Range Interpretation Comments LIPASE (test code = LIP) U/L 73.0-393.0 [id number] 21:23:00* Test Item Value Reference Range Interpretation Comments MAGNESIUM (test code = MAG) mg/dL 1.8-2.4 HCG SERUM [id number] 21:23:00* Test Item Value Reference Range Interpretation Comments HCG SERUM QUAL (test code = HCGQL) NEGATIVE NEGATIVE This HCGQL test is NOT applicable for MALE patients.Check with nurse about probable order error.If Tumor Marker Test needed, nurse should order test "HCGTU"(Test #550.35203) [id number] 21:23:00* Test Item Value Reference Range Interpretation Comments TROPONIN-I (test code = TROPI) ng/mL 0-0.045 [id number] 21:23:00* Test Item Value Reference Range Interpretation Comments ALCOHOL (test code = ALC) mg/dL 0-3 BASIC METABOLIC [id number] 21:22:00* Test Item Value Reference Range Interpretation Comments SODIUM (test code = NA) mmol/L 136-145 POTASSIUM (test code = K) mmol/L 3.5-5.1 CHLORIDE (test code = CL) mmol/L 98-107 CARBON DIOXIDE (test code = CO2) mmol/L 21-32 ANION GAP (test code = GAP) 10-20 GLUCOSE (test code = GLU) mg/dL 74-106 BLOOD UREA NITROGEN (test code = BUN) mg/dL 7-18 GLOMERULAR FILTRATION RATE (test code = GFR) mL/min >=60 CREATININE (test code = CREAT) mg/dL 0.55-1.02 BUN/CREATININE RATIO (test code = BUN/CREA) 10-20 CALCIUM (test code = CA) mg/dL 8.5-10.1 HEPATIC FUNCTION [id number] 21:22:00* Test Item Value Reference Range Interpretation Comments TOTAL PROTEIN (test code = PROT) gram/dL 6.4-8.2 ALBUMIN (test code = ALB) g/dL 3.4-5.0 GLOBULIN (test code = GLOB) gram/dL 2.7-4.2 ALBUMIN/GLOBULIN RATIO (test code = A/G) 0.75-1.50 BILIRUBIN TOTAL (test code = BILT) mg/dL 0.0-1.0 BILIRUBIN DIRECT (test code = BILD) mg/dL 0.0-0.20 SGOT/AST (test code = AST) IUnit/L 15-37 SGPT/ALT (test code = ALT) IUnit/L 12-78 ALKALINE PHOSPHATASE TOTAL (test code = ALKP) IUnit/L 45-117 [id number] 21:22:00* Test Item Value Reference Range Interpretation Comments LIPASE (test code = LIP) U/L 73.0-393.0 [id number] 21:22:00* Test Item Value Reference Range Interpretation Comments MAGNESIUM (test code = MAG) mg/dL 1.8-2.4 HCG SERUM [id number] 21:22:00* Test Item Value Reference Range Interpretation Comments HCG SERUM QUAL (test code = HCGQL) NEGATIVE NEGATIVE This HCGQL test is NOT applicable for MALE patients.Check with nurse about probable order error.If Tumor Marker Test needed, nurse should order test "HCGTU"(Test #550.83541) [id number] 21:22:00* Test Item Value Reference Range Interpretation Comments TROPONIN-I (test code = TROPI) ng/mL 0-0.045 [id number] 21:22:00* Test Item Value Reference Range Interpretation Comments ALCOHOL (test code = ALC) mg/dL 0-3 CBC W/O [id number] 21:21:00* Test Item Value Reference Range Interpretation Comments WHITE BLOOD CELL (test code = WBC) 10.7 K/mm3 4.5-12.5 N RED BLOOD CELL (test code = RBC) 4.51 mill/mm3 3.7-5.2 N HEMOGLOBIN (test code = HGB) 14.4 gram/dL 11.5-15.5 N HEMATOCRIT (test code = HCT) 43.0 % 36.0-46.0 N MEAN CELL VOLUME (test code = MCV) 95.3 fL 80-98 N MEAN CELL HGB (test code = MCH) 31.9 picogram 27.0-33.0 N MEAN CELL HGB CONCETRATION (test code = MCHC) 33.5 gram/dL 33.0-36. 0 N RED CELL DISTRIBUTION WIDTH (test code = RDW) 14.2 % 11.6-16. 2 N PLATELET COUNT (test code = PLT) 334 K/mm3 150-450 N MEAN PLATELET VOLUME (test code = MPV) 10.1 fL 6.7-11.0 N CBC W/O [id number] 21:19:00* Test Item Value Reference Range Interpretation Comments WHITE BLOOD CELL (test code = WBC) K/mm3 4.5-12.5 RED BLOOD CELL (test code = RBC) mill/mm3 3.7-5.2 HEMOGLOBIN (test code = HGB) 14.4 gram/dL 11.5-15.5 N HEMATOCRIT (test code = HCT) 43.0 % 36.0-46.0 N MEAN CELL VOLUME (test code = MCV) fL 80-98 MEAN CELL HGB (test code = MCH) picogram 27.0-33.0 MEAN CELL HGB CONCETRATION (test code = MCHC) gram/dL 33.0-36. 0 RED CELL DISTRIBUTION WIDTH (test code = RDW) % 11.6-16. 2 PLATELET COUNT (test code = PLT) K/mm3 150-450 MEAN PLATELET VOLUME (test code = MPV) fL 6.7-11.0 MRI LUMBAR SPINE W/O [id number] 00:52:18IMPRESSION: 1. Normal conus medullaris and cauda equina nerve roots.2. Mild degenerative changes of the disc and facet joints throughoutthe lumbar spine without significant spinal canal or foraminal stenosis.No evidence of nerve root compression.3. Subtle left-sided curvature. Dictated By: Jomar Grady MD, 06/04/2019 8:11 AM I have reviewed the study and agree with the findings in this report. Signed By: Karis Silva MD, 06/05/2019 12:52 AM Interface, Rad/Mammog In - 06/05/2019 12:57 AM CSTExam: MRI of the lumbar spine without contrastHistory: Back pain, cauda equina syndrome suspected Radiculopathy Comparison studies: NoneTechnique: Sagittal and axial T2, Sagittal T1 and Inversion recovery, axial T2 andspin dens ity oblique.FINDINGS:Number of non-rib bearing lumbar vertebral bodies: 5.Alignm ent: Normal lordosis.Subtle left-sided curvature.Soft tissues: No signal abnorma lities.Posterior paraspinal muscles: Well preserved. No signal abnormalities.Con us medullaris:Normal, ends at T12-L1.Cauda equina: No masses or arachnoiditis.V ertebrae: Normal in height and signal.No infection or neoplasm.Degenerative lisa ges:Mildly degenerated discs from L1-2 to L5-S1 with loss of normal P7ketiwiG8-Z 2: Minimal symmetric disc bulge without canal or foraminal stenosis.Patent spina l canal and foramina.L2-L3: Mild decreased disc height, asymmetric right disc bu lge and bilateralfacet arthroses. Minimal canal narrowing. No foraminal stenosis .L3-L4Mild asymmetric right disc bulge and bilateral facet arthroses. Nosignific ant canal or foraminal stenoses.L4-L5: Mild bilateral facet arthroses. No signif icant canal or foraminalstenoses.L5-S1: Mild facet arthrosis. No spinal canal or foraminal stenosis.IMPRESSIONIMPRESSION:1. Normal conus medullaris and cauda e quina nerve roots.2. Mild degenerative changes of the disc and facet joints thr oughoutthe lumbar spine without significant spinal canal or foraminal stenosis.N o evidence of nerve root compression.3. Subtle left-sided curvature.Dictated By : Jomar Grady MD, 06/04/2019 8:11 AMI have reviewed the study and agree with the f indings in this report.Signed By: Karis Silva MD, 06/05/2019 12:52 [facility] [id number] 16:18:40Karl Dutton NP 06/03/2019 4:28 PMSplint ApplicationPerformed by: Karl Dutton NPAuthorized by: Karl Dutton NP Consent: Consent obtained: Verbal Consent given by: Patient Risks discussed: Skin discoloration, distal paresthesia, pain and swelling Alternatives discussed: ReferralPre-procedure details: Sensation: Normal Skin color: PinkProcedure details: Laterality: Left Location: Ankle Ankle: L ankle Supplies used: Aircast and James wrap.Post-procedure details: Pain: Unchanged Sensation: Normal Skin color: [place] Patient tolerance of procedure: Tolerated well, no immediate complicationsHoujamaica plain [facility] medical center MethodistXR Ankle 3+ Vw [id number] 15:50:13Hm Interface, Radiology Results 06/03/2019 3:53 PM CSTEXAMINATION: XR ANKLE 3 VW LEFTCLINICAL HISTORY: Ankle pain initial examCOMPARISON: No Pr iorIMPRESSION:1.The bones, soft tissues and joints are unremarkable.[facility]-[id number] YZFHouston MethodistXR Foot 3+ Vw [id number] 15:39:11Hm Interface, Radiology Results 06/03/2019 3:42 PM CSTEXAMINATION: XR FOOT 3 VW LEFTCLINICAL HISTORY: Foot pain chronic etiol unknown initial examCOMPARISON: None.TECHNIQUE: 3 views of the left foot obtained.IMPRESSION:Mi ld degenerative spurring at the ankle. Tiny plantar calcaneal spur. No acute fra cture or dislocation or periarticular erosion identified. [facility]-OG37SLRSXklopwk MethodistBlood culture, aerobic & [id number] 19:03:05* Test Item Value Reference Range Interpretation Comments Blood culture isolate (test code = 600-7) No growth after 5 days of incubation. Specimen InformationSpecimen Source: BloodSpecimen Site: LFT HAND [place] MethodistStrep screen [id number] 19:34:27* Test Item Value Reference Range Interpretation Comments Strep screen culture isolate (test code = 2246) No bet a hemolytic Streptococci isolated Specimen Information Specimen Source: ThroatSpecimen Site: Not otherwise specified [place] MethodistLactic acid [id number] 04:35:13* Test Item Value Reference Range Interpretation Comments Lactic acid (test code = 50905-4) 1.8 mmol/L 0.5-2.2 [facility], SEPSIS - Now and repeat 2x every 3 hours 2019-04-16 00:26:13* Test Item Value Reference Range Interpretation Comments Lactic acid (test code = 59242-0) 2.7 mmol/L 0.5-2.2 H Results called to and read back by Ernesto Cordero/TAMRA at 04/16/2019 00:26 by ln. Lab Interpretation (test code = 48186-9) Abnormal [place] MethodistRespiratory pathogen [id number] 21:24:52Respiratory pathogen panelNegative for all pathogens tested:Negative for AdenovirusNegative for Coronavirus QQE8Wgnuyesy for Coronavirus TU99Qvormopd for Coronavirus 229ENegative for Coronavirus ZB07Zljjglcx for Human MetapneumovirusNegative for Rhinovirus/EnterovirusNegative for Influenza ANegative for Influenza A/H1N egative for Influenza A/C1Tfhttrzi for Influenza A/H1-2009Negative for Influenza BNegative for Parainfluenza Virus 1Negative for Parainfluenza Virus 2Negative f or Parainfluenza Virus 3Negative for Parainfluenza Virus 4Negative for Respirato ry Syncytial VirusNegative for Bordetella pertussisNegative for Chlamydophila pn eumoniaeNegative for Mycoplasma pneumoniaeThis real-time PCR assay detects the p resence of nucleic acids (RNA or DNA) for the respiratory pathogens listed. A r esult of "Not-detected" does not exclude the possibility of the presence of one or more pathogens at concentrations less than the detectable limits of the assay . Comment: Specimen InformationSpecimen Source: NasopharyngealSpecimen Site: Not otherwise specified [facility] MethodistSepsis Clinical [id number] 16:32:18Lucia Wilburn NP 04/15/2019 4:42 PMSource: Respiratory IVF Bolus: 500 cc bolus/ additional resucitation in process IVF Maintenance: LR at 100/hr Blood Cultures: pending UA/UCX: n/a Sputum CX: RPP pending Lactic Acid: 3.5, continue to trend Anti-infective first dose: Azith/Rocephin Anti-infective scheduled dose: Azith/Rocephin All measures in place for antibiotic coverage, continue trend lactic acid. Lingular PNA noted on chest xray. Discussed with Em[facility] [employer], additional fluid resuscitation being added. Defer further management to primary team. Patient appears in no acute distress at this time. Sepsis Clinical AssessmentPerformed by: Lucia Wilburn NPAuthorized by: Lucia Wilburn NP Sepsis Clinical Assessment General Assessment InformationCurrent sepsis score: 0 On comfort care?: No If score does not worsen, snooze alerts until: 04/15/2019 04:32 [facility] SIRS Criteria Heart rate > 90 bpm due to acute condition Organ Dysfunction Lactate > 2.0 mmol/L due to acute condition Sepsis AssessmentClinical suspicion of infection? YesTime of suspicion of infection: 04/15/2019 4:33 PMClinical suspicion of sepsis?: YesSepsis staging: Sepsis Sepsis protocol started? YesWhere did the protocol start?: ED StartedClinical disposition: Remain in room Suspected Type/Source of InfectionSuspected Type of Infection: BacterialSuspected Source of Infection: Pneumonia Other Acute DiagnosesOther Acute Diagnosis: Pneumonia Focus ExamSepsis focus exam performed at 04/15/2019 4:33 PM Cardiopulmonary ExamHeart: Regular rate & rhythmLeft Lung: DecreasedRight Lung: Decreased Capillary RefillCapillary refill rate: Brisk, < 3 s Peripheral PulsesLeft dorsalis pedis: NormalRight dorsalis pedis: Normal Left radial: NormalRight radial: Normal Skin ExamSkin exam: Skin color normal Sepsis Related VitalsHeart rate: 92Temperature: (!) 97.3 FRespiratory rate: 17Blood pressure: 90/54Altered mental status: WBC (k/uL) Date Value 04/15/2019 10.1 02/04/2019 9.2 Weight-Based Fluid Bolus CalculationThe recommended weight-based bolus volume: 1,632 mL (dosing weight)Please refer to the MAR for actual med/fluid administrations.[place] MethodistCreatine kinase, total (CPK)2019-04-15 16:01:13* Test Item Value Reference Range Interpretation Comments Creatine kinase (test code = 2157-6) 63 U/L 26-192 [place] MethodistGroup A strep, rapid [id number] 09:45:12* Test Item Value Reference Range Interpretation Comments Group A strep, rapid antigen result (test code = 64444 79) Negative for Group A Streptococcus antigen. Specimen Informat ionSpecimen Source: ThroatSpecimen Site: Not otherwise specified [place] MethodistInfluenza antigen test, reflex negative to [id number] 09:39:46* Test Item Value Reference Range Interpretation Comments Influenza antigen (test code = 12245-0) Negative for Influenza A/B antigen. Specimen InformationSpecimen Source: NasopharyngealSpecimen Site: Not otherwise specified [place] MethodistXR Chest 2 [id number] 09:34:43Hm Interface, Radiology Results - 04/15/2019 9:37 AM CSTEXAMINATION: XR CHEST 2 VWCLINICAL HISTORY: Cough new onsetCOMPARISON: August 18, 2017 chestIMPRESSION:Moderate lingular pneumoniaPreviously noted right lower lobe pneumonia has clearedNo congestion effusion or pneumothoraxCardiomediastinal silhouette normal size.Cervical fixator as on previousTwo view chest.STJO-[id number] Methodist Comprehensive metabolic [id number] 09:27:30* Test Item Value Reference Range Interpretation Comments Sodium (test code = 2951-2) 135 135- 150 mEq/L Potassium (test code = 2823-3) 4.2 3.5- 5.0 mEq/L Chloride (test code = 2075-0) 99 98- 112 mEq/L CO2 (test code = 2027-9) 22 mmol/L 24-31 L Anion gap (test code = 79015-3) 14@ANIO 7- 15 mEq/L BUN (test code = 3094-0) 8 mg/dL 7-18 Creatinine (test code = 2160-0) 0.90 mg/dL 0.5-0.9 Glucose (test code = 2345-7) 93 mg/dL 65-100 Calcium (test code = 52008-0) 9.6 mg/dL 8.3-10.2 Protein (test code = 2885-2) 7.4 g/dL 6.3-8.3 Albumin (test code = 1751-7) 3.7 g/dL 3.5-5 A/G ratio (test code = 1759-0) 1.0 0.7-3.8 Alkaline phosphatase (test code = 6768-6) 77 U/L 0-104 AST (test code = 1920-8) 18 U/L 10-35 ALT (test code = 1742-6) 14 U/L 5-50 Total bilirubin (test code = 1975-2) 1.3 mg/dL 0.2-1.2 H Lab Interpretation (test code = 26196-5) Abnormal [place] MethodistEstimated [id number] 09:27:29* Test Item Value Reference Range Interpretation Comments Estimated GFR (test code = 5488) 74 mL/min/1.73 m2 Catergory Units InterpretationG1 >=90 Normal or highG2 60-89 Mildly vytnieixgD4m 45-59 Mildly to moderately wnczqsvocT1n 30-44 Moderately to severely decreasedG4 15-29 Severely decreasedG5 <15 Kidney failureThe eGFR was calculated using the Chronic Kidney Disease Epidemiology Collaboration (CKD-EPI) equation. Interpretation is based on recommendations of the National Kidney Foundation-Kidney Disease Outcomes Quality Initiative (NKF-KDOQI) published in 2014. [place] MethodistCBC with platelet and xahczdpsdyiw7321-53-01 09:12:16* Test Item Value Reference Range Interpretation Comments WBC (test code = 51740-1) 10.1 4.2- 11.0 k/uL RBC (test code = 86721-5) 4.50 m/uL 4.04-5.86 HGB (test code = 718-7) 14.2 g/dL 11.5-15.3 HCT (test code = 4544-3) 42.7 % 34-45 MCV (test code = 787-2) 94.9 fL 80-98 MCH (test code = 785-6) 31.6 pg 27-34 MCHC (test code = 786-4) 33.3 g/dL 31.5-36.5 RDW - SD (test code = 25140-6) 44.8 fL 37-51 MPV (test code = 51435-0) 9.8 fL 7.4-10.4 Platelet count (test code = 63833-8) 320 150- 400 k/uL Nucleated RBC (test code = 47845-7) 0.00 /100 WBC Neutrophils (test code = 99751-4) 68.4 % 36-66 H Lymphocytes (test code = 92800-1) 17.8 % 24-44 L Monocytes (test code = 00105-8) 9.7 % 0-6 H Eosinophils (test code = 90556-4) 3.0 % 0-6 Basophils (test code = 08063-2) 0.7 % 0-1.2 Immature granulocytes (test code = 40142-2) 0.4 % 0-1 Lab Interpretation (test code = 75466-5) Abnormal [facility] Lumbar Spine Wo [id number] 22:56:56Hm Interface, Radiology Results 02/04/2019 11:00 PM CDTEXAMINATION: MRI LUMBAR SPINE WO CONTRASTCLINICAL HISTORY: subacute back pain reports legs gave out COMPARISON: CT lumbar spine January 03, 2019FINDINGS: There is no fracture demonstrated.L5-S1: There is no significant abnormality in the disc. There are mild to moderate hypertrophic changes in the facet joints without stenosis.L4-5: There is no significant abnormality in the disc. There are mild hypertrophic and degenerative changes the facet joints without stenosisL3-4: There is minimal spondylosis and minimal loss of normal signal intensity in the disc. There is no stenosis.L2-3: There is moderate ventral spondylosis and some loss of normal signal intensity in the disc. There is a minimal dorsal disc bulge. There is a minimal dorsal lateral annular fissure. There is a possible minimal lateral foraminal disc protrusion on the left. There is however no foraminal stenosis.L 1-2: There is moderate ventral spondylosis. There is otherwise no significant a bnormality in the disc.Imaging of the thoracolumbar junction demonstrates no joe dence of a conus lesion.IMPRESSION:Wdvl-xn-ljqoosvg degenerative changes without spinal canal or foraminal stenosis. There is no fracture demonstrated.[facility]-[id number] 42QMXHouston [facility] Renal Stone Lfalkcsx8566-18-30 22:59:04Hm Interface, Radiology Results Incoming 01/04/2019 11:02 PM CDTExamination: CT RENAL STONE PROTOCOLClinical History: Flank pain stone disease suspectedComparison: None.Findings:CT scans are performed using radiation dose reduction techniques. Technical factors are evaluated and adjusted to ensure appropriate moderation of exposure. Automated dose management technology is applied to adjust radiation exposure while achieving a diagnostic quality image. CT imaging was performed with iterative reconstruction techniques and/or automated exposure control to reduce radiation dose.CT scan of the abdomen and pelvis was performed without intravenous contrast.The liver, spleen, pancreas, gallbladder, and adrenal gl ands are unremarkable.The kidneys are within normal limits without hydronephrosi s or urinary calculus.No bowel thickening or fat stranding is seen. No bowel dil atation is seen.Scattered colonic diverticuli are noted. No free air or fluid is seen. Urinary bladder is unremarkable.The visualized lung bases are clear.IMPRE SSION:1. Scattered colonic diverticuli without evidence of inflammation.2. Other torres no acute abnormality identified in the abdomen or pelvis.[facility]-[id number] [place] MethodistUrinalysis screen and microscopy, with reflex to culture 2019-01-04 21:18:38* Test Item Value Reference Range Interpretation Comments Specimen site (test code = 4174910) Clean catch Color, UA (test code = 5778-6) Yellow Appearance, UA (test code = 5767-9) Clear Specific gravity, UA (test code = 5811-5) 1.020 1.001-1.035 pH, UA (test code = 5803-2) 7.0 5.0-8.5 Protein, UA (test code = 03693-7) Negative Negative Glucose, UA (test code = 16144-4) Negative Negative Ketones, UA (test code = 2514-8) Negative Negative Bilirubin, UA (test code = 5770-3) Negative Negative Blood, UA (test code = 5794-3) Moderate Negative A Nitrite, UA (test code = 5802-4) Negative Negative Urobilinogen, UA (test code = 01216-0) Negative <2.0 Leukocyte esterase, UA (test code = 5799-2) Negative Negative Epithelial cells, UA (test code = 5787-7) Few /HPF WBC, UA (test code = 5821-4) None seen 0- 5 /HPF RBC, UA (test code = 74659-0) 14 0- 5 /HPF H Bacteria, UA (test code = 53785-5) Trace None seen Yeast, UA (test code = 93808-8) None seen Yeast with pseudohyphae, UA (test code = 44399-8) None seen Lab Interpretation (test code = 19906-0) Abnormal [place] MethodistCT Lumbar Spine Wo Emzctiou2064-83-96 12:11:20Hm Interface, Radiology Results 01/03/2019 12:14 PM CDTEXAMINATION: CT LUMBAR SPINE WO CONTRASTCOMPARISON: NoneCLINICAL HISTORY: Back pain 6wks conservative tx persistent sxCOMMENTS: Axial CT scan slices of the lumbar spi ne were obtained. Sagittal and coronal reconstructions were obtained.CT imaging was performed with iterative reconstruction technique and/or automated exposure control to reduce radiation dose.FINDINGS: L5-S1 shows mild disc bulge and face t disease.L4-5 shows mild facet disease ligament flavum thickening. There is mil d disc bulge.L3-4 shows minimal disc bulge and mild facet disease.L2-3 shows mil d disc bulge. There is left lateral and foraminal mild broad-based disc protrusi on. There is minimal narrowing left-sided foramen. There is mild facet disease.T he lumbar spine shows no acute fracture or subluxation.IMPRESSION: Mild degener ative change. The details can be further evaluated with MRI.[id number] [place] MethodistLDL cholesterol, ajaey8277-99-08 10:37:00* Test Item Value Reference Range Interpretation Comments LDL cholesterol, serum (test code = 2089-1) 105 mg/dL 0-99 [facility] jqaqddbnjiwg9770-32-02 10:37:00* Test Item Value Reference Range Interpretation Comments very low density lipoproteins (test code = 2548) 41 mg/dL 5-40 [facility] BaptistHDL [facility], egddo6518-76-78 10:37:00* Test Item Value Reference Range Interpretation Comments HDL cholesterol, serum (test code = 2085-9) 97 mg/dL >39 [facility] Baptisttriglyceride, serum, jqyqosu7787-43-45 10:37:00* Test Item Value Reference Range Interpretation Comments triglyceride, serum, fasting (test code = 2571-8) 207 mg/dL 0-14 9 H [facility] Baptistcholesterol, [id number] 10:37:00* Test Item Value Reference Range Interpretation Comments cholesterol, serum (test code = 2093-3) 243 mg/dL 100-199 [facility] Baptistalanine aminotransferase (SGPT), [id number] 10:37:00 * Test Item Value Reference Range Interpretation Comments alanine aminotransferase (SGPT), serum (test code = 40) 24 1/L 0-32 [facility] Baptistaspartate aminotransferase (SGOT), [id number] 10:37:00* Test Item Value Reference Range Interpretation Comments aspartate aminotransferase (SGOT), serum (test code = 39) 28 1/L 0-40 [facility] Baptistalkaline phosphatase, [id number] 10:37:00* Test Item Value Reference Range Interpretation Comments alkaline phosphatase, serum (test code = 3) 86 1/L 39-117 [facility] Baptistbilirubin, serum, [id number] 10:37:00* Test Item Value Reference Range Interpretation Comments bilirubin, serum, total (test code = 43) 1.3 mg/dL 0.0-1.2 H [facility] Healthalbumin/globulin ratio, [id number] 10:37:00* Test Item Value Reference Range Interpretation Comments albumin/globulin ratio, serum (test code = 146) 1.9 1.2-2. 2 [facility] Healthglobulin, [id number] 10:37:00* Test Item Value Reference Range Interpretation Comments globulin, serum (test code = 3059) 2.5 1.5-4.5 [facility] Healthalbumin, [id number] 10:37:00* Test Item Value Reference Range Interpretation Comments albumin, serum (test code = 2) 4.7 g/dL 3.5-5.5 [facility] Healthprotein, total, [id number] 10:37:00* Test Item Value Reference Range Interpretation Comments protein, total, serum (test code = 36) 7.2 g/dL 6.0-8.5 [facility] Healthcalcium, [id number] 10:37:00* Test Item Value Reference Range Interpretation Comments calcium, serum (test code = 11) 10.2 mg/dL 8.7-10.2 [facility] Baptistcarbon dioxide, venous [id number] 10:37:00* Test Item Value Reference Range Interpretation Comments carbon dioxide, venous blood (test code = 15) 28 mmol/L 20-29 [facility] Baptistchloride, [id number] 10:37:00* Test Item Value Reference Range Interpretation Comments chloride, serum (test code = 13) 98 mmol/L 96-106 [facility] Healthpotassium, [id number] 10:37:00* Test Item Value Reference Range Interpretation Comments potassium, serum (test code = 35) 4.7 mmol/L 3.5-5.2 [facility] Healthsodium, [id number] 10:37:00* Test Item Value Reference Range Interpretation Comments sodium, serum (test code = 159) 140 mmol/L 134-144 [facility] Baptisturea nitrogen/creatinine ratio, [id number] 10:37:00 * Test Item Value Reference Range Interpretation Comments urea nitrogen/creatinine ratio, serum (test code = 2462) 15 9-23 [facility] HealtheGFR if [id number] 10:37:00* Test Item Value Reference Range Interpretation Comments eGFR if (test code = 694466) 88 mL/min/((173/100). m2) >59 [facility] BaptistEstimated Glomerular Filtration Rate (calc)2018-09-27 10:37:00* Test Item Value Reference Range Interpretation Comments Estimated Glomerular Filtration Rate (calc) (test code = 76111) 76 mL/min/((173/100).m2) >59 [facility] Baptistcreatinine, [id number] 10:37:00* Test Item Value Reference Range Interpretation Comments creatinine, serum (test code = 18) 0.89 mg/dL 0.57-1.00 [facility] Baptisturea nitrogen, [id number] 10:37:00* Test Item Value Reference Range Interpretation Comments urea nitrogen, blood (test code = 9) 13 mg/dL 6-24 [facility] Baptistblood glucose, [id number] 10:37:00* Test Item Value Reference Range Interpretation Comments blood glucose, random (test code = 8) 85 mg/dL 65-99 [facility] Baptistimmature granulocytes, percentage of total cells, blood 2018-09-27 10:37:00* Test Item Value Reference Range Interpretation Comments immature granulocytes, percentage of total cells, bloo d (test code = 950888) 1 % [facility] Baptistbasophil count, [id number] 10:37:00* Test Item Value Reference Range Interpretation Comments basophil count, absolute (test code = 73480) 0.0 x10E3/uL 0.0-0.2 [facility] HealthEosinophil Absolute [id number] 10:37:00* Test Item Value Reference Range Interpretation Comments Eosinophil Absolute Count (test code = 671878) 0.3 X10E3/UL 0.0-0.4 [facility] Healthmonocyte count, blood, [id number] 10:37:00* Test Item Value Reference Range Interpretation Comments monocyte count, blood, automated (test code = 3076) 1.0 X10E3/UL 0. 1-0.9 [facility] Baptistlymphocyte count, blood, [id number] 10:37:00* Test Item Value Reference Range Interpretation Comments lymphocyte count, blood, automated (test code = 3074) 3.0 X10E3/UL 0.7-3.1 [facility] BaptistAbsolute [id number] 10:37:00* Test Item Value Reference Range Interpretation Comments Absolute Neutrophils (test code = 71929) 7.1 X10E3/UL 1.4-7.0 [facility] Baptistbasophils as percent of blood [id number] 10:37:00* Test Item Value Reference Range Interpretation Comments basophils as percent of blood leukocytes (test code = 2426) 0 % [facility] Healtheosinophils as percent of blood [id number] 10:37:00* Test Item Value Reference Range Interpretation Comments eosinophils as percent of blood leukocytes (test code = 4170) 3 % [facility] Healthmonocytes as percent of blood [id number] 10:37:00* Test Item Value Reference Range Interpretation Comments monocytes as percent of blood leukocytes (test code = 2421) 9 % [facility] Baptistlymphocytes as percent of blood [id number] 10:37:00* Test Item Value Reference Range Interpretation Comments lymphocytes as percent of blood leukocytes (test code = 317) 26 % [facility] Healthneutrophils as percent of blood [id number] 10:37:00* Test Item Value Reference Range Interpretation Comments neutrophils as percent of blood leukocytes (test code = 316) 61 % [facility] Baptistplatelet [id number] 10:37:00* Test Item Value Reference Range Interpretation Comments platelet count (test code = 66) 310 X10E3/UL 150-450 [facility] Baptistred blood cell distribution [id number] 10:37:00* Test Item Value Reference Range Interpretation Comments red blood cell distribution width (test code = 1030) 15.3 % 1 2.3-15.4 [facility] corpuscular hemoglobin concentration, [id number] 10:37:00* Test Item Value Reference Range Interpretation Comments mean corpuscular hemoglobin concentration, RBC (test code = 1029) 33.0 G/DL 31.5-35.7 [facility] corpuscular hemoglobin, [id number] 10:37:00* Test Item Value Reference Range Interpretation Comments mean corpuscular hemoglobin, RBC (test code = 1031) 32.5 pg 26 .6-33.0 [facility] corpuscular volume, [id number] 10:37:00* Test Item Value Reference Range Interpretation Comments mean corpuscular volume, RBC (test code = 315) 99 fL 79-97 [facility] Baptisthematocrit, [id number] 10:37:00* Test Item Value Reference Range Interpretation Comments hematocrit, blood (test code = 64) 44.9 % 34.0-46.6 [facility] Baptisthemoglobin, [id number] 10:37:00* Test Item Value Reference Range Interpretation Comments hemoglobin, blood (test code = 65) 14.8 g/dL 11.1-15.9 [facility] Baptisterythrocyte (RBC) [id number] 10:37:00* Test Item Value Reference Range Interpretation Comments erythrocyte (RBC) count (test code = 67) 4.55 X10E6/UL 3.77-5.28 [facility] Baptistleukocyte count, [id number] 10:37:00* Test Item Value Reference Range Interpretation Comments leukocyte count, blood (test code = 68) 11.5 X10E3/UL 3.4-10.8 [facility] Baptistthyroxine, serum, [id number] 10:37:00* Test Item Value Reference Range Interpretation Comments thyroxine, serum, free (test code = 24) 1.19 ng/dL 0.82-1.77 [facility] Baptistthyroid stimulating hormone, [id number] 10:37:00* Test Item Value Reference Range Interpretation Comments thyroid stimulating hormone, serum (test code = 29) 1.200 u[iU]/ mL 0.450-4.500 [facility]
[2019-12-06] MEDS ORDERED: ONDANSETRON HCL 4 MG ORAL DISINTEGRATING TAB PO ONE (09:30)
== END 2019-12-06 09:30 | disposition home or self-care (01) ==
LOC: ER 08:59
DX: U07.1 COVID-19 (principal); R50.9 Fever, unspecified; R05 Cough
CPT/HCPCS: 99283; Q0162; U0002

== ENCOUNTER 2019-12-07 17:34 | Emergency (ER) | payer SELFPAY ==
[~2019-12-07] VITALS: Ht 152.4 cm; Wt 59.0 kg
[~2019-12-07 17:34] MED LIST: AZITHROMYCIN250 MG PO; DECADRON6 MG PO; TYLENOL325 M2 PO; ZOFRAN4 MG SL
--- NOTE | 2019-12-07 19:10 | Emergency Department Note ---
History of Present Illnes History of Present Illness Chief Complaint: Respiratory History of Present Illness This is a 49 year old female [facility] WITH COMPLAINTS OF FEVER, COUGH, HOARSENESS. PATIENT WAS SEEN YESTERDAY FOR THE SAME AND DIAGNOSED WITH COVID-19 - WAITING FOR RESULTS. PATIENT STATES THAT SHE WAS SENT BY THE FACILITY. NO NEW COMPLAINTS. Reviewed workup from patient's visit yesterday her Covid 19 test came back negative her chest x-ray was clear. His apparently the patient most likely just has bronchitis at this point. Patient was discharged with a Z-Johnathan and started yesterday. . 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 Arrival Mode: Car Duration (how long): day(s) (4) Timing of current episode: constant Progression: unchanged Chronicity: new Context: Reports recent illness (as above) Relieving factors: none Exacerbating factors: none Associated symptoms: Reports cough (productive), Reports fever/chills, Reports malaise; Denies shortness of breath Treatments prior to arrival: antipyretic Past Medical/Family History Physician Review I have reviewed the patient's past medical and family history. Any updates have been documented here. Past Medical History Recent Fever: No (REPORTS 100.2) Clinical Suspicion of Infectio: Yes New/Unexplained Change in Ment: No Past Medical History: None Past Surgical History: Appendectomy, Hysterectomy, Other Surgery: PARTIAL HYSTERECTOMY RT KNEE SX Social History Smoking Cessation: Never Smoker Counseling Performed: No Alcohol Use: None Any Illegal Drug Use: No Physically hurt or threatened: No Other Any Pre-Existing Lines (PICC,: No Review of Systems Review of Systems Constitutional: Reports as per HPI EENTM: Reports no symptoms Cardiovascular: Reports no symptoms Respiratory: Reports as per HPI Gastrointestinal: Reports no symptoms Genitourinary: Reports no symptoms Musculoskeletal: Reports no symptoms Integumentary: Reports no symptoms Neurological: Reports no symptoms Psychological: Reports no symptoms Endocrine: Reports no symptoms Hematological/Lymphatic: Reports no symptoms Physical Exam Related Data Allergies: Coded Allergies: ketorolac (Verified Allergy, Intermediate, 12/06/19) meperidine (Verified Allergy, Intermediate, 12/06/19) tramadol (Verified Allergy, Intermediate, 12/06/19) Triage Vital Signs Vital Signs Date Time Temp Pulse Resp B/P (MAP) Pulse Ox O2 Delivery O2 Flow Rate FiO2 8/28/20 17:53 98.7 102 22 117/84 99 Room Air Vital signs reviewed: Yes Physical Exam CONSTITUTIONAL Constitutional: Present well-developed, Present well-nourished; Absent distressed HENT HENT: Present normocephalic, Present atraumatic, Present oropharynx clear/moist, Present nose normal HENT L/R: Present left ext ear normal, Present right ext ear normal EYES Eyes: Reports PERRL, Reports conjunctivae normal NECK Neck: Present ROM normal PULMONARY Pulmonary: Present effort normal, Present breath sounds normal CARDIOVASCULAR Cardiovascular: Present regular rhythm, Present heart sounds normal, Present capillary refill normal, Present tachycardia (101) GASTROINTESTINAL Abdominal: Present soft, Present nontender, Present bowel sounds normal GENITOURINARY Genitourinary: Present exam deferred SKIN Skin: Present warm, Present dry MUSCULOSKELETAL Musculoskeletal: Present ROM normal NEUROLOGICAL Neurological: Present alert, Present oriented x 3, Present no gross motor or s ensory deficits PSYCHOLOGICAL Psychological: Present mood/affect normal, Present judgement normal Assessment & Plan Medical Decision Making MDM Patient sent from rehabilitation center due to him running fever and possibly having Covid 19. Patient seen here yesterday for same. Patient's Covid test came back negative patient's chest x-ray yesterday was negative patient's lab work was negative patient started as a Z-Johnathan yesterday. Plan is to discharge patient with diagnosis of bronchitis. Patient to continue taking Z-Johnathan as directed. Patient state Tylenol and Motrin alternating for fever.. Assessment & Plan Final Impression: (1) Bronchitis Depart Disposition: HOME, SELF-CARE Last Vital Signs Date Time Temp Pulse Resp B/P (MAP) Pulse Ox O2 Delivery O2 Flow Rate FiO2 12/07/19 17:53 98.7 102 22 117/84 99 Room Air Home Meds Active Scripts Acetaminophen (Tylenol) 325 Mg Capsule, 650 MG PO Q8HR PRN for ELEVATED TEMPERATURE, #14 Prov:SANDHIR, AMBICA, DO 12/06/19 Dexamethasone (Decadron) 6 Mg Tablet, 6 MG PO DAILY, #5 Prov:SANDHIR, AMBICA, DO 12/06/19 Ondansetron Hcl* (ZOFRAN*) 4 Mg Tablet, 4 MG SL Q6HR PRN for NAUSEA, #14 MG 0 Refills Prov:SANDHIR, AMBICA, DO 12/06/19 Azithromycin (Z-JOHNATHAN) 250 Mg Tablet, 1 PKG PO DIRECTED, #1 PKG 0 Refills Prov:AMINAH GALLEGOS DO 12/06/19 KENNY RAMOS MD Dec 07, 2019 19:10
--- OUTSIDE RECORDS SUMMARY | 2019-12-07 20:52 | XMS REPORT | Clinical Summary ---
Author Author [facility] Organization [facility] Address Unknown Phone Unavailable Care Team Providers Care Aviation Consultant Name Role Phone PCP Unavailable Allergies Comments [...] Back pain 05/04/2019 Office Visit Neurosurgery Danitza Nieto Resident 05/04/2019 Orders Only Neurosurgery Dalton Mercado MD Chronic low back pain with right-sided s ciatica, unspecified back pain laterality (Primary Dx) 02/09/2019 Emergency Emergency Medicine after 12/06/2018 Family History Medical History Relation Name Comments [...] Comments Vital Sign 105/73 05/04/2019 11:40 AM [employer] Blood Pressure 108 05/04/2019 11:40 AM [employer]ER Pulse 37 C (98.6 F) 05/04/2019 11:40 AM [employer] Temperature 18 05/04/2019 11:40 AM [employer]ER Respiratory Rate 99% 02/09/2019 12:08 PM CDT Oxygen Saturation - - Inhaled Oxygen Concentration 60.8 kg (134 lb) 05/04/2019 11:40 AM [employer] Weight 157.5 cm (5' 2") 05/04/2019 11:40 AM [employer]ER Height 24.51 05/04/2019 11:40 AM [employer] Body Mass Index Plan of Treatment Health [...] OPAL 06/01/2019 Radiculop athy CONTRAST 10:26 AM [employer]ER after 12/06/2018 Results * MRI LUMBAR SPINE W/O CONTRAST (06/01/2019 10:26 AM [employer] P[employer]CE [employer]ER) Specimen Impressions Performed At IMPRESSION: SMS 1. [...] Interface, Rad/Mammog In - 06/05/2019 12:57 AM [employer]IECE [employer]ER Exam: MRI of the lumbar spine without [...] Address City/State/Zipcode Ph one Number SMS after 12/06/2018 Insurance Type Payer Benefit Subscriber ID Effective Phone Address Plan / Dates Group [place] [employer] [place] x[place]xx 2019 [address] [employer] FAMILY - [id number] PLANNING [address] [place], [place] [phone] [facility] PLAN FINANCIAL xxxxxxx 2019 [id number] [facility] [address] [place] [address]
--- OUTSIDE RECORDS SUMMARY | 2019-12-07 20:52 | XMS REPORT | Clinical Summary ---
Author Author [facility] Address Unknown Phone Unavailable Care Team Providers Care Supervisor Fine Grading Name Role Phone Selene Conteh MD PCP [...] A, MD Lingular pneumonia (Primary Dx) 04/15/2019 [facility] Internal Tx dicine - Encounter 04/18/2019 Anthony Prescott MD [...] (Primary Dx) 01/03/2019 Emergency Emergency Medicine after 12/06/2018 Immunizations Name Administration Dates Next Due Pneumococcal [...] Comments Vital Sign 100/71 06/03/2019 4:28 PM DRAIN TECHNICIAN Blood Pressure 92 06/03/2019 4:28 PM DRAIN TECHNICIAN Pulse 36.6 C (97.9 F) 06/03/2019 3:13 PM DRAIN TECHNICIAN Temperature 16 06/03/2019 4:28 PM DRAIN TECHNICIAN Respiratory Rate 96% 06/03/2019 4:28 PM DRAIN TECHNICIAN Oxygen Saturation - - Inhaled Oxygen Concentration 59 kg (130 lb) 06/03/2019 3:12 PM DRAIN TECHNICIAN Weight 157.5 cm (5' 2") 06/03/2019 3:12 PM DRAIN TECHNICIAN Height 23.78 06/03/2019 3:12 PM DRAIN TECHNICIAN Body Mass Index Plan of Treatment Health Maintenance Due Date Last Done Comments CERVICAL CANCER SCREENING 1989 BREAST CANCER SCREENING 2018 COLONOSCOPY SCREENING 2018 SHINGLES VACCINES (#1) 2018 INFLUENZA VACCINE 01/10/2020 01/09/2019 Procedures Comments Procedure Name Priority Date/Time Associated Diag nosis SPLINT APPLICATION Routine 06/03/2019 4:18 PM DRAIN TECHNICIAN XR ANKLE 3+ VW LEFT STAT 06/03/2019 3:37 PM DRAIN TECHNICIAN XR FOOT 3+ VW LEFT STAT 06/03/2019 3:37 PM DRAIN TECHNICIAN LACTIC ACID LEVEL Timed 04/16/2019 3:36 AM DRAIN TECHNICIAN LACTIC ACID LEVEL, SEPSIS Timed 04/15/2019 - NOW AND REPEAT 2X EVERY 11:56 PM DRAIN TECHNICIAN 3 HOURS LACTIC ACID LEVEL, SEPSIS Timed 04/15/2019 - NOW AND REPEAT 2X EVERY 8:51 PM DRAIN TECHNICIAN 3 HOURS LACTIC ACID LEVEL, SEPSIS Timed 04/15/2019 - NOW AND REPEAT 2X EVERY 5:44 PM DRAIN TECHNICIAN 3 HOURS CONSULT TO SEPSIS [facility]ine [facility] RESPONSE TEAM 4:32 PM DRAIN TECHNICIAN CREATINE KINASE, TOTAL Routine 04/15/2019 (CPK) 3:21 PM DRAIN TECHNICIAN LACTIC ACID LEVEL Routine 04/15/2019 3:21 PM DRAIN TECHNICIAN BLOOD CULTURE, AEROBIC & Routine 04/15/2019 ANAEROBIC 10:47 AM DRAIN TECHNICIAN BLOOD CULTURE, AEROBIC & Routine 04/15/2019 ANAEROBIC 10:23 AM DRAIN TECHNICIAN XR CHEST 2 VW STAT 04/15/2019 9:28 AM DRAIN TECHNICIAN ESTIMATED GFR STAT 04/15/2019 9:03 AM DRAIN TECHNICIAN COMPREHENSIVE METABOLIC STAT 04/15/2019 PANEL 9:03 AM DRAIN TECHNICIAN HC COMPLETE BLD COUNT STAT 04/15/2019 W/AUTO DIFF 9:03 AM DRAIN TECHNICIAN STREP SCREEN CULTURE STAT 04/15/2019 9:00 AM DRAIN TECHNICIAN RESPIRATORY PATHOGEN Routine 04/15/2019 PANEL 8:46 AM DRAIN TECHNICIAN GROUP A STREP, RAPID Routine 04/15/2019 ANTIGEN 8:46 AM DRAIN TECHNICIAN INFLUENZA ANTIGEN TEST, Routine 04/15/2019 REFLEX NEGATIVE TO RPP 8:46 AM DRAIN TECHNICIAN MRI LUMBAR SPINE WO STAT 02/04/2019 CONTRAST [...] STAT 01/03/2019 CONTRAST 12:04 PM CDT after 12/06/2018 Results * Splint Application (06/03/2019 4:18 PM DRAIN TECHNICIAN) Narrative Performed At Karl Dutton NP 2019 4:28 PM Splint Application Performed by: Karl Dutton NP Authorized by: Karl Dutton NP Consent: Consent obtained: Verbal Consent given by: Patient Risks discussed: Skin discoloration , distal paresthesia, pain and swelling Alternatives discussed: Referral Pre-procedure details: Sensation: Normal Skin color: [place] Procedure details: Laterality: Left Location: Ankle Ankle: L ankle Supplies used: Aircast and James wrap. Post-procedure details: Pain: Unchanged Sensation: Normal Skin color: [place] Patient tolerance of procedure: Cookie erated well, no immediate complications * XR Ankle 3+ Vw Left (06/03/2019 3:37 PM DRAIN TECHNICIAN) Specimen Narrative Performed At EXAMINATION: XR ANKLE 3 VW LEFT [facility] CLINICAL HISTORY: Ankle pain initia l exam COMPARISON: No Prior IMPRESSION: 1.The bones, soft tissues and joints ar e unremarkable. [id number] Procedure Note Interface, Radiology Results Incoming - 06/03/2019 3:53 PM DRAIN TECHNICIAN EXAMINATION: XR ANKLE 3 VW LEFT CLINICAL HISTORY: Ankle pain initial exam COMPARISON: No Prior IMPRESSION: 1.The bones, soft tissues and joints are unremarkable. [id number] Performing Organization Address [facility] Ph one Number [facility] [address] [place] [address] * XR Foot 3+ Vw Left (06/03/2019 3:37 PM DRAIN TECHNICIAN) Specimen Narrative Performed At EXAMINATION: XR FOOT 3 VW LEFT [facility] CLINICAL HISTORY: Foot pain chronic etiol unknown initial exam COMPARISON: None. TECHNIQUE: 3 views of the left foot obt ained. IMPRESSION: Mild degenerative spurring at the ankle . Tiny plantar calcaneal spur. No acute fracture or dislocation or periarticula r erosion identified. [id number] Procedure Note Interface, Radiology Results Incoming - 06/03/2019 3:42 PM DRAIN TECHNICIAN EXAMINATION: XR FOOT 3 VW LEFT CLINICAL HISTORY: Foot pain chronic etiol unknown initial exam COMPARISON: None. TECHNIQUE: 3 views of the left foot obtained. IMPRESSION: Mild degenerative spurring at the ankle. Tiny plantar calcaneal spur. No acute fracture or dislocation or periarticular erosion identified. [id number] Performing Organization Address [facility] one Number [facility] [address] [place] [address] * Lactic acid level (04/16/2019 3:36 AM DRAIN TECHNICIAN) Only the most recent of 2 results within the time period is included. Lactic acid 1.8 0.5 - 2.2 mmol/L [facility] Specimen Blood Performing Organization Address City/[facility] Ph one Number [facility] OF [address] [place] [address] PATHOLOGY AND GENOMIC MEDICINE [facility] [address] * Lactic acid level, SEPSIS - Now and repeat 2x every 3 hours (04/15/2019 11:56 PM DRAIN TECHNICIAN) Only the most recent of 3 results within the time period is included. Lactic acid 2.7 (H) 0.5 - 2.2 mmol/L [facility] Comment: ISLAM Results called to and read DENIO back by Ernesto Cordero/FAST FOOD MANAGER at HOSPITAL 04/16/2019 00:26 by ln. Specimen Blood Performing Organization Address City/State/[facility] Ph one Number [facility] DE[facility]MENT OF [address] [place] [address] PATHOLOGY AND GENOMIC MEDICINE [facility] [address] * Sepsis Clinical Assessment (04/15/2019 4:32 PM DRAIN TECHNICIAN) Narrative Performed At Lucia Wilburn NP 04/15/2019 [...] on chest xray. Discu ssed with Emmanual FAST FOOD MANAGER, additional fluid resuscitation being added. Defer further management to primary team. Patient appears in no acute distress at this time. Sepsis Clinical Assessment Performed by: Lucia Wilburn NP Authorized by: Lucia Wilburn NP Sepsis Clinical Assessment General Assessment Information Current sepsis score: 0 On comfort care?: No If score does not worsen, snooze alerts until: 04/15/2019 04:32 DRAIN TECHNICIAN SIRS Criteria Heart rate > 90 bpm [...] Creatine kinase, total (CPK) (04/15/2019 3:21 PM DRAIN TECHNICIAN) Creatine kinase 63 26 - 192 U/L [facility] Specimen Plasma specimen Performing Organization Address City/[facility] Ph one Number [facility] DEPARTMENT OF [address] [place] [address] PATHOLOGY AND GENOMIC MEDICINE [facility] [address] [facility] [address] * Blood culture, aerobic & anaerobic (04/15/2019 10:47 AM DRAIN TECHNICIAN) Only the most recent of 2 results within the time period is included. Blood culture No growth after 5 days of JEANER[facility]TE isolate incubation. ISLAM Comment: HOSPITAL Specimen Information Specimen Source: Blood Specimen Site: LFT HAND Specimen Blood Performing Organization Address City/[facility] Ph one Number [facility] DEPARTMENT OF [address] [place] [address] PATHOLOGY AND GENOMIC MEDICINE [address] * XR Chest 2 Vw (04/15/2019 9:28 AM DRAIN TECHNICIAN) Specimen Narrative Performed At EXAMINATION: XR CHEST 2 VW [facility] CLINICAL HISTORY: Cough new onset COMPARISON: August 18, 2017 chest IMPRESSION: Moderate lingular pneumonia Previously noted right lower lobe pneum onia has cleared No congestion effusion or pneumothorax Cardiomediastinal silhouette normal siz e. Cervical fixator as on previous Two view chest. [id number] Procedure Note Hm Interface, Radiology Results Incoming - 04/15/2019 9:37 AM DRAIN TECHNICIAN EXAMINATION: XR CHEST 2 VW CLINICAL HISTORY: Cough new onset COMPARISON: August 18, 2017 chest IMPRESSION: Moderate lingular pneumonia Previously noted right lower lobe pneumonia has cleared No congestion effusion or pneumothorax Cardiomediastinal silhouette normal size. Cervical fixator as on previous Two view chest. [id number] Performing Organization Address [facility] Ph one Number [facility] [address] [place] [address] * Estimated GFR (04/15/2019 9:03 AM DRAIN TECHNICIAN) Only the most recent of 2 results within the time period is included. Pathologist [facility] Estimated GFR 74 mL/min/1.73 m2 JEANERETTE Comment: [facility] G1 >=90 Normal or high G2 60-89 [...] 2014. Specimen Plasma specimen Performing Organization Address City/[facility] Ph one Number [facility] DE[facility] OF [address] [place] [address] PATHOLOGY AND GENOMIC MEDICINE [facility] [address] * CBC with platelet and differential (04/15/2019 9:03 AM DRAIN TECHNICIAN) Only the most recent of 2 results within the time period is included. WBC 10.1 4.2 - 11.0 k/uL [facility] RBC 4.50 4.04 - 5.86 m/uL [facility] HGB 14.2 11.5 - 15.3 g/dL [facility] HCT 42.7 34.0 - 45.0 % [facility] MCV 94.9 80.0 - 98.0 fL [facility] MCH 31.6 27.0 - 34.0 pg [facility] MCHC 33.3 31.5 - 36.5 g/dL [facility] RDW - SD 44.8 37.0 - 51.0 fL [facility] MPV 9.8 7.4 - 10.4 fL [facility] Platelet count 320 150 - 400 k/uL [facility] Nucleated RBC 0.00 /100 WBC [facility] Neutrophils 68.4 (H) 36.0 - 66.0 % [facility] Lymphocytes 17.8 (L) 24.0 - 44.0 % [facility] Monocytes 9.7 (H) 0.0 - 6.0 % [facility] Eosinophils 3.0 0.0 - 6.0 % [facility] Basophils 0.7 0.0 - 1.2 % [facility] Immature 0.4 0.0 - 1.0 % [facility] granulocytes [facility] Specimen Blood Performing Organization Address City/State/Zipcode Ph one Number [facility] OF [facility] [place] [address] PATHOLOGY AND GENOMIC MEDICINE [address] * Comprehensive metabolic panel (04/15/2019 9:03 AM DRAIN TECHNICIAN) Only the most recent of 2 results within the time period is included. Sodium 135 135 - 150 mEq/L [facility] Potassium 4.2 3.5 - 5.0 mEq/L [facility] Chloride 99 98 - 112 mEq/L [facility] CO2 22 (L) 24 - 31 mmol/L [facility] Anion gap 14@ANIO 7 - 15 mEq/L [facility] BUN 8 7 - 18 mg/dL [facility] Creatinine 0.90 0.50 - 0.90 mg/dL [facility] Glucose 93 65 - 100 mg/dL [facility] Calcium 9.6 8.3 - 10.2 mg/dL [facility] Protein 7.4 6.3 - 8.3 g/dL [facility] Albumin 3.7 3.5 - 5.0 g/dL [facility] A/G ratio 1.0 0.7 - 3.8 [facility] Alkaline 77 0 - 104 U/L [facility] phosphatase [facility] AST 18 10 - 35 U/L [facility] ALT 14 5 - 50 U/L [facility] Total bilirubin 1.3 (H) 0.2 - 1.2 mg/dL [facility] Specimen Plasma specimen Performing Organization Address City/[facility] Ph one Number [facility] DE[facility] OF [address] [place] [id number] PATHOLOGY AND GENOMIC MEDICINE [facility] [address] [place] [address] * Strep screen culture (04/15/2019 9:00 AM DRAIN TECHNICIAN) [facility] Strep screen No beta hemolytic Streptococci [facility] culture isolate isolated ISLAM Comment: HOSPITAL Specimen Information Specimen Source: Throat Specimen Site: Not otherwise specified Specimen Throat - Not otherwise specified Performing Organization Address City/[facility] Ph one Number [facility] DEPARTMENT OF [address] [place] [address] PATHOLOGY AND GENOMIC MEDICINE [address] * Respiratory pathogen panel (04/15/2019 8:46 AM DRAIN TECHNICIAN) [facility] Respiratory Negative for all pathogens JEANER[facility]TE pathogen panel tested: ISLAM Negative for Adenovirus [facility] Negative for Coronavirus HKU1 Negative for [...] - Not otherwise specified Performing Organization Address City/[facility] Ph one Number [facility] [place] [address] PATHOLOGY AND GENOMIC MEDICINE [address] * Influenza antigen test, reflex negative to RPP (04/15/2019 8:46 AM DRAIN TECHNICIAN) Influenza Negative for Influenza A/B [facility] antigen antigen. ISLAM Comment: DENIO Specimen [facility] Specimen Source: Nasopharyngeal Specimen Site: Not otherwise specified Specimen Nasopharyngeal - Not otherwise specified Performing Organization Address [facility] Ph one Number [facility] DE[facility] OF [address] [place] [address] PATHOLOGY AND GENOMIC MEDICINE [facility] Shaun [address] * Group A strep, rapid antigen (04/15/2019 8:46 AM DRAIN TECHNICIAN) Group A strep, Negative for Group A [facility] rapid antigen Streptococcus antigen. ISLAM result Comment: DENIO Specimen [facility] Specimen Source: Throat Specimen Site: Not otherwise specified Specimen Throat - Not otherwise specified Performing Organization Address [facility] Ph one Number [facility] DE[facility] OF [address] [place] [address] PATHOLOGY AND GENOMIC MEDICINE [facility] Sha[address] * MRI Lumbar Spine Wo Contrast [...] no evidence of a conus lesion. IMPRESSION: Jivy-wa-uqgqafgz degenerative changes w ithout spinal canal or foraminal stenosis. There is no fracture demonstr ated. [facility]-[id number] Procedure Note Interface, Radiology Results Incoming - [...] no evidence of a conus lesion. IMPRESSION: Sqgu-po-gswfixza degenerative changes without spinal canal or foraminal stenosis. There is no fracture demonstrated. [id number] Performing Organization Address City/State/Zipcode Ph one Number [facility] [address] [place] [address] * CT Renal Stone Protocol (01/04/2019 10:53 PM CDT) Specimen Narrative Performed At Examination: [facility] Clinical History: Flank pain stone di sease [...] ident ified in the abdomen or pelvis. [id number] Procedure Note Interface, Radiology Results Incoming - [...] identi fied in the abdomen or pelvis. [id number] Performing Organization Address City/[facility] Ph one Number [facility] [address] [place] [address] * Urinalysis screen and microscopy, with reflex to culture (01/04/2019 8:30 PM CDT) Specimen site Clean catch [facility] Color, UA Yellow [facility] Appearance, UA Clear [facility] Specific 1.020 1.001 - 1.035 [place] gravity, UA [facility] pH, UA 7.0 5.0 - 8.5 [facility] Protein, UA Negative Negative [facility] Glucose, UA Negative Negative [facility] Ketones, UA Negative Negative [facility] Bilirubin, UA Negative Negative [facility] Blood, UA Moderate (A) Negative [facility] Nitrite, UA Negative Negative [facility] Urobilinogen, Negative <2.0 [facility] Leukocyte Negative Negative [facility] esterase, UA [facility] Epithelial Few /HPF [facility] cells, UA [facility] WBC, UA None seen 0 - 5 /HPF [facility] RBC, UA 14 (H) 0 - 5 /HPF [facility] Bacteria, UA Trace None seen [facility] Yeast, UA None seen [facility] Yeast with None seen [place] pseudohyphae, [facility] Specimen Urine Performing Organization Address City/[facility] Ph one Number [facility] OF [address] [place] [address] PATHOLOGY AND GENOMIC MEDICINE [facility] [address] [place] [address] HOSPITAL * CT Lumbar Spine Wo Contrast [...] details can be further evaluated with MRI. [id number] Procedure Note Hm Interface, Radiology Results Incoming [...] details can be further evaluated with MRI. [id number] Performing Organization Address City/State/Zipcode Ph one Number [facility] [address] [place] [address] after 12/06/2018 Advance Directives For more information, please contact: [phone] Patient Embedded Nurse Explanation Type Date Recorded Advance Directives, 01/03/2019 12:13 PM Living Will and Medical Power of Gang Vibrator Operator Advance Directives, 11/17/2018 12:03 PM Living Will and Medical Power of Gang Vibrator Operator Advance Directives, 02/04/2019 11:12 PM Living Will and Medical Power of Gang Vibrator Operator Advance Directives, 03/05/2019 9:34 PM Living Will and Medical Power of Gang Vibrator Operator Advance Directives, 04/15/2019 8:45 AM Living Will and Medical Power of Gang Vibrator Operator
--- OUTSIDE RECORDS SUMMARY | 2019-12-07 20:53 | XMS REPORT | Continuity of Care Document ---
Author Author [facility] t Organization [facility] Address [address] [place] [address] Phone Unavailable Care Team Providers Care Predatory Game Hunter Name Role Phone NO, PCP PCP Unavailable [...] MedWill Kumar Attphys Unavailab Gilbert Khan Attphys Clare MA, Rubin Cruz Attphys [phone] Sandhya Jackman Attphys Nay Glynn Attphys Unavailable Marilu An Attphys Unavailable Ailin Morris Attphys Unavailable Brian Sepulveda Attphys Unavailable Rogelio MA, Chris Hoffman Attphys Plata MD, Aguila Reyes Attphys [phone] Adebayo MA, Adry Vizcaino Attphys Jason MA, Alex Gong Attphys Lani Leal Attphys Unavailable Alfredo, Will Merrill Attphys Unavailable Bethany Berumen Attphys Unavailable Idalmis Gurrola Attphys Unavailable Jennifer Alberts Attphys Unavailable Denisa Hays Attphys Unavailable Marlena Keys Attphys [phone] Alma Dutton Attphys Unavailable Louisa Wells Attphys Unavailable Mariama Hylton Attphys Nanette Houser Attphys Unavailable MACK WATKINS Admphys Unavailable Gilbert Mitchell Unavailable Selene Conteh Unavailable Payers Payer Name Policy Type Policy Number Effective Date Expiration Date S angie [employer] [employer] [id number]/30/[id number], [place] [address] xxxxxxx 2019 00:00:00 2020 23:59:59 [facility] PLANFINANCIAL ASSISTANCE [id number]/2019-10/30/[id number] [place] [address] xxxxxxx 2019 00:00:00 2020 23:59:59 [facility] [address] [id number] 2018 00:00:00 2019 00:00 :00 [facility] Problems Condition Name Condition Details Condition Category Status Onset Date Resolution Date Last Treatment Date Treating Clinician Comments Source Back pain Back pain Disease Active 2019-05-04 00:00:00 [facility] Chronic low back pain Condition Active 2019-02-14 00:00:0 0 2019-02-14 09:16:40 Gilbert Mitchell [facility] Screening for lipid disorder Condition Active 2018-09-27 00:00:00 2018-09-28 [facility] Condition Active 2018-09-27 00:00:00 2018-09-28 14:08:31 [facility] Elevated liver enzymes Condition Active 2018-09-27 00:00: 00 2018-09-28 14:08:31 [facility] Arm pain, left Condition Active 2018-09-27 00:00:00 [facility] 12-16-19 14:08:31 [facility] Acute renal failure Acute renal failure Disease Active 2018-08-14 00:00 :00 Pepito Mcnulty Wound of left ankle Problem Active [facility] History of Past Illness Condition Name Condition Details Condition Category Status Onset Date Resolution Date Last Treatment Date Treating Clinician Comments Source Lingular pneumonia Lingular pneumonia Disease Resolved 5 00:00:00 2019-04-18 00:00:00 2019-04-18 08:25:27 Pepito Mcnulty Allergies, Adverse Reactions, Alerts Allergy Name Allergy Type Status Severity Reaction(s) Onset Date Inacti ve Date Treating Clinician Comments Source Tramadol Allergy to substance Active Moderate 2019-12-06 00:00:00 [facility] Meperidine Allergy to substance Active Moderate 2019-12-06 00:00:0 0 [facility] Ketorolac Allergy to substance Active Moderate 2019-12-06 00:00:00 [facility] iodine DA Active 2019-09-24 00:00:00 [facility] tramadol DA Active 2019-09-24 00:00:00 [facility] ketorolac DA Active SV 2019-09-24 00:00:00 [facility] Alcohol Propensity to adverse reactions to drug Active Other (See Comments) 2019-04-15 00:00:00 Organ shut down [facility] Isopropyl Alcohol Propensity to adverse reactions to drug Active Rash 2019-04-15 00:00:00 [facility] Povidone-Iodine Propensity to adverse reactions to drug Active 2019-02-09 00:00:00 [facility] Meperidine Propensity to adverse reactions to drug Active 2019-02-09 00:00:00 [facility] Ethyl Alcohol Propensity to adverse reactions to drug Active 2019-02-09 00:00:00 [facility] Ketorolac Propensity to adverse reactions to drug Active 2019-02-09 00:00:00 [facility] Tramadol Propensity to adverse reactions to drug Active 2019-02-09 00:00:00 [facility] TRAMADOL Drug allergy (disorder) Active 2018-09-27 00:00:00 [facility] TORADOL Drug allergy (disorder) Active 2018-09-27 00:00:00 [facility] LODINE Drug allergy (disorder) Active 2018-09-27 00:00:00 [facility] DEMEROL Drug allergy (disorder) Active 2018-09-27 00:00:00 [facility] COMPAZINE Drug allergy (disorder) Active 2018-09-27 00:00:0 0 [facility] Iodine Propensity to adverse reactions to drug [...] Available DA Active U 2017-11-01 0 0:00:00 [facility] Family History Family Member Diagnosis Comments Start Date Stop Date Source Natural mother Alzheimer's disease [facility] Natural mother Fibromyalgia [facility] ealt Social History Social Habit Start Date Stop Date Quantity Comments Source History SDOH Alcohol Std Drinks [facility] History SDOH Alcohol Binge [facility] Sex Assigned At [facility] Cigarettes smoked current (pack per day) - Reported 00:00:00 2019-04-15 00:00:00 [facility] Alcohol intake 2019-04-15 00:00:00 2019-04-15 00:00:00 Current non-drinker of alcohol (finding) [facility] drug use, illicit 2019-02-14 08:06:28 2019-02-14 08:06:28 Never [facility] alcohol use 2019-02-14 08:06:28 2019-02-14 08:06:28 Never [facility] social history reviewed E&M 2019-02-14 08:06:28 2019-02-14 08:06 :28 reviewed today [facility] social history E&M 2019-02-14 08:06:28 2019-02-14 08:06:28 [place] e. Homeless. Employed part-time. Highest education level: 9th-12th grade. [facility] sexual orientation 2019-02-14 08:06:28 2019-02-14 08:06:28 Heterosexu al [facility] assessment of health literacy (NCQA [facility] 2014 Standard s, 3C10) 2019-02-14 08:06:28 2019-02-14 08:06:28 Adequate [facility] passive cigarette smoke exposure 2019-02-14 08:06:28 2019-02-14 08:06 :28 No [facility] time of call 2019-02-12 12:44:00 2019-02-12 12:44:00 02/12/2019 12:44 PM [facility] is there any chance that you could be ? 2018-10-30 0 8:39:36 2018-10-30 08:39:36 [facility] lt patient considered to be homeless 2018-10-10 10:08:10 2018-10-10 10:0 8:10 Yes [facility] sex at 2018-09-27 09:17:30 2018-09-27 09:17:30 Female [facility] Occupation #1 2018-09-27 09:17:30 2018-09-27 09:17:30 [employer] worker [facility] home/family situation, assessment 2018-09-27 09:17:30 2018-09-27 09:17:30 pt lives i a homeless [facility] here in [facility] Alcohol Comment 2018-08-14 00:00:00 2018-08-14 00:00:00 stoipped alco hol use [facility] History of tobacco use 2011-07-16 00:00:00 2018-08-13 00:00:00 Curren t smoker [facility] History SDOH Alcohol Frequency 2018-07-12 00:00:00 2018-07-12 00:00:0 0 1 [facility] Smoking Status Start Date Stop Date Source Former smoker 2019-04-15 00:00:00 2019-04-15 00:00:00 [facility] Medications Ordered Medication Name Filled Medication Name Start Date Stop Da te Current Medication? Ordering Clinician Indication Dosage Frequency Signature (SIG) Comments Components Source Acetaminophen (Tylenol) 325 Mg CAPSULE Acetaminophen (Tyleno l) 325 Mg CAPSULE 2019-12-06 09:06:00 Yes 650 Every 8 Hours as needed for Elevated Temperature [facility] Azithromycin (Z-Johnathan) 250 Mg TABLET Azithromycin (Z-Johnathan) 250 Mg TABLET 2019-12-06 09:06:00 Yes 1 As Directed [facility] Dexamethasone (Decadron) 6 Mg TABLET Dexamethasone (Decadron ) 6 Mg TABLET 2019-12-06 09:06:00 Yes 6 Daily [facility] Ondansetron Hcl (Zofran*) 4 Mg TABLET Ondansetron Hcl (Zofra n*) 4 Mg TABLET 2019-12-06 09:06:00 Yes 4 Every 6 Hours as n eeded for Nausea [facility] gabapentin (NEURONTIN) 800 mg tablet 2019-07-19 00:00:00 Yes Radiculopathy Start with 1 pills o nce day for 1-2 days and increase to 1 pills 2 times x 1-2 days and then if no side effects increase to 1 pills 3 times a day.. [facility] acetaminophen-codeine (TYLENOL WITH CODEINE #3) 300-30 mg [...] tablet by mouth 3 times madai ly. [facility] gabapentin (NEURONTIN) 600 mg tablet 2019-04-18 14:50:09 Yes 600mg [id number] Take 600 mg by mouth 3 (three) [...] 2019-04-16 16:37 :06 2019-04-15 00:00:00 No 300mg [id number] Take 300 mg b y mouth 3 [...] 3xD 1 tablet three times a day [facility] TYLENOL WITH CODEINE #3 (ACETAMINOPHEN-CODEINE) 300-30 MG TA BS 2019-02-14 00:00:00 Yes Gilbert Mitchell 1{Tablet} 4xD take 1 tablet every 6 hours as needed [facility] acetaminophen-codeine (TYLENOL/CODEINE #3) 300-30 mg per tab [...] Wero 1{Tablet} 1xD 1 by mouth daily [facility] WELLBUTRIN XL (BUPROPION HCL) 150 MG [id number] 2018-09-27 00:00:00 Yes Selene Wero 1{Tablet} 1xD 1 tab By Mouth Every Day [facility] (GABAPENTIN) 300 MG CAPS 2018-09-27 00:00:00 Yes Selene Wero 1{Capsule} 3xD 1 by mouth three times a day as needed [facility] TYLENOL WITH CODEINE #3 (ACETAMINOPHEN-CODEINE) 300-30 MG TA BS 2018-09-27 00:00:00 Yes Selene Wero 1 by mouth every 6-8 ho urs as needed [facility] Immunizations Ordered Immunization Name Filled Immunization Name Date Status Comments Source engerix-b im 20 mcg/ml [id number] 2018-11-02 14:04: 00 Completed [facility] Vital Signs Vital Name Observation Time Observation Value Comments Source Weight 2019-12-06 08:58:00 130 [lb_av] [facility] BMI (Body Mass Index) 2019-12-06 08:58:00 25.4 kg/m2 [facility] Weight 2019-11-14 19:36:00 130 [lb_av] [facility] BMI (Body Mass Index) 2019-11-14 19:36:00 25.4 kg/m2 [facility] Weight 2019-09-07 18:14:00 130 [lb_av] [facility] BMI (Body Mass Index) 2019-09-07 18:14:00 25.4 kg/m2 [facility] Systolic blood pressure 2019-06-03 16:28:10 100 mm[Hg] [facility] Diastolic blood pressure 2019-06-03 16:28:10 71 mm[Hg] [facility] Heart rate 2019-06-03 16:28:10 92 /min [facility] Respiratory rate 2019-06-03 16:28:10 16 /min [facility] Oxygen saturation in Arterial blood by Pulse oximetry 06-03 16:28:10 96 /min [facility] Body temperature 2019-06-03 15:13:48 36.61 Ashley [facility] Body height 2019-06-03 15:12:00 157.5 cm [facility] Body weight 2019-06-03 15:12:00 58.968 kg [facility] BMI 2019-06-03 15:12:00 23.78 kg/m2 [facility] Systolic blood pressure 2019-05-04 11:40:00 105 mm[Hg] [facility] Diastolic blood pressure 2019-05-04 11:40:00 73 mm[Hg] [facility] Heart rate 2019-05-04 11:40:00 108 /min [facility] Body temperature 2019-05-04 11:40:00 37 Ashley Suni is [facility] Respiratory rate 2019-05-04 11:40:00 18 /min Suni is [facility] Body height 2019-05-04 11:40:00 157.5 cm [facility] Body weight 2019-05-04 11:40:00 60.782 kg [facility] BMI 2019-05-04 11:40:00 24.51 kg/m2 [facility] Oxygen saturation in Arterial blood by Pulse oximetry 2018-04 12:08:00 99 /min [facility] Procedures Procedure Date / Time Performed Performing Clinician [facility] e SPLINT APPLICATION 2019-06-03 16:18:40 Karl Dutton XR ANKLE 3+ VW LEFT 2019-06-03 15:37:57 Ariana Real XR FOOT 3+ VW LEFT 2019-06-03 15:37:14 Karl Dutton MRI LUMBAR SPINE W/O CONTRAST 2019-06-01 10:26:40 Danitza Nieto [facility] LACTIC ACID LEVEL 2019-04-16 03:36:00 Consuelo Ernesto Lupe Mcnulty LACTIC ACID LEVEL, SEPSIS - NOW AND [...] BLOOD CULTURE, AEROBIC & ANAEROBIC 2019-04-15 10:47:00 Elizabeth Mata BLOOD CULTURE, AEROBIC & ANAEROBIC 2019-04-15 10:23:00 Elizabeth Mata XR CHEST 2 VW 2019-04-15 09:28:19 Elizabeth Mata HC COMPLETE BLD COUNT W/AUTO DIFF 2019-04-15 09:03:00 Leonard Mata COMPREHENSIVE METABOLIC PANEL 2019-04-15 09:03:00 Elizabeth Mata ESTIMATED GFR 2019-04-15 09:03:00 Elizabeth Mata STREP SCREEN CULTURE 2019-04-15 09:00:00 Yury Gamez INFLUENZA ANTIGEN TEST, REFLEX NEGATIVE TO RPP 2019-04-15 08 :46:00 Elizabeth Mata GROUP A STREP, RAPID ANTIGEN 2019-04-15 08:46:00 Elizabeth Mata RESPIRATORY PATHOGEN PANEL 2019-04-15 08:46:00 Elizabeth Mata MRI LUMBAR SPINE WO CONTRAST 2019-02-04 22:49:52 Plata Rico anthony Aguila Mcnulty HC COMPLETE BLD COUNT W/AUTO DIFF 2019-02-04 21:55:00 Tameka Plata COMPREHENSIVE METABOLIC PANEL 2019-02-04 21:55:00 Plata Shin kruse Aguila Mcnulty ESTIMATED GFR 2019-02-04 21:55:00 Tameka Plata [facility] RENAL STONE PROTOCOL 2019-01-04 22:53:11 Karl Dutton URINALYSIS SCREEN AND MICROSCOPY, WITH REFLEX TO CULTURE 201 12-18-25 20:30:[address] LUMBAR SPINE WO CONTRAST 2019-01-03 12:04:25 Ayanna Lemon [facility] Brief Follow Up 2018-11-27 12:59:34 Ata [facility] Psychotherapy 30 (16-37*) min - [id number] (with patient an d/or family member) 2018-11-27 12:59:34 Stephie Berumenberly [facility] First Vx - Ix admin via ID IM or jet injects without c ounseling by physician 2018-11-02 14:03:08 Wero [facility] Engerix-B Injection Suspension 20 MCG/ML 2018-11-02 14:03:08 Elliott jackson [facility] Vaccines Ordered - Print Consent/Declination Forms 2018-10-10 10:26:59 [facility] Assessment - 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 Seasonal 2018-10-18 14:03:02 Chase Berumen [facility] Diagnostic evaluation (no medical) - [id number] 2018-10-18 14:03:02 Kanu goodson [facility] Plan of Care Planned Activity Planned Date Details Comments Source Future Scheduled Test 2020-01-10 00:00:00 IMM Influenza Seas onal Jan to June (>/= 19 yrs) [code = IMM Influenza Seasonal Jan to June (>/= 19 yrs)] [facility] Future Scheduled Test 2020-01-10 00:00:00 INFLUENZA VACCINE [code = INFLUENZA VACCINE] [facility] Mcn[facility] Future Scheduled Test 2018 00:00:00 Screening for luis gnant neoplasm of colon (procedure) [code = 693318314] [facility] Scheduled Test 2018 00:00:00 BREAST CANCER SCRE ENING [code = BREAST CANCER SCREENING] [facility] Scheduled Test 2018 00:00:00 COLONOSCOPY SCREEN ING [code = COLONOSCOPY SCREENING] [facility] Scheduled Test 2018 00:00:00 SHINGLES VACCINES (#1) [code = SHINGLES VACCINES (#1)] [facility] Scheduled Test 2008 00:00:00 Breast Cancer Scrn (Yearly) [code = Breast Cancer Scrn (Yearly)] [facility] Scheduled Test 1989 00:00:00 Screening for luis gnant neoplasm of cervix (procedure) [code = 805075915] [facility] Scheduled Test 1989 00:00:00 Screening for luis gnant neoplasm of cervix (procedure) [code = 062776624] [facility] Inst[facility]-19: 06/25/2019 [facility] Encounters Start Date/Time End Date/Time Encounter Type Admission Type Attendi [facility] Care Department Encounter ID Source 2019-12-06 08:59:00 2019-12-06 09:30:00 Departed Emergency Room [facility] [id number] [facility] 2019-11-14 19:32:00 2019-11-14 21:10:00 Departed Emergency Room MAGALY THEA [facility] [id number] [facility] 2019-09-07 18:00:00 2019-09-08 09:11:00 Departed Emergency Room MARIE LUKE [facility] [id number] [facility] 2019-07-19 07:15:16 2019-07-19 07:15:[address] [facility] [id number] [facility] 2019-07-03 00:00:00 2019-07-03 00:00:[address] [facility] [id number] [facility] 2019-06-21 00:00:00 2019-06-21 00:00:[address] [facility] [id number] [facility] 2019-06-19 00:00:00 2019-06-19 00:00:[address] [facility] [id number] [facility] 2019-06-08 00:00:00 2019-06-08 00:00:[address] [facility] [id number] [facility] 2019-06-03 00:00:00 2019-06-03 00:00:00 Emergency PAUL REAL [facility] [id number] [facility] 2019-06-01 08:56:05 2019-06-01 08:56:[address] [facility] [id number] [facility] 2019-05-04 11:39:40 2019-05-04 11:39:[address] [facility] [id number] [facility] 2019-04-15 00:00:00 2019-04-18 00:00:00 Inpatient ARVIND ESCUDERO [facility] [id number] [facility] 2019-03-19 00:00:00 2019-03-19 00:00:00 Office Visit Selene Francis [facility] Encounter/[id number] [facility] 2019-03-16 00:00:00 2019-03-16 00:00:00 Office Visit Gilbert Recinos [employer] steinberg [facility] Encounter/[id number] [facility] 2019-03-05 00:00:00 2019-03-05 00:00:00 Emergency CLARE PATRICK [facility] [id number] [facility] 2019-03-05 00:00:00 2019-03-05 00:00:00 Office Visit Selene Conteh [facility] Encounter/[id number] [facility] 2019-02-14 00:00:00 2019-02-14 00:00:00 Office Visit Gilbert Mitchell [facility] Encounter/[id number] [facility] 2019-02-14 00:00:00 2019-02-14 00:00:00 Office Visit Gilbert Mitchell [facility] Encounter/[id number] [facility] 2019-02-14 00:00:00 2019-02-14 00:00:00 Office Visit Gilbert Recinos, Nay Barakat Jeanette [facility] Encounter/[id number] [facility] 2019-02-12 00:00:00 2019-02-12 00:00:00 Office Visit Selene Francis Lindsey Martinez, Luis E [facility] Encounter/[id number] [facility] 2019-02-09 10:17:54 2019-02-09 10:17:54 Emergency [facility] [id number] [facility] 2019-02-04 00:00:00 2019-02-04 00:00:00 Emergency FELIX RODRÍGUEZ LÓPEZANITRA [facility] [id number] [facility] 2019-02-04 00:00:00 2019-02-04 00:00:00 [facility]/[id number] [facility] 2019-02-04 00:00:00 2019-02-04 00:00:00 Office Visit Selene Conteh [facility] Encounter/[id number] [facility] 2019-01-04 00:00:00 2019-01-04 00:00:00 Office Visit Wero Selene [facility] Encounter/[id number] [facility] 2019-01-03 00:00:00 2019-01-03 00:00:00 Office Visit Selene Conteh [facility] Encounter/[id number] [facility] 2018-11-29 00:00:00 2018-11-29 00:00:00 Office Visit Selene Conteh [facility] Encounter/[id number] [facility] 2018-11-29 00:00:00 2018-11-29 00:00:00 Office Visit Selene Francis Rebeca [facility] Encounter/[id number] [facility] 2018-11-28 00:00:00 2018-11-28 00:00:00 Office Visit Alexandra Ailin [facility] Encounter/[id number] [facility] 2018-11-17 00:00:00 2018-11-17 00:00:00 Office Visit Wero Selene [facility] Encounter/[id number] [facility] 2018-11-02 00:00:00 2018-11-02 00:00:00 Office Visit Dameon Fuentes [facility] Encounter/[id number] [facility] 2018-10-30 00:00:00 2018-10-30 00:00:00 [facility] Encounter/[id number] [facility] 2018-10-30 00:00:00 2018-10-30 00:00:00 [facility] Encounter/[id number] [facility] 2018-10-30 00:00:00 2018-10-30 00:00:00 [facility] Encounter/[id number] [facility] 2018-10-30 00:00:00 2018-10-30 00:00:00 Office Visit Selene Francis Jacqueline Gonzales, Christina [facility] Encounter/[id number] [facility] 2018-10-10 00:00:00 2018-10-10 00:00:00 [facility] Encounter/[id number] [facility] 2018-10-10 00:00:00 2018-10-10 00:00:00 Office Visit Denisa Hays [facility] Encounter/[id number] [facility] 2018-10-10 00:00:00 2018-10-10 00:00:00 Office Visit Denisa Hays [facility] Encounter/[id number] [facility] 2018-09-27 00:00:00 2018-09-27 00:00:00 Office Visit Selene Conteh [facility] Encounter/[id number] [facility] 2018-09-27 00:00:00 2018-09-27 00:00:00 Office Visit Selene Conteh [facility] Encounter/[id number] [facility] 2018-09-27 00:00:00 2018-09-27 00:00:00 Office Visit Selene Francis, Marlena Dutton, Alma Wells, Lani Melgar [facility] Encounter/[id number] [facility] 2018-08-29 00:00:00 2018-08-29 00:00:00 Office Visit Ailin Morris [facility] Encounter/[id number] [facility] 2018-08-28 00:00:00 2018-08-28 00:00:00 Office Visit Mariama Riggins, Nanette Arceo [facility] Encounter/[id number] [facility] 2018-08-23 00:00:00 2018-08-23 00:00:00 Office Visit Selene Conteh [facility] Encounter/[id number] [facility] 2018-08-21 00:00:00 2018-08-21 00:00:00 Office Visit Selene Conteh [facility] Encounter/[id number] [facility] Results Test Description Test Time Test Comments Results Result Comments Source ANKLE 3+ VIEWS LEFT 2019-11-14 20:34:00 [place] [address] Patient Name: DORIAN DUBON MR #: [id number] : 1970 Age/Sex: 48/F Req #: [id number] Adm Physician: Ordered by: THEA MCKENZIE DO Report #: [id number] Location: ER Room/Bed: Procedure: [id number] DX/ANKLE 3+ VIEWS LEFT Exam Date: 11/14/19 [...] ng/mL 0-0.045 N - XR CHEST 1 [id number] 23:58:00 FAX: Shireen Cleveland DO [place]: B St: REG Name: Carlos GUTIÉRREZMONYDORIAN [facility] : 11/22/18 67 Age/S: 48/F [address] [facility] Unit #: [id number] Loc: [place] [address] Phys: Shireen Cleveland DO Acct: [id number] Dis Date: Status: REG ER PHONE #: [phone] Exam Date: 10/26/2019 9802 FAX #: [phone] Reason: CHEST PAIN EXAMS: CPT CODE: [id number] XR CHEST 1 V [id number] Location: H 3 CHEST X- RAY: PA frontal projection, one view, 10/26/19 CLINICAL HISTORY: Chest pain, emergency room presentation COMPARISON EXAMS: 10/10/19 chest x-ray exam FINDINGS: Heart, lungs, and media stinal structures are within normal limits. No evolving process or pleura l based finding. No active CHF or pneumonia. IMPRESSION: No acute finding at 9988 Reported and signed by: Ludmila Mccormick M.D. CC: Shireen Cleveland DO Technologist: RT JAMES([place]) Trnscrd Date/Time/By: 10/26/2019 (5225) : By: [email or web address] Orig Print D/T: S: 10/27/2019 (0002) PAGE 1 Signed Report HEPATIC FUNCTION [id number] 23:53:00* Test Item Value Reference Range Interpretation [...] reference range due to change in reagent. [id number] 23:53:00* Test Item Value Reference Range Interpretation Comments LIPASE (test code = LIP) 94 U/L 73.0-393.0 N [id number] 23:53:00* Test Item Value Reference Range Interpretation Comments TROPONIN-I (test code = TROPI) <0.015 ng/mL 0-0.045 N BASIC METABOLIC [id number] 23:49:00* Test Item Value Reference Range Interpretation [...] CA) 8.5 mg/dL 8.5-10.1 N HCG SERUM [id number] 23:49:00* Test Item Value Reference Range Interpretation Comments HCG SERUM QUAL (test code = HCGQL) NEGATIVE NEGATIVE This HCGQL test is NOT applicable for MALE patients.Check with nurse about probable order error.If Tumor Marker Test needed, nurse should order test "HCGTU"(Test #550.96989) BASIC METABOLIC [id number] 23:41:00* Test Item Value Reference Range Interpretation [...] code = CA) mg/dL 8.5-10.1 HCG SERUM [id number] 23:41:00* Test Item Value Reference Range Interpretation Comments HCG SERUM QUAL (test code = HCGQL) NEGATIVE NEGATIVE This HCGQL test is NOT applicable for MALE patients.Check with nurse about probable order error.If Tumor Marker Test needed, nurse should order test "HCGTU"(Test #550.28814) BASIC METABOLIC [id number] 23:39:00* Test Item Value Reference Range Interpretation [...] code = CA) mg/dL 8.5-10.1 HCG SERUM [id number] 23:39:00* Test Item Value Reference Range Interpretation Comments HCG SERUM QUAL (test code = HCGQL) NEGATIVE NEGATIVE This HCGQL test is NOT applicable for MALE patients.Check with nurse about probable order error.If Tumor Marker Test needed, nurse should order test "HCGTU"(Test #550.11649) CBC W/AUTO [id number] 23:26:00* Test Item Value Reference Range Interpretation [...] = MDIFF) NO - CT HEAD/BRAIN W/O [id number] 23:08:00 Name: DORIAN DUBON [facility] : 1970 Age/S: 48 / F [address] Unit #: [id number] Loc: [place] [address] Phys: Shireen Cleveland DO Acct: [id number] Dis Date: Status: REG ER PHONE #: [phone] Exam Date: 10/26/2019 0247 FAX #: [phone] Reason: Headache EXAMS: CPT CODE: [id number] CT HEAD/BRAIN W/O CONT 76139 EXAM: - CT HEAD/BRAIN W/O CONT HISTORY: [...] Jemal Xiao CTDI: DLP: Trnscb Date/Time: 10/26/2019 (2308) t.SDR.MKM4 Orig Print D/T: S: 10/26/2019 (4554) PAGE 1 Signed Report DRUGS OF ABUSE SCREEN [id number] 01:50:00* Test Item Value Reference Range Interpretation [...] NEGATIVE <300 ng/mL DRUGS OF ABUSE SCREEN [id number] 00:16:00* Test Item Value Reference Range Interpretation [...] = [place]) NEGATIVE <300 ng/mL - CTA [id number] 22:12:00 Name: DORIAN DUBON [facility] : 1970 Age/S: 48 / F [address] Unit #: [id number] Loc: [place] [address] Phys: Shireen Cleveland DO Acct: [id number] Dis Date: Status: REG ER PHONE #: [phone] Exam Date: 10/10/20192129 FAX #: [phone] Reason: HEADACHE EXAMS: CPT CODE: [id number] CTA HEAD 67018 HISTORY: HEADACHE TECHNIQUE: Cerebral CT angiography was [...] the basilar tip. Bilateral P1 and distal OUTDOOR POWER EQUIPMENT MECHANIC segments are patent. Bilateral posterior communicating arteries are present. No aneurysm. Dural venous sinuses and proximal internal jugular veins are patent. Visualized brain parenchyma is unremarkable. No mass- effect or midline shift. No hydrocephalus. Visualized paranasal sinuses and mastoid air cells are clear. Regional osseous structures structures are intact. IMPRESSION: Negative c erebral CT angiography. Location: [facility] El ectronically Signed by Jason Oliveira MD on 10/10/2019 at 2212 Reported and signed by: Jason Oliveira MD PAGE 1 Signed Report (CONTINUED) Name: DORIAN DUBON [facility] : 1970 Age/S: 48 / F [address] Unit #: [id number] Loc: [place] [address] Phys: Shireen Cleveland DO Acct: [id number] Dis Date: Status: REG ER PHONE #: [phone] Exam Date: 2019 2130 FAX #: [phone] Reason: HEADACHE EXAMS: CPT CODE: [id number] CTA HEAD 18110 <Continued> CC: Shireen Cleveland DO Technologist:Joie Henry RT(R); NASEEM Ramirez CTDI: DLP: Trnscb Date/Time: 10/10/2019 (2211) t.SDR.RR31/t.SDR.RR31 Orig Print D/T: S: 10/10/2019 (2214) PAGE 2 Signed Report - XR CHEST 1 [id number] 18:29:00 FAX: Shireen Cleveland DO [place]: B St: REG Name: DORIAN KNAPP [facility] : [birth year] Age/S: 48/F [address] Unit #: [id number] Loc: [place] [address] Phys: Shireen Cleveland DO Acct: [id number] Dis Date: Status: REG ER PHONE #: [phone] Exam Date: 10/10/2019 1800 FAX #: [phone] Reason: Altered Mental Status EXAMS: CPT CODE: [id number] XR CHEST 1 V 32573 REASON FOR EXAM: Altered M ental Status Exam Order Date: 10/10/2019 4:04 PM Order kiana Silveira: Shireen Cleveland, DO PROCEDURE: - XR CHEST 1 V [...] limits. IMPRESSION: No acute cardiopulmonary process. Location: [facility] at 1829 Reported and signed by: Jason Gonzalez CC: Shireen Cleveland DO Techno logist: TAMEKA OVERTON RT(R) Trnscrd Date/Time /By: 10/10/2019 (1828) : By: [email or web address] Orig Print D/T: S: 10/10/2019 ( 1832) PAGE 1 Signed Report COVID 19 INHOUSE [id number] 18:17:00* Test Item Value Reference Range Interpretation Comments COVID 19 INHOUSE AG (test code = [id number]) NEGATIVE Is patient requiring admission or transfer? YIndication for rapid COVID-19 testi ng: Mod Clinical SuspicionURINALYSIS [id number] 18:06:00* Test Item Value Reference Range Interpretation [...] #/HPF NONE Urine Source? Clean CatchBASIC METABOLIC [id number] 17:31:00* Test Item Value Reference Range Interpretation [...] CA) 8.8 mg/dL 8.5-10.1 N HEPATIC FUNCTION [id number] 17:31:00* Test Item Value Reference Range Interpretation [...] reference range due to change in reagent. [id number] 17:31:00* Test Item Value Reference Range Interpretation Comments TROPONIN-I (test code = TROPI) <0.015 ng/mL 0-0.045 N [id number] 17:24:00* Test Item Value Reference Range Interpretation Comments ALCOHOL (test code = ALC) 268 mg/dL 0.0-3.0 H -- INTERPRETIVE DATA NOTE: POSITIVE SCREENING RESULTS SHOULD BE CONSIDERED PRESUMPTIVE.WHEN COLLECTED FOR MEDICAL PURPOSES ONLY. SPECIMEN WILL NOTBE COLLECTED BY CHAIN OF CUSTODY.IF A CONFIRMATION OF POSITIVE RESULTS IS DESIRED, ACONFIRMATION TEST MUST BE REQUESTED BY THE PHYSICIAN AT ANADDITIONAL CHARGE TO THE PATIENT. BASIC METABOLIC [id number] 17:22:00* Test Item Value Reference Range Interpretation [...] code = CA) mg/dL 8.5-10.1 HEPATIC FUNCTION [id number] 17:22:00* Test Item Value Reference Range Interpretation [...] TOTAL (test code = ALKP) IUnit/L 45-117 [id number] 17:22:00* Test Item Value Reference Range Interpretation Comments TROPONIN-I (test code = TROPI) ng/mL 0-0.045 - CT HEAD/BRAIN W/O [id number] 17:18:00 Name: DORIAN DUBON [facility] : 1970 Age/S: 48 / F [address] [facility] Unit #: [id number] Loc: [place] [address] Phys: Shireen Cleveland Acct: [id number] Dis Date: Status: REG ER PHONE #: [phone] Exam Date: 10/10/2019 1650 FAX #: [phone] Reason: Altered Mental Status EXAMS: CPT CODE: [id number] CT HEAD/BRAIN W/O CONT 19391 HISTORY: Altered Mental Status TECHNIQUE: Noncontrast 2.5 [...] are unremarkable. IMPRESSION: Negative CT head. Location: [facility] at 1718 Reported and signed by: Jason Oliveira MD CC: Shireen Cleveland DO Technologist:Joie Henry RT(R); NASEEM Ramirez CTDI: DLP: Trnscb Date/Time: 10/10/2019 (9408) t.SDR.RR31 Orig Print D/T: S: 10/10/2019 (9917) PAGE 1 Signed Report CBC W/AUTO [id number] 17:05:00* Test Item Value Reference Range Interpretation [...] DIFF REQUIRED (test code = MDIFF) NO [id number] 16:49:00* Test Item Value Reference Range Interpretation Comments GLUBED (test code = GLUBED) 111 mg/dL 74-106 H Performed by certified plastic cnc machine operator at [facility] - US ABDOMEN [id number] 11:02:00 Name: DORIAN DUBON [facility] : 1970 Age/S: 48 / F [address] [facility] Unit #: [id number] Loc: [place] [address] Phys: Lexa Escobar MD Acct: [id number] Dis Date: Status: REG ER PHONE #: [phone] Exam Date: 09/24/2019 1041 FAX #: [phone] Reason: upper abdominal pain EXAMS: CPT CODE: [id number] US ABDOMEN COMPLETE 28537 REASON FOR EXAM: upper abdominal pain EXAM ORDER DATE: 09/24/2019 10:09 AM Attending M.Carlos.: Lexa Escobar MD PROCEDURE: - US ABDOMEN [...] 1 Signed Report (CONTINUED) Name: DORIAN DUBON [facility] : 1970 Age/S: 48 / F [address] [facility] Unit #: [id number] Loc: [place] [address] Phys: Lexa Escobar MD Acct: [id number] Dis Date: Status: REG ER PHONE #: [phone] Exam Date: 09/24/2019 1041 FAX #: [phone] Reason: upper abdominal pain EXAMS: CPT CODE: [id number] US ABDOMEN COMPLETE 31264 < Continued> Left kidney: parenchyma echogenicity: Normal echogenicity size: 9.9 x 4.9 x 5.0 cm stones: none cysts/masses: none hydronephrosis: none Spleen: size: 8.0 x 2.8 x 3.5 cm cysts/masses: Parenchyma is sonographically unremarkable. Ascites/pleural effusions: None IMPRESSION: Sonographically unremarkable abdomen. Location: [facility] at 1102 Reported and signed by: Jason Oliveira MD CC: Lexa Escobar MD Technologist: Karlene Sanchez RDMS Trnscb Date/Time: 09/24/2019 (1102) t.RR31 Orig Print D/T: S: 09/24/2019 (3115) Probe: PAGE 2 Signed Report URINALYSIS [id number] 10:21:00* Test Item Value Reference Range Interpretation [...] LPF NONE-FEW A Urine Source? Clean CatchURINALYSIS [id number] 10:15:00* Test Item Value Reference Range Interpretation [...] HPF NONE Urine Source? Clean CatchBASIC METABOLIC [id number] 09:55:00* Test Item Value Reference Range Interpretation [...] CA) 8.2 mg/dL 8.4-10.2 L HEPATIC FUNCTION [id number] 09:55:00* Test Item Value Reference Range Interpretation [...] code = ALKP) 72 U/L 38-126 N [id number] 09:55:00* Test Item Value Reference Range Interpretation Comments LIPASE (test code = LIP) 126 U/L 128-270 L HCG SERUM [id number] 09:55:00* Test Item Value Reference Range Interpretation Comments HCG SERUM QUAL (test code = HCGQL) NEGATIVE NEGATIVE This HCGQL test is NOT applicable for MALE patients.Check with nurse about probable order error.If Tumor Marker Test needed, nurse should order test "HCGTU"(Test #550.85069) [id number] 09:55:00* Test Item Value Reference Range Interpretation Comments TROPONIN-I (test code = TROPI) <0.015 ng/mL 0.00-0.056 N BASIC METABOLIC [id number] 09:52:00* Test Item Value Reference Range Interpretation [...] CA) 8.2 mg/dL 8.4-10.2 L HEPATIC FUNCTION [id number] 09:52:00* Test Item Value Reference Range Interpretation [...] TOTAL (test code = ALKP) IUnit/L 45-117 [id number] 09:52:00* Test Item Value Reference Range Interpretation Comments LIPASE (test code = LIP) Unit/L 144-286 HCG SERUM [id number] 09:52:00* Test Item Value Reference Range Interpretation Comments HCG SERUM QUAL (test code = HCGQL) NEGATIVE NEGATIVE This HCGQL test is NOT applicable for MALE patients.Check with nurse about probable order error.If Tumor Marker Test needed, nurse should order test "HCGTU"(Test #550.06442) [id number] 09:52:00* Test Item Value Reference Range Interpretation Comments TROPONIN-I (test code = TROPI) ng/mL 0-0.045 BASIC METABOLIC [id number] 09:47:00* Test Item Value Reference Range Interpretation [...] code = CA) mg/dL 8.4-10.2 HEPATIC FUNCTION [id number] 09:47:00* Test Item Value Reference Range Interpretation [...] TOTAL (test code = ALKP) IUnit/L 45-117 [id number] 09:47:00* Test Item Value Reference Range Interpretation Comments LIPASE (test code = LIP) Unit/L 144-286 HCG SERUM [id number] 09:47:00* Test Item Value Reference Range Interpretation Comments HCG SERUM QUAL (test code = HCGQL) NEGATIVE NEGATIVE This HCGQL test is NOT applicable for MALE patients.Check with nurse about probable order error.If Tumor Marker Test needed, nurse should order test "HCGTU"(Test #550.47166) [id number] 09:47:00* Test Item Value Reference Range Interpretation Comments TROPONIN-I (test code = TROPI) ng/mL 0-0.045 CBC W/O [id number] 09:45:00* Test Item Value Reference Range Interpretation [...] 10.4 fL 6.7-11.0 N Urine opiates screening [id number] 01:10:00* Test Item Value Reference Range Interpretation Comments Urine Opiates Screen (test code = 69904-2) NEGATIVE NEGATIVE ALL TESTS PERFORMED MANUALLY ON [employer] TOX/SEE TESTMemorial Hermann Orthopedic & Spine HospitalBarbiturates screen, [id number] 01:10:00* Test Item Value Reference Range Interpretation Comments Urine Barbiturates Screen (test code = 648246548) NEGATIVE NEGA TIVE [facility] HospitalUrine phencyclidine detection by screening [id number] 01:10:00* Test Item Value Reference Range Interpretation Comments Urine Phencyclidine Screen (test code = 14865-1) NEGATIVE NEGAT YAIMA [facility]ine HospitalUrine amphetamines detection by screen method > 1000 ng/[id number] 01:10:00* Test Item Value Reference Range Interpretation Comments Urine Amphetamines Screen (test code = 11046-6) NEGATIVE NEGATI VE [facility] HospitalFluoroscopic procedure less than one hour ekiyvduk2908-19-61 01:10:00* Test Item Value Reference Range Interpretation Comments Urine Methamphetamines Screen (test code = Urine Metha mphetamines Screen) NEGATIVE NEGATIVE [facility] HospitalUrine benzodiazepines detection by screening [id number] 01:10:00* Test Item Value Reference Range Interpretation Comments Urine Benzodiazepines Screen (test code = 97326-4) POSITIVE NEG ATIVE This test provides only a screen. Positive results should be repeated by a confi rmatory test.[facility] HospitalUrine cocaine measurement (mass/volume)2019-09-08 01:10:00* Test Item Value Reference Range Interpretation Comments Urine Cocaine Screen (test code = 3398-5) NEGATIVE NEGATIVE [facility] HospitalUrine cannabinoids detection by screening [id number] 01:10:00* Test Item Value Reference Range Interpretation Comments Urine Cannabinoids Screen (test code = 85236-3) POSITIVE NEGATI VE This test provides only a screen. Positive results should be repeated by a confi rmatory test.[facility] HospitalUrine methadone screen 2019-09-08 01:10:00* Test Item Value Reference Range Interpretation Comments Urine Methadone Screen (test code = 58523-4) NEGATIVE NEGATIVE THESE RESULTS ARE FOR MEDICAL TREATMENT ONLYTHIS REPORT CONTAINS UNCONFIR MED SCREENING RESULTS*POSITIVE RESULTS WILL BE CONFIRMED BY REFERENCE LAB UPON R EQUEST CUT-OFFDRUG CLASS CONCENTRATION ng/mLAmphetamines 1000Methamphetamines 1000Cocaine Metabolite 300Opiate 300Phencyc lidine 25Cannabinoid 50Barbiturates 300Benzodiazepine 300Methadone 300[facility] CenterUrine opiates screening [id number] 01:10:00* Test Item Value Reference Range Interpretation Comments Urine Opiates Screen (test code = 95692-0) NEGATIVE NEGATIVE ALL TESTS PERFORMED MANUALLY ON [employer] TOX/SEE TESTMemorial Hermann Orthopedic & Spine HospitalBarbiturates screen, [id number] 01:10:00* Test Item Value Reference Range Interpretation Comments Urine Barbiturates Screen (test code = 498636340) NEGATIVE NEGA TIVE [facility] HospitalUrine phencyclidine detection by screening [id number] 01:10:00* Test Item Value Reference Range Interpretation Comments Urine Phencyclidine Screen (test code = 43324-3) NEGATIVE NEGAT YAIMA [facility] HospitalUrine amphetamines detection by screen method > 1000 ng/[id number] 01:10:00* Test Item Value Reference Range Interpretation Comments Urine Amphetamines Screen (test code = 02701-1) NEGATIVE NEGATI VE [facility] HospitalFluoroscopic procedure less than one hour igsgmsma6471-37-97 01:10:00* Test Item Value Reference Range Interpretation Comments Urine Methamphetamines Screen (test code = Urine Metha mphetamines Screen) NEGATIVE NEGATIVE [facility] HospitalUrine benzodiazepines detection by screening kxeopl1224-12-44 01:10:00* Test Item Value Reference Range Interpretation Comments Urine Benzodiazepines Screen (test code = 26433-6) POSITIVE NEG ATIVE This test provides only a screen. Positive results should be repeated by a confi rmatory test.[facility] HospitalUrine cocaine measurement (mass/volume)2019-09-08 01:10:00* Test Item Value Reference Range Interpretation Comments Urine Cocaine Screen (test code = 3398-5) NEGATIVE NEGATIVE [facility] HospitalUrine cannabinoids detection by screening oifrph8697-29-58 01:10:00* Test Item Value Reference Range Interpretation Comments Urine Cannabinoids Screen (test code = 10618-6) POSITIVE NEGATI VE This test provides only a screen. Positive results should be repeated by a confi rmatory test.[facility] HospitalUrine methadone screen 2019-09-08 01:10:00* Test Item Value Reference Range Interpretation Comments Urine Methadone Screen (test code = 94829-4) NEGATIVE NEGATIVE THESE RESULTS ARE FOR MEDICAL TREATMENT ONLYTHIS REPORT CONTAINS UNCONFIR MED SCREENING RESULTS*POSITIVE RESULTS WILL BE CONFIRMED BY REFERENCE LAB UPON R EQUEST CUT-OFFDRUG CLASS CONCENTRATION ng/mLAmphetamines 1000Methamphetamines 1000Cocaine Metabolite 300Opiate 300Phencyc lidine 25Cannabinoid 50Barbiturates 300Benzodiazepine 300Methadone 300[facility] HospitalUrine opiates screening [id number] 01:10:00* Test Item Value Reference Range Interpretation Comments Urine Opiates Screen (test code = 89770-6) NEGATIVE NEGATIVE ALL TESTS PERFORMED MANUALLY ON [employer] TOX/SEE TESTMemorial Hermann Orthopedic & Spine HospitalBarbiturates screen, [id number] 01:10:00* Test Item Value Reference Range Interpretation Comments Urine Barbiturates Screen (test code = 130308292) NEGATIVE NEGA TIVE [facility] HospitalUrine phencyclidine detection by screening xeuvqs7933-97-04 01:10:00* Test Item Value Reference Range Interpretation Comments Urine Phencyclidine Screen (test code = 30640-5) NEGATIVE NEGAT YAIMA [facility] HospitalUrine amphetamines detection by screen method > 1000 ng/iF6195-69-22 01:10:00* Test Item Value Reference Range Interpretation Comments Urine Amphetamines Screen (test code = 31475-2) NEGATIVE NEGATI VE [facility] HospitalFluoroscopic procedure less than one hour bdwldtbx3359-62-48 01:10:00* Test Item Value Reference Range Interpretation Comments Urine Methamphetamines Screen (test code = Urine Metha mphetamines Screen) NEGATIVE NEGATIVE [facility] HospitalUrine benzodiazepines detection by screening udsvxw3564-83-68 01:10:00* Test Item Value Reference Range Interpretation Comments Urine Benzodiazepines Screen (test code = 63544-3) POSITIVE NEG ATIVE This test provides only a screen. Positive results should be repeated by a confi rmatory test.[facility] HospitalUrine cocaine measurement (mass/volume)2019-09-08 01:10:00* Test Item Value Reference Range Interpretation Comments Urine Cocaine Screen (test code = 3398-5) NEGATIVE NEGATIVE [facility] HospitalUrine cannabinoids detection by screening ibdosk0475-52-16 01:10:00* Test Item Value Reference Range Interpretation Comments Urine Cannabinoids Screen (test code = 68998-6) POSITIVE NEGATI VE This test provides only a screen. Positive results should be repeated by a confi rmatory test.[facility] HospitalUrine methadone screen 2019-09-08 01:10:00* Test Item Value Reference Range Interpretation Comments Urine Methadone Screen (test code = 74169-8) NEGATIVE NEGATIVE THESE RESULTS ARE FOR MEDICAL TREATMENT ONLYTHIS REPORT CONTAINS UNCONFIR MED SCREENING RESULTS*POSITIVE RESULTS WILL BE CONFIRMED BY REFERENCE LAB UPON R EQUEST CUT-OFFDRUG CLASS CONCENTRATION ng/mLAmphetamines 1000Methamphetamines 1000Cocaine Metabolite 300Opiate 300Phencyc lidine 25Cannabinoid 50Barbiturates 300Benzodiazepine 300Methadone 300[facility] CenterBlood leukocytes automated count (number/volume) 2019-09-07 23:09:00* Test Item Value Reference Range Interpretation Comments White Blood Count (test code = 6690-2) 8.13 4.8-10.8 [facility] HospitalBlwood[facility] erythrocytes automated count (number/volume)2019-09-07 23:09:00* Test Item Value Reference Range Interpretation Comments Red Blood Count (test code = 789-8) 4.14 3.6-5.1 [facility] HospitalBlood hemoglobin measurement (moles/volume)2019-09-07 23:09:00* Test Item Value Reference Range Interpretation Comments Hemoglobin (test code = 81845-9) 13.3 12.0-16.0 [facility]ine HospitalAutomated blood hematocrit (volume fraction)2019-09-07 23:09:00* Test Item Value Reference Range Interpretation Comments Hematocrit (test code = 4544-3) 40.2 34.2-44.1 [facility] HospitalAutomated erythrocyte mean corpuscular whwypg7999-19-52 23:09:00* Test Item Value Reference Range Interpretation Comments Mean Corpuscular Volume (test code = 787-2) 97.1 81-99 [facility] HospitalAutomated erythrocyte mean corpuscular hemoglobin (mass per erythrocyte)2019-09-07 23:09:00* Test Item Value Reference Range Interpretation Comments Mean Corpuscular Hemoglobin (test code = 785-6) 32.1 28-32 [facility] HospitalAutomated erythrocyte mean corpuscular hemoglobin concentration measurement (mass/volume)2019-09-07 23:09:00* Test Item Value Reference Range Interpretation Comments Mean Corpuscular Hemoglobin Concent (test code = 786-4) 33.1 31-35 [facility] Spine HospitalRDW MjmMb-Zyj8570-01-29 23:09:00* Test Item Value Reference Range Interpretation Comments Red Cell Distribution Width (test code = 76746-3) 14.1 11.7 -14.4 [facility] HospitalAutomated blood platelet count (count/volume)2019-09-07 23:09:00* Test Item Value Reference Range Interpretation Comments Platelet Count (test code = 777-3) 288 140-360 [facility] HospitalAutomated blood segmented neutrophil count as percentage of total zpakwwmkbg6970-66-38 23:09:00* Test Item Value Reference Range Interpretation Comments Neutrophils (%) (Auto) (test code = 42221-7) 49.7 38.7-80.0 [facility] HospitalAutomated blood lymphocyte count as percentage ot total yfjhbwzlia3096-41-87 23:09:00* Test Item Value Reference Range Interpretation Comments Lymphocytes (%) (Auto) (test code = 736-9) 36.2 18.0-39.1 [facility] HospitalAutomated blood monocyte count as percentage of total chfrpxjalm0151-43-73 23:09:00* Test Item Value Reference Range Interpretation Comments Monocytes (%) (Auto) (test code = 5905-5) 9.6 4.4-11.3 [facility] HospitalAutomated blood eosinophil count as percentage of total coxxgpovkg9505-69-15 23:09:00* Test Item Value Reference Range Interpretation Comments Eosinophils (%) (Auto) (test code = 713-8) 3.2 0.0-6.0 [facility] HospitalAutomated blood basophil count as percentage of total dvmgdhzqlb7616-32-26 23:09:00* Test Item Value Reference Range Interpretation Comments Basophils (%) (Auto) (test code = 706-2) 0.9 0.0-1.0 [facility] HospitalFluoroscopic procedure less than one hour bpefxwez4053-23-65 23:09:00* Test Item Value Reference Range Interpretation Comments IM GRANULOCYTES % (test code = IM GRANULOCYTES %) 0.4 0.0- 1.0 [facility] [facility] HospitalAutomated blood neutrophil count 2019-09-07 23:09:00* Test Item Value Reference Range Interpretation Comments Neutrophils # (Auto) (test code = 751-8) 4.1 2.1-6.9 [facility] HospitalBlood lymphocytes count (number/volume) 2019-09-07 23:09:00* Test Item Value Reference Range Interpretation Comments Lymphocytes # (Auto) (test code = 43523-0) 2.9 1.0-3.2 [facility] HospitalBlood monocytes automated count (number/volume)2019-09-07 23:09:00* Test Item Value Reference Range Interpretation Comments Monocytes # (Auto) (test code = 742-7) 0.8 0.2-0.8 [facility] HospitalAutomated blood eosinophil count 2019-09-07 23:09:00* Test Item Value Reference Range Interpretation Comments Eosinophils # (Auto) (test code = 711-2) 0.3 0.0-0.4 [facility] HospitalAutomated blood basophil count (count/volume)2019-09-07 23:09:00* Test Item Value Reference Range Interpretation Comments Basophils # (Auto) (test code = 704-7) 0.1 0.0-0.1 [facility] HospitalFluoroscopic procedure less than one hour [id number] 23:09:00* Test Item Value Reference Range Interpretation Comments Absolute Immature Granulocyte (auto (nely t code = Absolute Immature Granulocyte (auto) 0.03 0-0.1 [facility] sodium [facility] (moles/volume)2019-09-07 23:09:00* Test Item Value Reference Range Interpretation Comments Sodium Level (test code = 2951-2) 145 136-145 [facility]ere[facility] potassium measurement (moles/volume)2019-09-07 23:09:00* Test Item Value Reference Range Interpretation Comments Potassium Level (test code = 2823-3) 3.1 3.5-5.1 [facility]ererum or plasma chloride measurement (moles/volume)2019-09-07 23:09:00* Test Item Value Reference Range Interpretation Comments Chloride Level (test code = 2075-0) 112 98-107 [facility]ererum or plasma carbon dioxide, total measurement (moles/volume)2019-09-07 23:09:00* Test Item Value Reference Range Interpretation Comments Carbon Dioxide Level (test code = 2028-9) 21 22-29 [facility]ererum or [facility] anion [id number] 23:09:00* Test Item Value Reference Range Interpretation Comments Anion Gap (test code = 16579-9) 15.1 8-16 [facility]ere[facility] urea nitrogen measurement (mass/volume)2019-09-07 23:09:00* Test Item Value Reference Range Interpretation Comments Blood Urea Nitrogen (test code = 3094-0) 6 7-26 [facility]ere[facility] creatinine measurement (mass/volume)2019-09-07 23:09:00* Test Item Value Reference Range Interpretation Comments Creatinine (test code = 2160-0) 0.75 0.57-1.11 [facility]ererum or plasma urea nitrogen/creatinine mass [id number] 23:09:00* Test Item Value Reference Range Interpretation Comments BUN/Creatinine Ratio (test code = 3097-3) 8 6-25 [facility] HospitalEstimated glomerular filtration rate (GFR) jagtcfpmvnujj3325-34-78 23:09:00* Test Item Value Reference Range Interpretation Comments Estimat Glomerular Filtration Rate (test code = 211013879) > 60 >60 Ranges were taken from the National Kidney Disease Education Program and the [facility] Kidney Foundation literature.Reference ranges:60 or greater: Agngnq24-86 ( for 3 consecutive months): Chronic kidney disease 15 or less: Kidney failureMemorial Hermann Orthopedic & Spine HospitalGlucose xcvgjbmujvu8100-72-32 23:09:00* Test Item Value Reference Range Interpretation Comments Glucose Level (test code = IOS3424) 102 74-118 [facility]ere[facility] plasma calcium measurement (mass/volume)2019-09-07 23:09:00* Test Item Value Reference Range Interpretation Comments Calcium Level (test code = 41644-1) 8.2 8.4-10.2 [facility] HospitalFluoroscopic procedure less than one hour vobvrpgo7641-33-06 23:09:00* Test Item Value Reference Range Interpretation Comments Aspartate Amino Transf (AST/SGOT) (test code = Aspartate Amino Transf (AST/SGOT)) 51 5-34 [facility]ererum or plasma alanine aminotransferase measurement (enzymatic activity/volume)2019-09-07 23:09:00* Test Item Value Reference Range Interpretation Comments Alanine Aminotransferase (ALT/SGPT) (test code = 1742-6) 32 0-55 [facility]ererum or plasma protein measurement (mass/volume)2019-09-07 23:09:00* Test Item Value Reference Range Interpretation Comments Total Protein (test code = 2885-2) 6.3 6.5-8.1 [facility]ererum or plasma albumin measurement (mass/volume)2019-09-07 23:09:00* Test Item Value Reference Range Interpretation Comments Albumin (test code = 1751-7) 3.8 3.5-5.0 [facility] HospitalPlasma globulin measurement (mass/volume) 2019-09-07 23:09:00* Test Item Value Reference Range Interpretation Comments Globulin (test code = 48438-5) 2.5 2.3-3.5 [facility]ererum or plasma albumin/globulin mass [id number] 23:09:00* Test Item Value Reference Range Interpretation Comments Albumin/Globulin Ratio (test code = 1759-0) 1.5 0.8-2.0 [facility]ererum or plasma alkaline phosphatase measurement (enzymatic activity/volume)2019-09-07 23:09:00* Test Item Value Reference Range Interpretation Comments Alkaline Phosphatase (test code = 6768-6) 76 40-150 [facility]ererum or plasma creatine kinase measurement (enzymatic activity/volume)2019-09-07 23:09:00* Test Item Value Reference Range Interpretation Comments Creatine Kinase (test code = 2157-6) 433 29-168 [facility]ererum or plasma creatine kinase MB measurement (mass/volume)2019-09-07 23:09:00* Test Item Value Reference Range Interpretation Comments Creatine Kinase MB (test code = 31748-3) 3.10 0-4.3 [facility]ererum or plasma troponin i.cardiac measurement (mass/volume)2019-09-07 23:09:00* Test Item Value Reference Range Interpretation Comments Troponin I (test code = 06036-8) < 0.05 0.0-0.40 [facility]ererum or plasma ethanol measurement (mass/volume)2019-09-07 23:09:00* Test Item Value Reference Range Interpretation Comments Ethyl Alcohol Level (test code = 5643-2) 210.8 0.0-10.0 [facility] HospitalBlood leukocytes automated count (number/volume)2019-09-07 23:09:00* Test Item Value Reference Range Interpretation Comments White Blood Count (test code = 6690-2) 8.13 4.8-10.8 [facility] HospitalBlood erythrocytes automated count (number/volume)2019-09-07 23:09:00* Test Item Value Reference Range Interpretation Comments Red Blood Count (test code = 789-8) 4.14 3.6-5.1 [facility] HospitalBlood hemoglobin measurement (moles/volume)2019-09-07 23:09:00* Test Item Value Reference Range Interpretation Comments Hemoglobin (test code = 90702-5) 13.3 12.0-16.0 [facility] HospitalAutomated blood hematocrit (volume fraction)2019-09-07 23:09:00* Test Item Value Reference Range Interpretation Comments Hematocrit (test code = 4544-3) 40.2 34.2-44.1 [facility] HospitalAutomated erythrocyte mean corpuscular [id number] 23:09:00* Test Item Value Reference Range Interpretation Comments Mean Corpuscular Volume (test code = 787-2) 97.1 81-99 [facility] HospitalAutomated erythrocyte mean corpuscular hemoglobin (mass per erythrocyte)2019-09-07 23:09:00* Test Item Value Reference Range Interpretation Comments Mean Corpuscular Hemoglobin (test code = 785-6) 32.1 28-32 [facility] HospitalAutomated erythrocyte mean corpuscular hemoglobin concentration measurement (mass/volume)2019-09-07 23:09:00* Test Item Value Reference Range Interpretation Comments Mean Corpuscular Hemoglobin Concent (test code = 786-4) 33.1 31-35 [facility] HospitalRDW XqjPv-Arx1950-54-29 23:09:00* Test Item Value Reference Range Interpretation Comments Red Cell Distribution Width (test code = 41539-8) 14.1 11.7 -14.4 [facility] HospitalAutomated blood platelet count (count/volume)2019-09-07 23:09:00* Test Item Value Reference Range Interpretation Comments Platelet Count (test code = 777-3) 288 140-360 [facility] HospitalAutomated blood segmented neutrophil count as percentage of total mshdlziawu6339-96-26 23:09:00* Test Item Value Reference Range Interpretation Comments Neutrophils (%) (Auto) (test code = 21678-3) 49.7 38.7-80.0 [facility] HospitalAutomated blood lymphocyte count as percentage ot total facxqggpjf5964-22-14 23:09:00* Test Item Value Reference Range Interpretation Comments Lymphocytes (%) (Auto) (test code = 736-9) 36.2 18.0-39.1 [facility] HospitalAutomated blood monocyte count as percentage of total lxpzlgzgrc1465-71-85 23:09:00* Test Item Value Reference Range Interpretation Comments Monocytes (%) (Auto) (test code = 5905-5) 9.6 4.4-11.3 [facility] HospitalAutomated blood eosinophil count as percentage of total bnyvrtjjpa8336-13-69 23:09:00* Test Item Value Reference Range Interpretation Comments Eosinophils (%) (Auto) (test code = 713-8) 3.2 0.0-6.0 [facility] HospitalAutomated blood basophil count as percentage of total ttngoxqhxv3976-76-58 23:09:00* Test Item Value Reference Range Interpretation Comments Basophils (%) (Auto) (test code = 706-2) 0.9 0.0-1.0 [facility] HospitalFluoroscopic procedure less than one hour qlszhxow3093-28-44 23:09:00* Test Item Value Reference Range Interpretation Comments IM GRANULOCYTES % (test code = IM GRANULOCYTES %) 0.4 0.0- 1.0 [facility] HospitalAutomated blood neutrophil count 2019-09-07 23:09:00* Test Item Value Reference Range Interpretation Comments Neutrophils # (Auto) (test code = 751-8) 4.1 2.1-6.9 [facility] HospitalBlood lymphocytes count (number/volume) 2019-09-07 23:09:00* Test Item Value Reference Range Interpretation Comments Lymphocytes # (Auto) (test code = 70580-3) 2.9 1.0-3.2 [facility] HospitalBlwood[facility] monocytes automated count (number/volume)2019-09-07 23:09:00* Test Item Value Reference Range Interpretation Comments Monocytes # (Auto) (test code = 742-7) 0.8 0.2-0.8 [facility] HospitalAutomated blood eosinophil count 2019-09-07 23:09:00* Test Item Value Reference Range Interpretation Comments Eosinophils # (Auto) (test code = 711-2) 0.3 0.0-0.4 [facility] HospitalAutomated blood basophil count (count/volume)2019-09-07 23:09:00* Test Item Value Reference Range Interpretation Comments Basophils # (Auto) (test code = 704-7) 0.1 0.0-0.1 [facility] HospitalFluoroscopic procedure less than one hour aqkzntos1795-04-25 23:09:00* Test Item Value Reference Range Interpretation Comments Absolute Immature Granulocyte (auto (nely t code = Absolute Immature Granulocyte (auto) 0.03 0-0.1 [facility]ererum or plasma sodium measurement (moles/volume)2019-09-07 23:09:00* Test Item Value Reference Range Interpretation Comments Sodium Level (test code = 2951-2) 145 136-145 [facility]ererum or plasma potassium measurement (moles/volume)2019-09-07 23:09:00* Test Item Value Reference Range Interpretation Comments Potassium Level (test code = 2823-3) 3.1 3.5-5.1 [facility]ererum or plasma chloride measurement (moles/volume)2019-09-07 23:09:00* Test Item Value Reference Range Interpretation Comments Chloride Level (test code = 2075-0) 112 98-107 [facility]ererum or plasma carbon dioxide, total measurement (moles/volume)2019-09-07 23:09:00* Test Item Value Reference Range Interpretation Comments Carbon Dioxide Level (test code = 2028-9) 21 22-29 [facility]ererum or plasma anion [id number] 23:09:00* Test Item Value Reference Range Interpretation Comments Anion Gap (test code = 99422-0) 15.1 8-16 [facility]ererum or plasma urea nitrogen measurement (mass/volume)2019-09-07 23:09:00* Test Item Value Reference Range Interpretation Comments Blood Urea Nitrogen (test code = 3094-0) 6 7-26 [facility]ererum or plasma creatinine measurement (mass/volume)2019-09-07 23:09:00* Test Item Value Reference Range Interpretation Comments Creatinine (test code = 2160-0) 0.75 0.57-1.11 [facility]ererum or plasma urea nitrogen/creatinine mass [id number] 23:09:00* Test Item Value Reference Range Interpretation Comments BUN/Creatinine Ratio (test code = 3097-3) 8 6-25 [facility] HospitalEstimated glomerular filtration rate (GFR) oumwdqyhcfqph6448-56-70 23:09:00* Test Item Value Reference Range Interpretation Comments Estimat Glomerular Filtration Rate (test code = 719371528) > 60 >60 Ranges were taken from the National Kidney Disease Education Program and the [facility] literature.Reference ranges:60 or greater: Nyyeyz65-36 ( for 3 consecutive months): Chronic kidney disease 15 or less: Kidney failureMemorial Hermann Orthopedic & Spine HospitalGlucose yhakifwojoi3181-45-20 23:09:00* Test Item Value Reference Range Interpretation Comments Glucose Level (test code = NRC1953) 102 74-118 [facility]ererum or plasma calcium measurement (mass/volume)2019-09-07 23:09:00* Test Item Value Reference Range Interpretation Comments Calcium Level (test code = 35339-2) 8.2 8.4-10.2 [facility]ererum or plasma total bilirubin measurement (mass/volume)2019-09-07 23:09:00* Test Item Value Reference Range Interpretation Comments Total Bilirubin (test code = 1975-2) 0.7 0.2-1.2 [facility] HospitalFluoroscopic procedure less than one hour mcbxnkaj7454-69-83 23:09:00* Test Item Value Reference Range Interpretation Comments Aspartate Amino Transf (AST/SGOT) (test code = Aspartate Amino Transf (AST/SGOT)) 51 5-34 [facility]ererum or plasma alanine aminotransferase measurement (enzymatic activity/volume)2019-09-07 23:09:00* Test Item Value Reference Range Interpretation Comments Alanine Aminotransferase (ALT/SGPT) (test code = 1742-6) 32 0-55 [facility]ererum or plasma protein measurement (mass/volume)2019-09-07 23:09:00* Test Item Value Reference Range Interpretation Comments Total Protein (test code = 2885-2) 6.3 6.5-8.1 [facility]ererum or plasma albumin measurement (mass/volume)2019-09-07 23:09:00* Test Item Value Reference Range Interpretation Comments Albumin (test code = 1751-7) 3.8 3.5-5.0 [facility] HospitalPlasma globulin measurement (mass/volume) 2019-09-07 23:09:00* Test Item Value Reference Range Interpretation Comments Globulin (test code = 60302-9) 2.5 2.3-3.5 [facility]ererum or plasma albumin/globulin mass yfgww2563-11-16 23:09:00* Test Item Value Reference Range Interpretation Comments Albumin/Globulin Ratio (test code = 1759-0) 1.5 0.8-2.0 [facility]ererum or plasma alkaline phosphatase measurement (enzymatic activity/volume)2019-09-07 23:09:00* Test Item Value Reference Range Interpretation Comments Alkaline Phosphatase (test code = 6768-6) 76 40-150 [facility]ererum or plasma creatine kinase measurement (enzymatic activity/volume)2019-09-07 23:09:00* Test Item Value Reference Range Interpretation Comments Creatine Kinase (test code = 2157-6) 433 29-168 [facility]ererum or plasma creatine kinase MB measurement (mass/volume)2019-09-07 23:09:00* Test Item Value Reference Range Interpretation Comments Creatine Kinase MB (test code = 47235-0) 3.10 0-4.3 [facility]ererum or plasma troponin i.cardiac measurement (mass/volume)2019-09-07 23:09:00* Test Item Value Reference Range Interpretation Comments Troponin I (test code = 79098-2) < 0.05 0.0-0.40 [facility]ererum or plasma ethanol measurement (mass/volume)2019-09-07 23:09:00* Test Item Value Reference Range Interpretation Comments Ethyl Alcohol Level (test code = 5643-2) 210.8 0.0-10.0 [facility] HospitalBlood leukocytes automated count (number/volume)2019-09-07 23:09:00* Test Item Value Reference Range Interpretation Comments White Blood Count (test code = 6690-2) 8.13 4.8-10.8 [facility] HospitalBlood erythrocytes automated count (number/volume)2019-09-07 23:09:00* Test Item Value Reference Range Interpretation Comments Red Blood Count (test code = 789-8) 4.14 3.6-5.1 [facility] HospitalBlood hemoglobin measurement (moles/volume)2019-09-07 23:09:00* Test Item Value Reference Range Interpretation Comments Hemoglobin (test code = 81478-8) 13.3 12.0-16.0 [facility] HospitalAutomated blood hematocrit (volume fraction)2019-09-07 23:09:00* Test Item Value Reference Range Interpretation Comments Hematocrit (test code = 4544-3) 40.2 34.2-44.1 [facility] HospitalAutomated erythrocyte mean corpuscular jjzfbx2440-36-33 23:09:00* Test Item Value Reference Range Interpretation Comments Mean Corpuscular Volume (test code = 787-2) 97.1 81-99 [facility] HospitalAutomated erythrocyte mean corpuscular hemoglobin (mass per erythrocyte)2019-09-07 23:09:00* Test Item Value Reference Range Interpretation Comments Mean Corpuscular Hemoglobin (test code = 785-6) 32.1 28-32 [facility] HospitalAutomated erythrocyte mean corpuscular hemoglobin concentration measurement (mass/volume)2019-09-07 23:09:00* Test Item Value Reference Range Interpretation Comments Mean Corpuscular Hemoglobin Concent (test code = 786-4) 33.1 31-35 [facility] HospitalRDW QqdHk-Nfl1125-61-29 23:09:00* Test Item Value Reference Range Interpretation Comments Red Cell Distribution Width (test code = 08698-2) 14.1 11.7 -14.4 [facility] HospitalAutomated blood platelet count (count/volume)2019-09-07 23:09:00* Test Item Value Reference Range Interpretation Comments Platelet Count (test code = 777-3) 288 140-360 [facility] neutrophil count as percentage of total mdthjcjpch7672-19-08 23:09:00* Test Item Value Reference Range Interpretation Comments Neutrophils (%) (Auto) (test code = 24621-4) 49.7 38.7-80.0 [facility] HospitalAutomated blood lymphocyte count as percentage ot total rpjtdbntez9261-05-93 23:09:00* Test Item Value Reference Range Interpretation Comments Lymphocytes (%) (Auto) (test code = 736-9) 36.2 18.0-39.1 [facility] HospitalAutatrium healthed blood monocyte count as percentage of total kqkamfuwra5880-40-37 23:09:00* Test Item Value Reference Range Interpretation Comments Monocytes (%) (Auto) (test code = 5905-5) 9.6 4.4-11.3 [facility] HospitalAutomated blood eosinophil count as percentage of total vlcdcwxrbh1236-11-80 23:09:00* Test Item Value Reference Range Interpretation Comments Eosinophils (%) (Auto) (test code = 713-8) 3.2 0.0-6.0 [facility] HospitalAutomated blood basophil count as percentage of total nnunqmvdqw9481-76-19 23:09:00* Test Item Value Reference Range Interpretation Comments Basophils (%) (Auto) (test code = 706-2) 0.9 0.0-1.0 [facility] HospitalFluoroscopic procedure less than one hour qnzlwuge6896-83-08 23:09:00* Test Item Value Reference Range Interpretation Comments IM GRANULOCYTES % (test code = IM GRANULOCYTES %) 0.4 0.0- 1.0 [facility] HospitalAutomated blood neutrophil count 2019-09-07 23:09:00* Test Item Value Reference Range Interpretation Comments Neutrophils # (Auto) (test code = 751-8) 4.1 2.1-6.9 [facility] HospitalBlood lymphocytes count (number/volume) 2019-09-07 23:09:00* Test Item Value Reference Range Interpretation Comments Lymphocytes # (Auto) (test code = 64542-4) 2.9 1.0-3.2 [facility] HospitalBlwoodwind[facility] campus monocytes automated count (number/volume)2019-09-07 23:09:00* Test Item Value Reference Range Interpretation Comments Monocytes # (Auto) (test code = 742-7) 0.8 0.2-0.8 [facility] HospitalAutomated blood eosinophil count 2019-09-07 23:09:00* Test Item Value Reference Range Interpretation Comments Eosinophils # (Auto) (test code = 711-2) 0.3 0.0-0.4 [facility] HospitalAutomated blood basophil count (count/volume)2019-09-07 23:09:00* Test Item Value Reference Range Interpretation Comments Basophils # (Auto) (test code = 704-7) 0.1 0.0-0.1 [facility] HospitalFluoroscopic procedure less than one hour xzmbnqsz9099-82-29 23:09:00* Test Item Value Reference Range Interpretation Comments Absolute Immature Granulocyte (auto (nely t code = Absolute Immature Granulocyte (auto) 0.03 0-0.1 [facility]ererum or plasma sodium measurement (moles/volume)2019-09-07 23:09:00* Test Item Value Reference Range Interpretation Comments Sodium Level (test code = 2951-2) 145 136-145 [facility]ererum or plasma potassium measurement (moles/volume)2019-09-07 23:09:00* Test Item Value Reference Range Interpretation Comments Potassium Level (test code = 2823-3) 3.1 3.5-5.1 [facility]ererum or plasma chloride measurement (moles/volume)2019-09-07 23:09:00* Test Item Value Reference Range Interpretation Comments Chloride Level (test code = 2075-0) 112 98-107 [facility]ererum or plasma carbon dioxide, total measurement (moles/volume)2019-09-07 23:09:00* Test Item Value Reference Range Interpretation Comments Carbon Dioxide Level (test code = 2028-9) [facility]ererum or plasma anion oeh1447-94-59 23:09:00* Test Item Value Reference Range Interpretation Comments Anion Gap (test code = 45163-2) 15.1 8-16 [facility]ererum or plasma urea nitrogen measurement (mass/volume)2019-09-07 23:09:00* Test Item Value Reference Range Interpretation Comments Blood Urea Nitrogen (test code = 3094-0) 6 7-26 [facility]ererum or plasma creatinine measurement (mass/volume)2019-09-07 23:09:00* Test Item Value Reference Range Interpretation Comments Creatinine (test code = 2160-0) 0.75 0.57-1.11 [facility]ererum or plasma urea nitrogen/creatinine mass npfye1037-80-91 23:09:00* Test Item Value Reference Range Interpretation Comments BUN/Creatinine Ratio (test code = 3097-3) 8 6-25 [facility] HospitalEstimated glomerular filtration rate (GFR) hjjiqkruetfus2137-20-05 23:09:00* Test Item Value Reference Range Interpretation Comments Estimat Glomerular Filtration Rate (test code = 404678739) > 60 >60 Ranges were taken from the National Kidney Disease Education Program and the [facility] literature.Reference ranges:60 or greater: [place]w70-47 ( for 3 consecutive months): Chronic kidney disease 15 or less: Kidney failureMemorial Hermann Orthopedic & Spine HospitalGlucose jbptpsffbpy0087-73-21 23:09:00* Test Item Value Reference Range Interpretation Comments Glucose Level (test code = FEW6678) 102 74-118 [facility]ere[facility] or plasma calcium measurement (mass/volume)2019-09-07 23:09:00* Test Item Value Reference Range Interpretation Comments Calcium Level (test code = 84112-5) 8.2 8.4-10.2 [facility]ererum or plasma total bilirubin measurement (mass/volume)2019-09-07 23:09:00* Test Item Value Reference Range Interpretation Comments Total Bilirubin (test code = 1975-2) 0.7 0.2-1.2 [facility] HospitalFluoroscopic procedure less than one hour icuntvsa2151-96-92 23:09:00* Test Item Value Reference Range Interpretation Comments Aspartate Amino Transf (AST/SGOT) (test code = Aspartate Amino Transf (AST/SGOT)) 51 5-34 [facility] alanine aminotransferase measurement (enzymatic activity/volume)2019-09-07 23:09:00* Test Item Value Reference Range Interpretation Comments Alanine Aminotransferase (ALT/SGPT) (test code = 1742-6) 32 0-55 [facility] plasma protein measurement (mass/volume)2019-09-07 23:09:00* Test Item Value Reference Range Interpretation Comments Total Protein (test code = 2885-2) 6.3 6.5-8.1 [facility] plasma albumin measurement (mass/volume)2019-09-07 23:09:00* Test Item Value Reference Range Interpretation Comments Albumin (test code = 1751-7) 3.8 3.5-5.0 [facility]Plasma globulin measurement (mass/volume) 2019-09-07 23:09:00* Test Item Value Reference Range Interpretation Comments Globulin (test code = 84980-6) 2.5 2.3-3.5 [facility] albumin/globulin mass [id number] 23:09:00* Test Item Value Reference Range Interpretation Comments Albumin/Globulin Ratio (test code = 1759-0) 1.5 0.8-2.0 [facility] plasma alkaline phosphatase measurement (enzymatic activity/volume)2019-09-07 23:09:00* Test Item Value Reference Range Interpretation Comments Alkaline Phosphatase (test code = 6768-6) 76 40-150 [facility] creatine kinase measurement (enzymatic activity/volume)2019-09-07 23:09:00* Test Item Value Reference Range Interpretation Comments Creatine Kinase (test code = 2157-6) 433 29-168 [facility]ere[facility] or plasma creatine kinase MB measurement (mass/volume)2019-09-07 23:09:00* Test Item Value Reference Range Interpretation Comments Creatine Kinase MB (test code = 85026-6) 3.10 0-4.3 [facility] plasma troponin i.cardiac measurement (mass/volume)2019-09-07 23:09:00* Test Item Value Reference Range Interpretation Comments Troponin I (test code = 62657-0) < 0.05 0.0-0.40 [facility] ethanol measurement (mass/volume)2019-09-07 23:09:00* Test Item Value Reference Range Interpretation Comments Ethyl Alcohol Level (test code = 5643-2) 210.8 0.0-10.0 [facility] HospitalCHEST SINGLE (PORTABLE)2019-09-07 20:49:00 [place] [address] Patient Name: DORIAN DUBON MR #: [id number] : 1970 Age/Sex: 48/F Req #: [id number] Adm Physician: Ordered by: AMINAH GALLEGOS DO Report #: [id number] Location: ER Room/Bed: Procedure: [id number] DX/CHEST SIN GLE (PORTABLE) Exam Date: 09/07/19 [...] 09/07/192049 COPY TO: AMINAH GALLEGOS DO URINALYSIS [id number] 23:42:00* Test Item Value Reference Range Interpretation [...] Urine Source? Clean CatchDRUGS OF ABUSE SCREEN [id number] 23:42:00* Test Item Value Reference Range Interpretation [...] NEGATIVE <300 ng/mL Urine Source? Clean CatchURINALYSIS [id number] 23:22:00* Test Item Value Reference Range Interpretation [...] Urine Source? Clean CatchDRUGS OF ABUSE SCREEN [id number] 23:22:00* Test Item Value Reference Range Interpretation [...] [place]) <300 ng/mL Urine Source? Clean CatchURINALYSIS [id number] 23:17:00* Test Item Value Reference Range Interpretation [...] Urine Source? Clean CatchDRUGS OF ABUSE SCREEN [id number] 23:17:00* Test Item Value Reference Range Interpretation [...] Urine Source? Clean Catch- XR CHEST 1 [id number] 22:36:00 FAX: Danya Sutton [phone] [place]: B St: REG Name: DORIAN KNAPP [facility] : [birth year] Age/S: 48/F Viridiana Santizo Unit #: [id number] Loc: [place] [address] Phys: Danya Alejandro MD Acct: [id number] Dis Date: Status: REG ER PHONE #: [phone] Exam Date: 09/06/20192204 FAX #: [phone] Reason: CHEST PAIN EXAMS: CPT CODE: [id number] XR CHEST 1 V 24624 LOCATION: H43 EXAM: - XR CHEST 1 V HISTORY: CHEST PAIN TECHNIQUE: Frontal view of the chest. COMPARISON: 11/01/2017 FINDINGS: The lungs are adequately inflated and clear. No evidence of pne umothorax or pleural effusion. Normal heart size. Mediastinal con tours are within normal limits. Partially visualized postsurgical changes noted at the lower cervical spine. IMPRESSION: No evidence of acute cardiopulmonary disease. at 2239 Reported and signed by: Bruna Carty M.D. CC: Danya Alejandro MD Technologist: JOSESITO RM; Zachery Landry De La R panchito, RT(R Trnscrd Date/Time/By: 09/06/2019 (0590) : By: [id number] Orig Print D/T: S: 09/06/2019 (5854) PAGE 1 Signed Report B-TYPE NATRIURETIC [id number] 21:52:00* Test Item Value Reference Range Interpretation Comments B-TYPE NATRIURETIC PEPTIDE (test code = BNP) 30.77 pgram/mL 0-100 N BASIC METABOLIC [id number] 21:34:00* Test Item Value Reference Range Interpretation [...] CA) 9.0 mg/dL 8.5-10.1 N HEPATIC FUNCTION [id number] 21:34:00* Test Item Value Reference Range Interpretation [...] reference range due to change in reagent. [id number] 21:34:00* Test Item Value Reference Range Interpretation Comments LIPASE (test code = LIP) 107 U/L 73.0-393.0 N [id number] 21:34:00* Test Item Value Reference Range Interpretation Comments MAGNESIUM (test code = MAG) 2.3 mg/dL 1.8-2.4 N HCG SERUM [id number] 21:34:00* Test Item Value Reference Range Interpretation Comments HCG SERUM QUAL (test code = HCGQL) NEGATIVE NEGATIVE This HCGQL test is NOT applicable for MALE patients.Check with nurse about probable order error.If Tumor Marker Test needed, nurse should order test "HCGTU"(Test #550.13027) [id number] 21:34:00* Test Item Value Reference Range Interpretation Comments TROPONIN-I (test code = TROPI) <0.015 ng/mL 0-0.045 N [id number] 21:34:00* Test Item Value Reference Range Interpretation Comments ALCOHOL (test code = ALC) 265 mg/dL 0.0-3.0 H -- INTERPRETIVE DATA NOTE: POSITIVE SCREENING RESULTS SHOULD BE CONSIDERED PRESUMPTIVE.WHEN COLLECTED FOR MEDICAL PURPOSES ONLY. SPECIMEN WILL NOTBE COLLECTED BY CHAIN OF CUSTODY.IF A CONFIRMATION OF POSITIVE RESULTS IS DESIRED, ACONFIRMATION TEST MUST BE REQUESTED BY THE PHYSICIAN AT ANADDITIONAL CHARGE TO THE PATIENT. PROTHROMBIN [id number] 21:32:00* Test Item Value Reference Range Interpretation [...] (2.5-3.5) IS PATIENT ON ANTICOAGULANTS? NTHROMBOPLASTIN TIME [id number] 21:32:00* Test Item Value Reference Range Interpretation Comments THROMBOPLASTIN TIME PARTIAL (test code = PTT) 33.8 seconds 23.0-37. 0 N IS PATIENT ON ANTICOAGULANTS? [id number] 21:29:00* Test Item Value Reference Range Interpretation Comments ACETAMINOPHEN (test code = ACET) < 10 mcg/mL 10-30 L A RANGE OF 10-30 mcg/mL IS A THERAPEUTIC RANGE. TOXIC CONCENTRATIONS: >150 mcg/mL AT 4 HOURS AFTER INGESTION >= 50 mcg/mL AT 12 HOURS AFTER INGESTION [id number] 21:29:00* Test Item Value Reference Range Interpretation Comments SALICYLATE (test code = DIANN) < 1.7 mg/dL 2.8-20.0 L BASIC METABOLIC [id number] 21:23:00* Test Item Value Reference Range Interpretation [...] code = CA) mg/dL 8.5-10.1 HEPATIC FUNCTION [id number] 21:23:00* Test Item Value Reference Range Interpretation [...] TOTAL (test code = ALKP) IUnit/L 45-117 [id number] 21:23:00* Test Item Value Reference Range Interpretation Comments LIPASE (test code = LIP) U/L 73.0-393.0 [id number] 21:23:00* Test Item Value Reference Range Interpretation Comments MAGNESIUM (test code = MAG) mg/dL 1.8-2.4 HCG SERUM [id number] 21:23:00* Test Item Value Reference Range Interpretation Comments HCG SERUM QUAL (test code = HCGQL) NEGATIVE NEGATIVE This HCGQL test is NOT applicable for MALE patients.Check with nurse about probable order error.If Tumor Marker Test needed, nurse should order test "HCGTU"(Test #550.79033) [id number] 21:23:00* Test Item Value Reference Range Interpretation Comments TROPONIN-I (test code = TROPI) ng/mL 0-0.045 [id number] 21:23:00* Test Item Value Reference Range Interpretation Comments ALCOHOL (test code = ALC) mg/dL 0-3 BASIC METABOLIC [id number] 21:22:00* Test Item Value Reference Range Interpretation [...] code = CA) mg/dL 8.5-10.1 HEPATIC FUNCTION [id number] 21:22:00* Test Item Value Reference Range Interpretation [...] TOTAL (test code = ALKP) IUnit/L 45-117 [id number] 21:22:00* Test Item Value Reference Range Interpretation Comments LIPASE (test code = LIP) U/L 73.0-393.0 [id number] 21:22:00* Test Item Value Reference Range Interpretation Comments MAGNESIUM (test code = MAG) mg/dL 1.8-2.4 HCG SERUM [id number] 21:22:00* Test Item Value Reference Range Interpretation Comments HCG SERUM QUAL (test code = HCGQL) NEGATIVE NEGATIVE This HCGQL test is NOT applicable for MALE patients.Check with nurse about probable order error.If Tumor Marker Test needed, nurse should order test "HCGTU"(Test #550.28709) [id number] 21:22:00* Test Item Value Reference Range Interpretation Comments TROPONIN-I (test code = TROPI) ng/mL 0-0.045 [id number] 21:22:00* Test Item Value Reference Range Interpretation Comments ALCOHOL (test code = ALC) mg/dL 0-3 CBC W/O [id number] 21:21:00* Test Item Value Reference Range Interpretation [...] MPV) 10.1 fL 6.7-11.0 N CBC W/O [id number] 21:19:00* Test Item Value Reference Range Interpretation [...] MPV) fL 6.7-11.0 MRI LUMBAR SPINE W/O [id number] 00:52:18IMPRESSION: 1. Normal conus medullaris and cauda [...] L1-2 to L5-S1 with loss of normal G3zgxumoV7-R 2: Minimal symmetric disc bulge without canal [...] the f indings in this report.Signed By: Kairs Silva MD, 06/05/2019 12:52 [facility] Olnkeiyoolo7419-36-41 16:18:40Karl Dutton NP 06/03/2019 4:28 PMSplint ApplicationPerformed by: Karl Dutton NPAuthorized by: Karl Dutton NP Consent: Consent obtained: Verbal Consent given by: Patient Risks discussed: Skin discoloration, distal paresthesia, pain and swelling Alternatives discussed: ReferralPre-procedure details: Sensation: Normal Skin color: PinkProcedure details: Laterality: Left Location: Ankle Ankle: L ankle Supplies used: Aircast and James wrap.Post-procedure details: Pain: Unchanged Sensation: Normal Skin color: [place] Patient tolerance of procedure: Tolerated well, no immediate complicationsHolmes MethodistXR Ankle 3+ Vw [id number] 15:50:13Hm Interface, Radiology Results 06/03/2019 3:53 PM CSTEXAMINATION: XR ANKLE 3 VW LEFTCLINICAL HISTORY: Ankle pain initial examCOMPARISON: No Pr iorIMPRESSION:1.The bones, soft tissues and joints are unremarkable.[facility]-[id number] YZFHouston MethodistXR Foot 3+ Vw [id number] 15:39:11Hm Interface, Radiology Results 06/03/2019 3:42 PM CSTEXAMINATION: XR FOOT 3 VW LEFTCLINICAL HISTORY: Foot pain chronic etiol unknown initial examCOMPARISON: None.TECHNIQUE: 3 views of the left foot obtained.IMPRESSION:Mi ld degenerative spurring at the ankle. Tiny plantar calcaneal spur. No acute fra cture or dislocation or periarticular erosion identified. [facility]-EB07XELEZeifpry MethodistBlood culture, aerobic & fnnfdpznu6048-16-02 19:03:05* Test Item Value Reference Range Interpretation Comments Blood culture isolate (test code = 600-7) No growth after 5 days of incubation. Specimen InformationSpecimen Source: BloodSpecimen Site: LFT HAND [facility] MethodistStrep screen [id number] 19:34:27* Test Item Value Reference Range Interpretation Comments Strep screen culture isolate (test code = 2246) No bet a hemolytic Streptococci isolated Specimen Information Specimen Source: ThroatSpecimen Site: Not otherwise specified [facility] MethodistLactic acid [id number] 04:35:13* Test Item Value Reference Range Interpretation Comments Lactic acid (test code = 46518-8) 1.8 mmol/L 0.5-2.2 Holmes MethodistLactic acid level, SEPSIS - Now and repeat 2x every 3 hours 2019-04-16 00:26:13* Test Item Value Reference Range Interpretation Comments Lactic acid (test code = 83039-2) 2.7 mmol/L 0.5-2.2 H Results called to and read back by Ernesto Cordero/TAMRA at 04/16/2019 00:26 by ln. Lab Interpretation (test code = 76209-8) Abnormal [facility] HospitalistRespiratory pathogen [id number] 21:24:52Respiratory pathogen panelNegative for all pathogens tested:Negative for AdenovirusNegative for Coronavirus UUQ1Rsthcbdw for Coronavirus HS32Bqliiztw for Coronavirus 229ENegative for Coronavirus IW83Qpfrmhjd for Human MetapneumovirusNegative for Rhinovirus/EnterovirusNegative for Influenza ANegative for Influenza A/H1N egative for Influenza A/L5Qsxxmwrr for Influenza A/H1-2009Negative for Influenza BNegative for [...] InformationSpecimen Source: NasopharyngealSpecimen Site: Not otherwise specified [facility] MethodistSepsis Clinical Pqijqmcjsf9586-73-09 16:32:18Lucia Wilburn NP 04/15/2019 4:42 PMSource: Respiratory [...] noted on chest xray. Discussed with Emmanual GOVERNMENT AFFAIRS MANAGER, additional fluid resuscitation being added. Defer further management to primary team. Patient appears in no acute distress at this time. Sepsis Clinical AssessmentPerformed by: Lucia Wilburn NPAuthorized by: Lucia Wilburn NP Sepsis Clinical Assessment General Assessment InformationCurrent sepsis score: 0 On comfort care?: No If score does not worsen, snooze alerts until: 04/15/2019 04:32 EMPLOYEE BENEFITS COORDINATOR SIRS Criteria Heart rate > 90 bpm [...] to the MAR for actual med/fluid administrations.Pepito McnultyCreatine kinase, total (CPK)2019-04-15 16:01:13* Test Item Value Reference Range Interpretation Comments Creatine kinase (test code = 2157-6) 63 U/L 26-192 [facility] MethodistGroup A strep, rapid gtcuxgc2255-99-10 09:45:12* Test Item Value Reference Range Interpretation Comments Group A strep, rapid antigen result (test code = 17565 79) Negative for Group A Streptococcus antigen. Specimen Informat ionSpecimen Source: ThroatSpecimen Site: Not otherwise specified [facility] MethodistInfluenza antigen test, reflex negative to [id number] 09:39:46* Test Item Value Reference Range Interpretation Comments Influenza antigen (test code = 28350-4) Negative for Influenza A/B antigen. Specimen InformationSpecimen Source: NasopharyngealSpecimen Site: Not otherwise specified [facility] MethodistXR Chest 2 [id number] 09:34:43Hm Interface, Radiology Results - 04/15/2019 9:37 AM CSTEXAMINATION: XR CHEST 2 VWCLINICAL HISTORY: Cough new onsetCOMPARISON: August 18, 2017 chestIMPRESSION:Moderate lingular pneumoniaPreviously noted right lower lobe pneumonia has clearedNo congestion effusion or pneumothoraxCardiomediastinal silhouette normal size.Cervical fixator as on previousTwo view chest.STJO-1HS4758WJETmnpayi Synagogue Comprehensive metabolic gneda2396-58-10 09:27:30* Test Item Value Reference Range Interpretation Comments Sodium (test code = 2951-2) 135 135- 150 mEq/L Potassium (test code = 2823-3) 4.2 3.5- 5.0 mEq/L Chloride (test code = 2075-0) 99 98- 112 mEq/L CO2 (test code = 2027-9) 22 mmol/L 24-31 L Anion gap (test code = 37622-1) 14@ANIO 7- 15 mEq/L BUN (test code = 3094-0) 8 mg/dL 7-18 Creatinine (test code = 2160-0) 0.90 mg/dL 0.5-0.9 Glucose (test code = 2345-7) 93 mg/dL 65-100 Calcium (test code = 42018-2) 9.6 mg/dL 8.3-10.2 Protein (test code = [...] 0.2-1.2 H Lab Interpretation (test code = 46764-4) Abnormal [facility] MethodistEstimated [id number] 09:27:29* Test Item Value Reference Range Interpretation Comments Estimated GFR (test code = 5488) 74 mL/min/1.73 m2 Catergory Units InterpretationG1 >=90 Normal or highG2 60-89 Mildly awmnxblqrM3j 45-59 Mildly to moderately kubquzmzvZ4f 30-44 Moderately to severely decreasedG4 15-29 Severely decreasedG5 <15 Kidney failureThe eGFR was calculated using the Chronic Kidney Disease Epidemiology Collaboration (CKD-EPI) equation. Interpretation is based on recommendations of the National Kidney Foundation-Kidney Disease Outcomes Quality Initiative (NKF-KDOQI) published in 2014. [facility] MethodistCBC with platelet and ineppnlleysh3223-94-87 09:12:16* Test Item Value Reference Range Interpretation Comments WBC (test code = 62826-4) 10.1 4.2- 11.0 k/uL RBC (test code = 84500-7) 4.50 m/uL 4.04-5.86 HGB (test code = 718-7) 14.2 g/dL 11.5-15.3 HCT (test code = 4544-3) 42.7 % 34-45 MCV (test code = 787-2) 94.9 fL 80-98 MCH (test code = 785-6) 31.6 pg 27-34 MCHC (test code = 786-4) 33.3 g/dL 31.5-36.5 RDW - SD (test code = 09810-6) 44.8 fL 37-51 MPV (test code = 00599-9) 9.8 fL 7.4-10.4 Platelet count (test code = 77070-4) 320 150- 400 k/uL Nucleated RBC (test code = 80788-3) 0.00 /100 WBC Neutrophils (test code = 47486-6) 68.4 % 36-66 H Lymphocytes (test code = 02361-0) 17.8 % 24-44 L Monocytes (test code = 05142-7) 9.7 % 0-6 H Eosinophils (test code = 36785-1) 3.0 % 0-6 Basophils (test code = 11605-9) 0.7 % 0-1.2 Immature granulocytes (test code = 61919-5) 0.4 % 0-1 Lab Interpretation (test code = 90483-1) Abnormal [facility] Lumbar Spine Wo Gvypsuhz4978-41-65 22:56:56Hm Interface, Radiology Results 02/04/2019 11:00 PM [...] demonstrates no joe dence of a conus lesion.IMPRESSION:Dhjs-ec-mqeraqlm degenerative changes without spinal canal or foraminal stenosis. There is no fracture demonstrated.[facility]-2UA64 42QMXHouston [facility] Renal Stone Srwpnzpy7246-00-77 22:59:04Hm Interface, Radiology Results Incoming 01/04/2019 11:02 [...] acute abnormality identified in the abdomen or pelvis.[facility]-[id number] [facility] MethodistUrinalysis screen and microscopy, with reflex to culture 2019-01-04 21:18:38* Test Item Value Reference Range Interpretation Comments Specimen site (test code = 3418830) Clean catch Color, UA (test code = 5778-6) Yellow Appearance, UA (test code = 5767-9) Clear Specific gravity, UA (test code = 5811-5) 1.020 1.001-1.035 pH, UA (test code = 5803-2) 7.0 5.0-8.5 Protein, UA (test code = 71994-5) Negative Negative Glucose, UA (test code = 04763-8) Negative Negative Ketones, UA (test code = 2514-8) Negative Negative Bilirubin, UA (test code = 5770-3) Negative Negative Blood, UA (test code = 5794-3) Moderate Negative A Nitrite, UA (test code = 5802-4) Negative Negative Urobilinogen, UA (test code = 09468-1) Negative <2.0 Leukocyte esterase, UA (test code = 5799-2) Negative Negative Epithelial cells, UA (test code = 5787-7) Few /HPF WBC, UA (test code = 5821-4) None seen 0- 5 /HPF RBC, UA (test code = 48426-9) 14 0- 5 /HPF H Bacteria, UA (test code = 73405-1) Trace None seen Yeast, UA (test code = 56354-6) None seen Yeast with pseudohyphae, UA (test code = 97924-0) None seen Lab Interpretation (test code = 78546-0) Abnormal [facility] MethodistCT Lumbar Spine Wo Pomrbybo5789-74-99 12:11:20Hm Interface, Radiology Results 01/03/2019 12:14 PM [...] The details can be further evaluated with MRI.1WT-5LI3519F44 [facility] MethodistLDL cholesterol, efefs3884-23-72 10:37:00* Test Item Value Reference Range Interpretation Comments LDL cholesterol, serum (test code = 2089-1) 105 mg/dL 0-99 H [facility] low density doleudmbvzxx2584-86-97 10:37:00* Test Item Value Reference Range Interpretation Comments very low density lipoproteins (test code = 2548) 41 mg/dL 5-40 H [facility]HDL [facility], mkjfl4529-79-44 10:37:00* Test Item Value Reference Range Interpretation Comments HDL cholesterol, serum (test code = 2085-9) 97 mg/dL >39 [facility]rig[facility], serum, rlhrdlj6352-90-30 10:37:00* Test Item Value Reference Range Interpretation Comments triglyceride, serum, fasting (test code = 2571-8) 207 mg/dL 0-14 9 H [facility] Healthcholesterol, hglww1211-73-06 10:37:00* Test Item Value Reference Range Interpretation Comments cholesterol, serum (test code = 2093-3) 243 mg/dL 100-199 H [facility] Healthalanine aminotransferase (SGPT), ymkul1471-66-31 10:37:00 * Test Item Value Reference Range Interpretation Comments alanine aminotransferase (SGPT), serum (test code = 40) 24 1/L 0-32 [facility] Healthaspartate aminotransferase (SGOT), iqbhn8363-09-71 10:37:00* Test Item Value Reference Range Interpretation Comments aspartate aminotransferase (SGOT), serum (test code = 39) 28 1/L 0-40 [facility] Healthalkaline phosphatase, yozvh4182-99-62 10:37:00* Test Item Value Reference Range Interpretation Comments alkaline phosphatase, serum (test code = 3) 86 1/L 39-117 [facility] Healthbilirubin, serum, gfaxm8439-05-79 10:37:00* Test Item Value Reference Range Interpretation Comments bilirubin, serum, total (test code = 43) 1.3 mg/dL 0.0-1.2 H [facility] Healthalbumin/globulin ratio, wfyjd9394-06-89 10:37:00* Test Item Value Reference Range Interpretation Comments albumin/globulin ratio, serum (test code = 146) 1.9 1.2-2. 2 [facility] Healthglobulin, mswmm0614-56-20 10:37:00* Test Item Value Reference Range Interpretation Comments globulin, serum (test code = 3059) 2.5 1.5-4.5 [facility] Healthalbumin, fqwsm2565-44-89 10:37:00* Test Item Value Reference Range Interpretation Comments albumin, serum (test code = 2) 4.7 g/dL 3.5-5.5 [facility] Healthprotein, total, gkxze0746-37-36 10:37:00* Test Item Value Reference Range Interpretation Comments protein, total, serum (test code = 36) 7.2 g/dL 6.0-8.5 [facility] Healthcalcium, isknl9473-16-19 10:37:00* Test Item Value Reference Range Interpretation Comments calcium, serum (test code = 11) 10.2 mg/dL 8.7-10.2 [facility] Healthcarbon dioxide, venous fndpn3188-85-67 10:37:00* Test Item Value Reference Range Interpretation Comments carbon dioxide, venous blood (test code = 15) 28 mmol/L 20-29 [facility] Healthchloride, dyfnd8130-61-12 10:37:00* Test Item Value Reference Range Interpretation Comments chloride, serum (test code = 13) 98 mmol/L 96-106 [facility] Healthpotassium, bupmu6957-58-28 10:37:00* Test Item Value Reference Range Interpretation Comments potassium, serum (test code = 35) 4.7 mmol/L 3.5-5.2 [facility] Healthsodium, xyrye0207-93-68 10:37:00* Test Item Value Reference Range Interpretation Comments sodium, serum (test code = 159) 140 mmol/L 134-144 [facility] Healthurea nitrogen/creatinine ratio, vvpub9978-87-06 10:37:00 * Test Item Value Reference Range Interpretation Comments urea nitrogen/creatinine ratio, serum (test code = 2462) 15 9-23 [facility] HealtheGFR if Bsmtdmog7210-71-44 10:37:00* Test Item Value Reference Range Interpretation Comments eGFR if (test code = 368108) 88 mL/min/((173/100). m2) >59 [facility] HealthEstimated Glomerular Filtration Rate (calc)2018-09-27 10:37:00* Test Item Value Reference Range Interpretation Comments Estimated Glomerular Filtration Rate (calc) (test code = 88017) 76 mL/min/((173/100).m2) >59 [facility] Healthcreatinine, pmzhx0680-35-05 10:37:00* Test Item Value Reference Range Interpretation Comments creatinine, serum (test code = 18) 0.89 mg/dL 0.57-1.00 [facility] Healthurea nitrogen, aeixu1722-11-13 10:37:00* Test Item Value Reference Range Interpretation Comments urea nitrogen, blood (test code = 9) 13 mg/dL 6-24 [facility] Healthblood glucose, aosvyt6847-72-25 10:37:00* Test Item Value Reference Range Interpretation Comments blood glucose, random (test code = 8) 85 mg/dL 65-99 [facility] Healthimmature granulocytes, percentage of total cells, blood 2018-09-27 10:37:00* Test Item Value Reference Range Interpretation Comments immature granulocytes, percentage of total cells, bloo d (test code = 977386) 1 % [facility] Healthbasophil count, sbiokqwd7569-12-87 10:37:00* Test Item Value Reference Range Interpretation Comments basophil count, absolute (test code = 06825) 0.0 x10E3/uL 0.0-0.2 [facility] HealthEosinophil Absolute Igogw2024-07-97 10:37:00* Test Item Value Reference Range Interpretation Comments Eosinophil Absolute Count (test code = 920284) 0.3 X10E3/UL 0.0-0.4 [facility] Healthmonocyte count, blood, wsddhpknq8208-63-39 10:37:00* Test Item Value Reference Range Interpretation Comments monocyte count, blood, automated (test code = 3076) 1.0 X10E3/UL 0. 1-0.9 H [facility] Healthlymphocyte count, blood, lzpbdjrhi2886-23-84 10:37:00* Test Item Value Reference Range Interpretation Comments lymphocyte count, blood, automated (test code = 3074) 3.0 X10E3/UL 0.7-3.1 [facility] HealthAbsolute Hdfllujdwhf7019-85-94 10:37:00* Test Item Value Reference Range Interpretation Comments Absolute Neutrophils (test code = 25229) 7.1 X10E3/UL 1.4-7.0 [facility]bas[facility] as percent of blood [id number] 10:37:00* Test Item Value Reference Range Interpretation Comments basophils as percent of blood leukocytes (test code = 2426) 0 % [facility] [id number] 10:37:00* Test Item Value Reference Range Interpretation Comments eosinophils as percent of blood leukocytes (test code = 4170) 3 % [facility] Healthmonocytes as percent of blood [id number] 10:37:00* Test Item Value Reference Range Interpretation Comments monocytes as percent of blood leukocytes (test code = 2421) 9 % [facility] percent of blood [id number] 10:37:00* Test Item Value Reference Range Interpretation Comments lymphocytes as percent of blood leukocytes (test code = 317) 26 % [facility] Healthneutrophils as percent of blood [id number] 10:37:00* Test Item Value Reference Range Interpretation Comments neutrophils as percent of blood leukocytes (test code = 316) 61 % [facility]platelet [id number] 10:37:00* Test Item Value Reference Range Interpretation Comments platelet count (test code = 66) 310 X10E3/UL 150-450 [facility] blood cell distribution [id number] 10:37:00* Test Item Value Reference Range Interpretation Comments red blood cell distribution width (test code = 1030) 15.3 % 1 2.3-15.4 [facility] corpuscular hemoglobin concentration, [id number] 10:37:00* Test Item Value Reference Range Interpretation Comments mean corpuscular hemoglobin concentration, RBC (test code = 1029) 33.0 G/DL 31.5-35.7 [facility] corpuscular hemoglobin, [id number] 10:37:00* Test Item Value Reference Range Interpretation Comments mean corpuscular hemoglobin, RBC (test code = 1031) 32.5 pg 26 .6-33.0 [facility] corpuscular volume, [id number] 10:37:00* Test Item Value Reference Range Interpretation Comments mean corpuscular volume, RBC (test code = 315) 99 fL 79-97 [facility]hematocrit, [id number] 10:37:00* Test Item Value Reference Range Interpretation Comments hematocrit, blood (test code = 64) 44.9 % 34.0-46.6 [facility]hemoglobin, [id number] 10:37:00* Test Item Value Reference Range Interpretation Comments hemoglobin, blood (test code = 65) 14.8 g/dL 11.1-15.9 [facility] (RBC) [id number] 10:37:00* Test Item Value Reference Range Interpretation Comments erythrocyte (RBC) count (test code = 67) 4.55 X10E6/UL 3.77-5.28 [facility]leukocyte count, [id number] 10:37:00* Test Item Value Reference Range Interpretation Comments leukocyte count, blood (test code = 68) 11.5 X10E3/UL 3.4-10.8 [facility] serum, [id number] 10:37:00* Test Item Value Reference Range Interpretation Comments thyroxine, serum, free (test code = 24) 1.19 ng/dL 0.82-1.77 [facility]hthyroid stimulating hormone, [id number] 10:37:00* Test Item Value Reference Range Interpretation Comments thyroid stimulating hormone, serum (test code = 29) 1.200 u[iU]/ mL 0.450-4.500 [facility]
== END 2019-12-07 19:35 | disposition home or self-care (01) ==
LOC: ER 19:15
DX: J40 Bronchitis, not specified as acute or chronic (principal); R05 Cough; R53.81 Other malaise
CPT/HCPCS: 99282

== ENCOUNTER 2020-02-22 13:32 | Emergency (ER) | payer SELFPAY ==
[~2020-02-22] VITALS: Ht 157.5 cm; Wt 59.0 kg
== END 2020-02-22 14:57 | disposition home or self-care (01) ==
LOC: ER 14:00
DX: R53.83 Other fatigue (principal); R53.1 Weakness
CPT/HCPCS: 99283

== ENCOUNTER 2020-02-25 16:04 | Emergency (ER) | payer SELFPAY ==
[~2020-02-25] VITALS: Ht 157.5 cm; Wt 59.0 kg
[2020-02-25 18:41] LABS: BASOPHILS # (AUTO) 0.1 (0.0-0.1); BASOPHILS % 0.7 % (0.0-1.0); EOSINOPHILS # (AUTO) 0.5 (0.0-0.4); EOSINOPHILS % 5.5 % (0.0-6.0); HEMATOCRIT 46.2 % (34.2-44.1); HEMOGLOBIN 15.4 g/dL (12.0-16.0); LYMPHOCYTES # (AUTO) 3.3 (1.0-3.2); LYMPHOCYTES % 34.9 % (18.0-39.1); MEAN CORPUSCULAR HEMOGLOBIN 31.6 pg (28-32); MEAN CORPUSCULAR HGB CONC 33.3 g/dL (31-35); MEAN CORPUSCULAR VOLUME 94.9 fL (81-99); MONOCYTES # (AUTO) 0.7 (0.2-0.8); MONOCYTES % 7.2 % (4.4-11.3); NEUTROPHILS # (AUTO) 4.8 (2.1-6.9); NEUTROPHILS % 51.4 % (38.7-80.0); PLATELET COUNT 342 x10e3/uL (140-360); RED BLOOD COUNT 4.87 x10e6/uL (3.6-5.1)
[2020-02-25 18:50] LABS: INR 0.83; PROTHROMBIN TIME 11.8 seconds (11.9-14.5)
[2020-02-25 18:51] LABS: PARTIAL THROMBOPLASTIN TIME 29.8 seconds (23.8-35.5)
[2020-02-25 19:00] LABS: ALANINE AMINOTRANSFERASE 26 IU/L (0-55); ALBUMIN 4.6 g/dL (3.5-5.0); ALBUMIN/GLOBULIN RATIO 1.3 (0.8-2.0); ALKALINE PHOSPHATASE 81 IU/L (40-150); ANION GAP 14.2 mmol/L (8-16); BLOOD UREA NITROGEN 11 mg/dL (7-26); BUN/CREATININE RATIO 13 (6-25); CALCIUM 10.1 mg/dL (8.4-10.2); CARBON DIOXIDE 27 mmol/L (22-29); CHLORIDE 104 mmol/L (98-107); CREATINE KINASE 140 IU/L (29-168); CREATININE, SERUM 0.83 mg/dL (0.57-1.11); EST GLOMERULAR FILTRATION RATE > 60 ML/MIN (60-); GLUCOSE 98 mg/dL (74-118); POTASSIUM 4.2 mmol/L (3.5-5.1); SODIUM 141 mmol/L (136-145)
[2020-02-25] MEDS ORDERED: ALBUTEROL SULF 0.083% NEB SOLN 3 ML NEB NEB STA (20:44)
[2020-02-25] MEDS ORDERED: METHYLPREDNISOLONE SOD SUCC 125 MG/2ML VIAL IV ONE (20:45)
[2020-02-25] MEDS ORDERED: IPRATROPIUM BROMIDE 0.02% 2.5 ML NEB NEB ONE (20:45)
[2020-02-25 22:37] VITALS: BP 115/85
== END 2020-02-25 22:40 | disposition home or self-care (01) ==
LOC: ER 16:34
DX: J45.909 Unspecified asthma, uncomplicated (principal); R05 Cough; R06.02 Shortness of breath; Z87.891 Personal history of nicotine dependence
CPT/HCPCS: 36415; 71045; 80053; 82550; 82553; 83880; 84484; 85025; 85610; 85730; 93005; 94640; 99284; J2930

== ENCOUNTER 2020-06-10 11:41 | Emergency (ER) | payer SELFPAY ==
[~2020-06-10] VITALS: Ht 157.5 cm; Wt 59.0 kg
[2020-06-10] MEDS ORDERED: FLONASE ALLERG9.9 ML INH (11:56)
[2020-06-10] MEDS ORDERED: AFRIN15 ML INH (11:56)
== END 2020-06-10 12:05 | disposition home or self-care (01) ==
LOC: ER 11:46
DX: H92.02 Otalgia, left ear (principal); R09.81 Nasal congestion; J45.909 Unspecified asthma, uncomplicated
CPT/HCPCS: 99283

== ENCOUNTER 2024-03-25 13:29 | Emergency (ER) | payer OTHER ==
[~2024-03-25] VITALS: Ht 157.5 cm; Wt 59.0 kg
[~2024-03-25 13:29] MED LIST changes: +AFRIN15 ML INH; +FLONASE ALLERG9.9 ML INH
[2024-03-25 13:49] VITALS: TEMP 98.9
[2024-03-25] MEDS: ORPHENADRINE CITRATE 30 MG/ML VIAL IM ONE (14:07)
[2024-03-25] MEDS: LIDOCAINE 4% PATCH TP ONE (14:10)
[2024-03-25] MEDS: HYDROCODONE/APAP 7.5MG-325MG 1 EA TAB PO ONE (15:25)
[2024-03-25] MEDS: HYDROCODONE BIT/ACETAMINOPHEN 2.5 MG/108MG PER 5 ML SOLUTION PO ONE (15:33)
[2024-03-25 16:03] VITALS: PULSE 86; RESP 17
[2024-03-25] MEDS ORDERED: METHOCARBAMOL750 MG PO (16:07)
[2024-03-25 16:18] VITALS: BP 116/85; PULSE 83; RESP 18; O2SAT 96
== END 2024-03-25 16:15 | disposition home or self-care (01) ==
LOC: ER 13:49
DX: M54.2 Cervicalgia (principal); M62.838 Other muscle spasm; J45.909 Unspecified asthma, uncomplicated; M54.9 Dorsalgia, unspecified; G89.29 Other chronic pain; Z85.43 Personal history of malignant neoplasm of ovary; Z79.60 Long term (current) use of unspecified immunomodulators and immunosuppressants
CPT/HCPCS: 99282; J2360